=== PATIENT | female | born 1960 | race Caucasian/White ===

== ENCOUNTER 2020-10-26 09:06 | Inpatient (IN) | payer OTHER ==
[~2020-10-26] VITALS: Ht 162.6 cm; Wt 82.4 kg
[~2020-10-26 09:06] MED LIST: ACET-704 PO; AMOX1TAB61 PO; ASPI81TA50 PO; CANA100T PO; CEPH-264 PO; ERTU15TA PO; METF-658 PO
--- NOTE | 2020-10-26 09:29 | PHYS DOC ---
Past Medical History Past Medical History: Diabetes-Type II Additional Past Medical Histor: DECREASED L KIDNEY FUNCTION Past Surgical History: Other Additional Past Surgical Histo: cyst on L kidney Smoking Status: Former Smoker Alcohol Use: None General Adult EDM: Chief Complaint: ABNORMAL LABS HPI: HPI: This is a pleasant 60-year-old female who presents emergency department after being seen in the local clinic. She was called back because there were signs of kidney failure on her blood work. She had been having some right-sided abdomina l/flank pain. She describes the pain as a bloated sensation on the right abdomen and flank that comes and goes without alleviating factors. It is present now but is mild. She denies vomiting fevers chills or rashes. She denies chest pain or shortness of breath. She has a history of diabetes and takes Metformin but otherwise denies any major medical conditions. She has had a history of a kidney cyst with removal. Review of systems negative for chest pain shortness of breath vomiting fevers chills. All other review of systems negative. ED course: 60-year-old female presenting with signs of renal failure on her outpatient lab work. Labs here show acute renal failure. Potassium within normal limits. Metabolic acidosis present. I spoke with Dr. Senior and informed him about the patient. The patient has UTI so we will give IV Rocephin. Patient's lipase is elevated. CT abdomen pelvis is unremarkable for acute pathology. I spoke to the hospitalist who accepts patient for admission. Heart Score: Risk Factors: Risk Factors: DM, Current or recent (<one month) smoker, HTN, HLP, family history of CAD, obesity. Risk Scores: Score 0 - 3: 2.5% MACE over next 6 weeks - Discharge Home Score 4 - 6: 20.3% MACE over next 6 weeks - Admit for Clinical Observation Score 7 - 10: 72.7% MACE over next 6 weeks - Early Invasive Strategies Allergies: Allergies: Allergies Coded Allergies Type Severity Reaction Last Updated Verified No Known Drug Allergies 03/14/19 No Physical Exam: PE: Constitutional: Well developed, well nourished, no acute distress, non-toxic appearance. [] HENT: Normocephalic, atraumatic, bilateral external ears normal, oropharynx moist, no oral exudates, nose normal. [] Eyes: PERRLA, EOMI, conjunctiva normal, no discharge. [] Neck: Normal range of motion, no tenderness, supple, no stridor. [] Cardiovascular:Heart rate regular rhythm, no murmur [] Lungs & Thorax: Bilateral breath sounds clear to auscultation [] Abdomen: Bowel sounds normal, soft, no tenderness, no masses, no pulsatile masses. No rebound tenderness or guarding. She has some right CVA tenderness without left CVA tenderness Skin: Warm, dry, no erythema, no rash. [] Back: No tenderness midline. Atraumatic. Extremities: No tenderness, no cyanosis, no clubbing, ROM intact, no edema. [] Neurologic: Alert and oriented X 3, normal motor function, normal sensory function, no focal deficits noted. [] Psychologic: Affect normal, judgement normal, mood normal. [] Current Patient Data: Vital Signs: Vital Signs Date Time Temp Pulse Resp B/P (MAP) Pulse Ox O2 Delivery O2 Flow Rate FiO2 10/26/20 09:10 98.9 82 16 220/99 (139) 98 Room Air 98.9 141/93 (109) EKG: EKG: [] EKG shows sinus rhythm with a regular rate. ST segments congruent. Not suggestive of ACS. No peaking T waves. QRS is 98 ms. Radiology/Procedures: Radiology/Procedures: [] Course & Med Decision Making: Course & Med Decision Making Pertinent Labs and Imaging studies reviewed. (See chart for details) [] Dragon Disclaimer: Dragon Disclaimer: This electronic medical record was generated, in whole or in part, using a voice recognition dictation system. Departure Departure Impression: Primary Impression: ARF (acute renal failure) Additional Impression: Acute pancreatitis Disposition: ADMITTED INPT THIS HOSP Admitting Physician: HIMCt Condition: STABLE Referrals: MATA HERNDON DO (PCP) ROGER PENA MD Oct 26, 2020 09:29
[2020-10-26 09:38] LABS: BASO # 0.1 x10^3/uL (0.0-0.2); BASO % 1 % (0-3); EOS # 0.4 x10^3/uL (0.0-0.7); EOS % 4 % (0-3); HEMATOCRIT 31.3 % (36.0-47.0); HEMOGLOBIN 10.5 g/dL (12.0-15.5); LYMPH # 2.1 x10^3/uL (1.0-4.8); LYMPH % 21 % (24-48); MEAN CORPUSCULAR HEMOGLOBIN 28 pg (25-35); MEAN CORPUSCULAR HGB CONC 34 g/dL (31-37); MEAN CORPUSCULAR VOLUME 82 fL (79-100); MONO # 1.1 x10^3/uL (0.0-1.1); MONO % 12 % (0-9); NEUT # 6.1 x10^3/uL (1.8-7.7); NEUT % 62 % (31-73); PLATELET COUNT 321 x10^3/uL (140-400); RED BLOOD COUNT 3.82 x10^6/uL (3.50-5.40); RED CELL DISTRIBUTION WIDTH 15.8 % (11.5-14.5); WHITE BLOOD COUNT 9.8 x10^3/uL (4.0-11.0)
[2020-10-26 09:54] LABS: CALCIUM 8.8 mg/dL (8.5-10.1); CREATININE 8.1 mg/dL (0.6-1.0); POTASSIUM 4.6 mmol/L (3.5-5.1)
[2020-10-26 10:02] LABS: ALBUMIN 3.3 g/dL (3.4-5.0); DIRECT BILIRUBIN 0.1 mg/dL (0.0-0.2); TOTAL BILIRUBIN 0.5 mg/dL (0.2-1.0); TOTAL PROTEIN 7.6 g/dL (6.4-8.2)
--- NOTE | 2020-10-26 10:22 | RAD ---
PQRS Compliance Statement: One or more of the following individualized dose reduction techniques were utilized for this examinat ion: 1. Automated exposure control 2. Adjustment of the mA and/or kV according to patient size 3. Use of iterative reconstruction technique Exam performed: CT scan of the abdomen and pelvis without contrast. Clinical Indication: Right flank pain. Date of Service: 10/26/2020 comparison: CT abdomen and pelvis without contrast from 10/18/2019 and rebecca ors Technique: Contiguous helical acquisitions are obtained through the abdomen and pelvis without IV con trast. Sagittal and coronal reformatted images are obtained and reviewed. CT abdomen and pelvis findings: Small pleural-based soft tissue density linear opacity in the anterior left lower lobe is seen and is stable since prior CT chest from 2019 and is chronic. The right lung base is clear. Visualized heart is normal Lack of IV contrast limits evaluation of abdominal viscera, however the liver spleen and pancreas are normal. Cholelithiasis Both adrenal glands are symmetric. Interval resolution of previously seen lef t hydroureteronephrosis with mild left renal atrophy. No hydronephrosis or nephrolithiasis is seen. A azeem is normal in caliber without aneurysm. The small and large bowel loops are nondilated and unrema rkable. The visualized portion of the appendix is unremarkable. No inflammatory changes are seen in t he right lower quadrant Distal ureters are nondilated. Urinary bladder is decompressed and thick walled. [Uterus is anteverte d. No adnexal masses seen. Mild sigmoid diverticulosis.] No free or focal fluid collections are ident ified. Impression: 1. No acute intra-abdominal or pelvic process detected. 2. Cholelithiasis. 3. Sigmoid diverticulosis without acute diverticulitis. Electronically signed by: Nathalia Win MD (10/26/2020 10:19 AM) [id number]
[2020-10-26] MEDS ORDERED: IV NORMAL SALINE 1000ML BAG 1,000 ML IV ONE (10:30)
[2020-10-26 10:32] LABS: BILIRUBIN,URINE NEGATIVE (NEG); CLARITY,URINE CLEAR; COLOR,URINE YELLOW; NITRITE,URINE NEGATIVE (NEG); PROTEIN,URINE 30 mg/dL (NEG-TRACE); UROBILINOGEN,URINE 0.2 mg/dL (0.2 mg/dL)
[2020-10-26 10:53] LABS: BACTERIA,URINE FEW /HPF (0-FEW); WBC,URINE 20-40 /HPF (0-4)
--- NOTE | 2020-10-26 11:50 | PDOC2 ---
GI CONSULT Date of Service: DATE: 10/26/20 TIME: 11:35 Reason For Consult: elevated lipase HPI: HPI: Pleasant 60 y/o female seen in ER. Advised to come to hospital for abnormal outpt labs. Labs here note BUN 131, Cr 8.1, lipase 1543. We are asked to see re: elevated lipase. She denies abdominal pain. Occasional heartburn after eating spicy foods - probably takes Tums about once weekly. No dysphagia. Has had intermittent vomiting (once of twice weekly) for a few months - occurs in the mornings after brushing teeth but usually is able to eat and drink normally by the end of the day. Hasn't stooled in a few days ("because I'm dehydrated") but usually no issues w/ diarrhea or constipation. No hematemesis, hematochezia, or melena. Might have lost a couple pounds recently. No previous EGD. Says colonoscopy in 2002 at [facility] in [place] showed polyps. Diverticulosis noted on CT. Cholelithiasis on past and present imaging. Had surgery eval in 2019 - no cystic duct obstruction on HIDA. Says she was told not to worry about her gallbladder. Elevated LFTs in the past - normal now. Hepatitis panel negative in 2020. Hepatic steatosis/hepatomegaly on past imaging. No pancreas history. Denies NSAIDs. Recently took muscle relaxer (says took 2 pills) for right flank pain that began about 2 weeks ago without precipitating events. Worse w/ movement. Has improved - no pain currently. ASA 81mg QD. H/o DM on metformin. A1c last year 12. PMH: PMH: CHF, cardiomyopathy, NM, DM nephrostomy FH: Family History: Cancer (mother - kidney, father - prostate), DM Social History: Smoke: Quit ALCOHOL: none Drugs: None ROS: GEN: Denies fevers, chills, sweats HEENT: Denies blurred vision, sore throat CV: Denies chest pain RESP: Denies shortness of air, cough GI: Per HPI : Denies hematuria, dysuria ENDO: ?weight loss NEURO: Denies confusion, dizziness MSK: +weakness SKIN: Denies jaundice, pruritus Vitals: Vitals: Vital Signs Date Time Temp Pulse Resp B/P (MAP) Pulse Ox O2 Delivery O2 Flow Rate FiO2 10/26/20 09:10 98.9 82 16 220/99 (139) 98 Room Air 98.9 141/93 (109) Labs: Labs: Laboratory Tests Test 10/26/20 09:21 10/26/20 10:11 White Blood Count 9.8 x10^3/uL (4.0-11.0) Red Blood Count 3.82 x10^6/uL (3.50-5.40) Hemoglobin 10.5 g/dL (12.0-15.5) Hematocrit 31.3 % (36.0-47.0) Mean Corpuscular Volume 82 fL (79-100) Mean Corpuscular Hemoglobin 28 pg (25-35) Mean Corpuscular Hemoglobin Concent 34 g/dL (31-37) Red Cell Distribution Width 15.8 % (11.5-14.5) Platelet Count 321 x10^3/uL (140-400) Neutrophils (%) (Auto) 62 % (31-73) Lymphocytes (%) (Auto) 21 % (24-48) Monocytes (%) (Auto) 12 % (0-9) Eosinophils (%) (Auto) 4 % (0-3) Basophils (%) (Auto) 1 % (0-3) Neutrophils # (Auto) 6.1 x10^3/uL (1.8-7.7) Lymphocytes # (Auto) 2.1 x10^3/uL (1.0-4.8) Monocytes # (Auto) 1.1 x10^3/uL (0.0-1.1) Eosinophils # (Auto) 0.4 x10^3/uL (0.0-0.7) Basophils # (Auto) 0.1 x10^3/uL (0.0-0.2) Sodium Level 133 mmol/L (136-145) Potassium Level 4.6 mmol/L (3.5-5.1) Chloride Level 98 mmol/L (98-107) Carbon Dioxide Level 19 mmol/L (21-32) Anion Gap 16 (6-14) Blood Urea Nitrogen 131 mg/dL (7-20) Creatinine 8.1 mg/dL (0.6-1.0) Estimated GFR (Cockcroft-Gault) 5.0 Glucose Level 202 mg/dL (70-99) Calcium Level 8.8 mg/dL (8.5-10.1) Total Bilirubin 0.5 mg/dL (0.2-1.0) Direct Bilirubin 0.1 mg/dL (0.0-0.2) Aspartate Amino Transf (AST/SGOT) 10 U/L (15-37) Alanine Aminotransferase (ALT/SGPT) 17 U/L (14-59) Alkaline Phosphatase 63 U/L (46-116) Troponin I Quantitative < 0.017 ng/mL (0.000-0.055) Total Protein 7.6 g/dL (6.4-8.2) Albumin 3.3 g/dL (3.4-5.0) Lipase 1543 U/L (73-393) Urine Collection Type Unknown Urine Color Yellow Urine Clarity Clear Urine pH 6.0 (<5.0-8.0) Urine Specific [place] 1.010 (1.000-1.030) Urine Protein 30 mg/dL (NEG-TRACE) Urine Glucose (UA) 250 mg/dL (NEG) Urine Ketones (Stick) Negative mg/dL (NEG) Urine Blood Small (NEG) Urine Nitrite Negative (NEG) Urine Bilirubin Negative (NEG) Urine Urobilinogen Dipstick 0.2 mg/dL (0.2 mg/dL) Urine Leukocyte Esterase Large (NEG) Urine RBC 3-5 /HPF (0-2) Urine WBC 20-40 /HPF (0-4) Urine Squamous Epithelial Cells Occ /LPF Urine Bacteria Few /HPF (0-FEW) Allergies: Coded Allergies: No Known Drug Allergies (Unverified , 03/14/19) Medications: Current Medications Medications (Trade) Dose Ordered Sig/Nilesh Route PRN Reason Start Time Stop Time Status Last Admin Dose Admin Sodium Chloride 1,000 ml @ 100 mls/hr 1X ONCE IV 10/26/20 10:30 10/26/20 20:29 10/26/20 11:28 Ceftriaxone Sodium (Rocephin) 1 gm 1X ONCE IVP 10/26/20 12:00 10/26/20 12:01 10/26/20 11:28 Imaging: Imaging: CT A/P w/o contrast Small pleural-based soft tissue density linear opacity in the anterior left lower lobe is seen and is stable since prior CT chest from 2019 and is chronic. The right lung base is clear. Visualized heart is normal Lack of IV contrast limits evaluation of abdominal viscera, however the liver spleen and pancreas are normal. Cholelithiasis Both adrenal glands are symmetric. Interval resolution of previously seen left hydroureteronephrosis with mild left renal atrophy. No hydronephrosis or nephrolithiasis is seen. Aorta is normal in caliber without aneurysm. The small and large bowel loops are nondilated and unremarkable. The visualized portion of the appendix is unremarkable. No inflammatory changes are seen in the right lower quadrant Distal ureters are nondilated. Urinary bladder is decompressed and thick walled. [Uterus is anteverted. No adnexal masses seen. Mild sigmoid diverticulosis.] No free or focal fluid collections are identified. Impression: 1. No acute intra-abdominal or pelvic process detected. 2. Cholelithiasis. 3. Sigmoid diverticulosis without acute diverticulitis. PE: GEN: NAD HEENT: Atraumatic, PERRL LUNGS: CTAB HEART: RRR ABD: NABS, S/ND/NT EXTREMITY: No edema SKIN: No rashes, no jaundice NEURO/PSYCH: A & O 3 A/P: A/P: REESE/?UTI Occasional heartburn, intermittent vomiting CRC screen, h/o polyps - reports colonoscopy in [place] in 2002 ?constipation Diverticulosis Cholelithiasis - known Hepatic steatosis/hepatomegaly DM -- Unclear significance of elevated lipase. Normal pancreas on CT and no abdominal pain. Intermittent vomiting probably multi-factorial - ?GERD ?delayed gastric emptying - renal failure doesn't help. Treat renal failure. Try daily acid-gse mechanic if okay w/ nephrology. Use Miralax, etc. if needed. Follow-up for outpt screening colonoscopy +/- EGD. KIRTI JIMENEZ Oct 26, 2020 11:50
[2020-10-26] MEDS ORDERED: BISACODYL 5 MG TABLET.DR. PO PRN (12:00)
[2020-10-26] MEDS ORDERED: cefTRIAXone IV Push 1 GM VIAL. IVP ONE (12:00)
[2020-10-26 12:15] VITALS: BP 192/87
[2020-10-26] MEDS: PANTOPRAZOLE 40 MG TABLET.DR. PO SCH (12:15)
[2020-10-26] MEDS: POLYETHYLENE GLYCOL 3350 17 GM PACKET. PO SCH (12:15)
[2020-10-26] MEDS ORDERED: METOPROLOL IV PUSH 5 MG/5 ML VIAL. IVP PRN (13:15)
[2020-10-26] MEDS ORDERED: LABETALOL 20 MG/4 ML DISP.SYRIN. IVP PRN ×2 (13:15→13:30)
--- NOTE | 2020-10-26 14:43 | PDOC1 ---
History and Physical Date of Service: DOS: DATE: 10/26/20 TIME: 14:34 Chief Complaint: Chief Complain: dizziness and weakness History of Present Illness: HPI: Patient is a 60-year-old female with past medical history of diabetes mellitus type 2 who comes in with complaints of dizziness and weakness in her lower extremities. She also had some right-sided flank pain in which she had a injection trigger point last week and said that her pain improved slightly with that. However, she has been dealing with this dizziness for the past couple of weeks. Patient denies any fevers, chills, rashes, chest pain or shortness of breath or abdominal pain or dysuria. Patient does have a history of diabetes which she takes Metformin as she said that she takes other medications in which she said that she does not feel good taking them. Patient did have some outpatient lab work done at that is why she came because they stated that she had some renal failure. Patient does also have a remote history of a cyst drainage percutaneously done in February 2019. She also had a nephrostomy tube that was placed but that was removed by urology around that time. Denies kidney st ones, dysuria, hematuria or incontinence or frequency. Of note, patient was recently admitted to the hospital for treatment for pneumonia and she was taking Levaquin at that time. Past Medical/Surgical History: PMH/PSH: Past Medical History: Diabetes-Type II, DECREASED L KIDNEY FUNCTION Past Surgical History: cyst on L kidney status post drainage in 2018 Allergies: Allergies: Coded Allergies: No Known Drug Allergies (Unverified , 03/14/19) Family History: Family History: Reviewed with no relevant findings Social History: Social History: Smoking Status: Former Smoker Alcohol Use: None Current Medications: Current Medications Current Medications Sodium Chloride 1,000 ml @ 100 mls/hr 1X ONCE IV Last administered on 10/26/20at 11:28; Start 10/26/20 at 10:30; Stop 10/26/20 at 20:29 Ceftriaxone Sodium (Rocephin) 1 gm 1X ONCE IVP Last administered on 10/26/20at 11:28; Start 10/26/20 at 12:00; Stop 10/26/20 at 12:01; Status DC Pantoprazole Sodium (Protonix) 40 mg DAILYAC PO Last administered on 10/26/20at 12:15; Start 10/26/20 at 12:00 Polyethylene Glycol (miraLAX PACKET) 17 gm DAILY PO Last administered on 10/26/20at 12:15; Start 10/26/20 at 12:00 Bisacodyl (Dulcolax Tab) 5 mg PRN DAILY PRN PO CONSTIPATION; Start 10/26/20 at 12:00 Metoprolol Tartrate (Lopressor Vial) 5 mg PRN Q6HRS PRN IVP HYPERTENSION, 1ST CHOICE; Start 10/26/20 at 13:15; Stop 10/26/20 at 13:15; Status DC Labetalol HCl (Normodyne Iv Push) 20 mg PRN Q2HR PRN IVP HYPERTENSION; Start 10/26/20 at 13:15; Stop 10/26/20 at 13:20; Status DC Labetalol HCl (Normodyne Iv Push) 10 mg PRN Q2HR PRN IVP HYPERTENSION Last administered on 10/26/20at 13:27; Start 10/26/20 at 13:30 Active Scripts Active Reported Aspir-Low (Aspirin) 81 Mg Tablet.dr 1 Tab PO DAILY Metformin Hcl Er (Metformin Hcl) 500 Mg Tab.er.24h 500 Mg PO BIDWMEALS ROS: Review of Systems Review of System REVIEW OF SYSTEMS: GENERAL: Denies weakness SKIN: No bruising, hair changes or rashes. EYES: No blurred, double or loss of vision. NOSE AND THROAT: No history of nosebleeds, hoarseness or sore throat. HEART: No history of palpitations, chest pain or shortness of breath on exertion. LUNGS: Denies cough, hemoptysis, wheezing or shortness of breath. GASTROINTESTINAL: Denies changes in appetite, nausea, vomiting, diarrhea or constipation. GENITOURINARY: No history of frequency, urgency, hesitancy or nocturia. NEUROLOGIC: Denies history of numbness, tingling, or tremor. PSYCHIATRIC: No history of panic, anxiety or depression. ENDOCRINE: No history of heat or cold intolerance, polyuria or polydipsia. EXTREMITIES: Denies joint pain, pain on walking or stiffness. Physical Exam: Vital Signs: Vital Signs Date Time Temp Pulse Resp B/P (MAP) Pulse Ox O2 Delivery O2 Flow Rate FiO2 10/26/20 13:27 72 192/87 10/26/20 12:52 Room Air 10/26/20 12:15 97.4 18 99 97.4 Physcial Exam: GEN: No apparent distress. Alert and oriented HEENT: Normal cephalic, atraumatic, external auditory canals are patent EYES: Extraocular muscles are intact, pupil are equally round and reactive to light and accommodation MUSCULOSKELETAL: Well developed , well nourished, good range of motion ENDOCRINE: No thyromegaly was palpated LYMPHATICS: No cervical chain or axillary nodes were noted HEMATOPOIETIC: No bruising NECK: Supple, no JVD, no thyromegaly was noted LUNGS: Clear to auscultation in all lung guerrero without rhonchi or wheezing HEART: RRR, S!, S2 present. Peripheral pulses intact, no obvious murmurs noted ABDOMEN: Soft, nontender. Positive bowel sounds, no organomegaly, normal bowel sounds EXTREMITIES: Without clubbing, cyanosis, or edema. Pedal pulses intact. Negative Homans sign NEUROLOGIC: Normal speech and tone. A&O x 3, moves all extremities, no obvious focal deficits PSYCHIATRIC: Normal affect, normal mood. Stable SKIN: No ulcerations or rashes, good skin turgor, no jaundice VASCULAR: Good capillary refill, neurovascular bundle appears to be intact Labs: Labs: Laboratory Tests Test 10/26/20 09:21 10/26/20 10:11 10/26/20 12:25 White Blood Count 9.8 x10^3/uL (4.0-11.0) Red Blood Count 3.82 x10^6/uL (3.50-5.40) Hemoglobin 10.5 g/dL (12.0-15.5) Hematocrit 31.3 % (36.0-47.0) Mean Corpuscular Volume 82 fL (79-100) Mean Corpuscular Hemoglobin 28 pg (25-35) Mean Corpuscular Hemoglobin Concent 34 g/dL (31-37) Red Cell Distribution Width 15.8 % (11.5-14.5) Platelet Count 321 x10^3/uL (140-400) Neutrophils (%) (Auto) 62 % (31-73) Lymphocytes (%) (Auto) 21 % (24-48) Monocytes (%) (Auto) 12 % (0-9) Eosinophils (%) (Auto) 4 % (0-3) Basophils (%) (Auto) 1 % (0-3) Neutrophils # (Auto) 6.1 x10^3/uL (1.8-7.7) Lymphocytes # (Auto) 2.1 x10^3/uL (1.0-4.8) Monocytes # (Auto) 1.1 x10^3/uL (0.0-1.1) Eosinophils # (Auto) 0.4 x10^3/uL (0.0-0.7) Basophils # (Auto) 0.1 x10^3/uL (0.0-0.2) Sodium Level 133 mmol/L (136-145) Potassium Level 4.6 mmol/L (3.5-5.1) Chloride Level 98 mmol/L (98-107) Carbon Dioxide Level 19 mmol/L (21-32) Anion Gap 16 (6-14) Blood Urea Nitrogen 131 mg/dL (7-20) Creatinine 8.1 mg/dL (0.6-1.0) Estimated GFR (Cockcroft-Gault) 5.0 Glucose Level 202 mg/dL (70-99) Lactic Acid Level 0.8 mmol/L (0.4-2.0) Calcium Level 8.8 mg/dL (8.5-10.1) Total Bilirubin 0.5 mg/dL (0.2-1.0) Direct Bilirubin 0.1 mg/dL (0.0-0.2) Aspartate Amino Transf (AST/SGOT) 10 U/L (15-37) Alanine Aminotransferase (ALT/SGPT) 17 U/L (14-59) Alkaline Phosphatase 63 U/L (46-116) Troponin I Quantitative < 0.017 ng/mL (0.000-0.055) Total Protein 7.6 g/dL (6.4-8.2) Albumin 3.3 g/dL (3.4-5.0) Lipase 1543 U/L (73-393) Urine Collection Type Unknown Urine Color Yellow Urine Clarity Clear Urine pH 6.0 (<5.0-8.0) Urine Specific [place] 1.010 (1.000-1.030) Urine Protein 30 mg/dL (NEG-TRACE) Urine Glucose (UA) 250 mg/dL (NEG) Urine Ketones (Stick) Negative mg/dL (NEG) Urine Blood Small (NEG) Urine Nitrite Negative (NEG) Urine Bilirubin Negative (NEG) Urine Urobilinogen Dipstick 0.2 mg/dL (0.2 mg/dL) Urine Leukocyte Esterase Large (NEG) Urine RBC 3-5 /HPF (0-2) Urine WBC 20-40 /HPF (0-4) Urine Squamous Epithelial Cells Occ /LPF Urine Bacteria Few /HPF (0-FEW) Glucose (Fingerstick) 214 mg/dL (70-99) Laboratory Tests Test 10/26/20 09:21 10/26/20 10:11 10/26/20 12:25 White Blood Count 9.8 x10^3/uL (4.0-11.0) Red Blood Count 3.82 x10^6/uL (3.50-5.40) Hemoglobin 10.5 g/dL (12.0-15.5) Hematocrit 31.3 % (36.0-47.0) Mean Corpuscular Volume 82 fL (79-100) Mean Corpuscular Hemoglobin 28 pg (25-35) Mean Corpuscular Hemoglobin Concent 34 g/dL (31-37) Red Cell Distribution Width 15.8 % (11.5-14.5) Platelet Count 321 x10^3/uL (140-400) Neutrophils (%) (Auto) 62 % (31-73) Lymphocytes (%) (Auto) 21 % (24-48) Monocytes (%) (Auto) 12 % (0-9) Eosinophils (%) (Auto) 4 % (0-3) Basophils (%) (Auto) 1 % (0-3) Neutrophils # (Auto) 6.1 x10^3/uL (1.8-7.7) Lymphocytes # (Auto) 2.1 x10^3/uL (1.0-4.8) Monocytes # (Auto) 1.1 x10^3/uL (0.0-1.1) Eosinophils # (Auto) 0.4 x10^3/uL (0.0-0.7) Basophils # (Auto) 0.1 x10^3/uL (0.0-0.2) Sodium Level 133 mmol/L (136-145) Potassium Level 4.6 mmol/L (3.5-5.1) Chloride Level 98 mmol/L (98-107) Carbon Dioxide Level 19 mmol/L (21-32) Anion Gap 16 (6-14) Blood Urea Nitrogen 131 mg/dL (7-20) Creatinine 8.1 mg/dL (0.6-1.0) Estimated GFR (Cockcroft-Gault) 5.0 Glucose Level 202 mg/dL (70-99) Lactic Acid Level 0.8 mmol/L (0.4-2.0) Calcium Level 8.8 mg/dL (8.5-10.1) Total Bilirubin 0.5 mg/dL (0.2-1.0) Direct Bilirubin 0.1 mg/dL (0.0-0.2) Aspartate Amino Transf (AST/SGOT) 10 U/L (15-37) Alanine Aminotransferase (ALT/SGPT) 17 U/L (14-59) Alkaline Phosphatase 63 U/L (46-116) Troponin I Quantitative < 0.017 ng/mL (0.000-0.055) Total Protein 7.6 g/dL (6.4-8.2) Albumin 3.3 g/dL (3.4-5.0) Lipase 1543 U/L (73-393) Urine Collection Type Unknown Urine Color Yellow Urine Clarity Clear Urine pH 6.0 (<5.0-8.0) Urine Specific [place] 1.010 (1.000-1.030) Urine Protein 30 mg/dL (NEG-TRACE) Urine Glucose (UA) 250 mg/dL (NEG) Urine Ketones (Stick) Negative mg/dL (NEG) Urine Blood Small (NEG) Urine Nitrite Negative (NEG) Urine Bilirubin Negative (NEG) Urine Urobilinogen Dipstick 0.2 mg/dL (0.2 mg/dL) Urine Leukocyte Esterase Large (NEG) Urine RBC 3-5 /HPF (0-2) Urine WBC 20-40 /HPF (0-4) Urine Squamous Epithelial Cells Occ /LPF Urine Bacteria Few /HPF (0-FEW) Glucose (Fingerstick) 214 mg/dL (70-99) Images: Images CT ABD/PELVIS Impression: 1. No acute intra-abdominal or pelvic process detected. 2. Cholelithiasis. 3. Sigmoid diverticulosis without acute diverticulitis. Assessment/Plan Assessment/Plan Acute hypertensive emergency Acute renal failure Hyponatremia Normocytic anemia Elevated lipase Admit to medicine for further management Continue IV fluids Strict I's and O's Nephrology consult R ISS and Accu-Cheks IV labetalol as needed for systolic blood pressure goals less than 180 Heparin for DVT prophylaxis ADA diet Full code Discussed with RN and SW Disposition inpatient management as above Surrogate decision maker is the Justifications for Admission Other Justification MYRON JACOB MD Oct 26, 2020 14:43
[2020-10-26] MEDS ORDERED: ACETAMINOPHEN 325 MG TABLET. PO PRN (14:45)
[2020-10-26] MEDS ORDERED: SENNOSIDES 8.6 MG TABLET PO PRN (14:45)
[2020-10-26] MEDS ORDERED: DEXTROSE 50% 25 GM / 50ML DISP.SYRIN. IV PRN ×2 (14:45)
[2020-10-26 15:00] VITALS: BP 164/72
[2020-10-26] MEDS: INSULIN LISPRO 300 UNITS/3 ML VIAL. SQ SCH (17:15)
[2020-10-26 19:00] VITALS: BP 166/80
[2020-10-26] MEDS: IV NORMAL SALINE 1000ML BAG 1,000 ML IV SCH (21:07)
[2020-10-26 23:00] VITALS: BP 172/81
[2020-10-27 00:08] LABS: UR POTASSIUM 20.9 mmol/L (Not Estab.)
[2020-10-27 01:15] LABS: HEMOGLOBIN A1C 9.7 % (4.8-5.6)
[2020-10-27 03:00] VITALS: BP 167/79
[2020-10-27] MEDS: PANTOPRAZOLE 40 MG TABLET.DR. PO SCH (05:30)
[2020-10-27] MEDS: IV NORMAL SALINE 1000ML BAG 1,000 ML IV SCH ×3 (05:31→23:44)
[2020-10-27 07:00] VITALS: BP 178/85
[2020-10-27] MEDS: ONDANSETRON PF 4 MG/2 ML VIAL. IVP PRN (08:13)
[2020-10-27] MEDS: INSULIN LISPRO 300 UNITS/3 ML VIAL. SQ SCH ×3 (08:19→17:00)
[2020-10-27] MEDS: POLYETHYLENE GLYCOL 3350 17 GM PACKET. PO SCH (09:00)
--- NOTE | 2020-10-27 09:13 | PDOC ---
PROGRESS NOTES Date of Service: DATE: 10/27/20 TIME: 09:13 Chief Complaint Chief Complaint Impression: 1. No acute intra-abdominal or pelvic process detected. 2. Cholelithiasis. 3. Sigmoid diverticulosis without acute diverticulitis. impression Assessment/Plan Acute hypertensive emergency Acute renal failure remote history of a cyst drainage percutaneously done in February 2019. had a nephrostomy tube that was placed but that was removed by urology around that time. hyponatremia hyperkalemia Normocytic anemia Elevated lipase Cholelithiasis. diabetes stress test showed mixed perfusion defect involving the mid to distal anterior and anterolateral avalos consistent with small infarct and moderate amount of ischemia. 2018 Mid to distal anterior wall hypokinesis with ejection fraction calculated at 50%. plan Admit to medicine for further management Continue IV fluids Strict I's and O's Nephrology consult R ISS and Accu-Cheks IV labetalol as needed for systolic blood pressure goals less than 180 Heparin for DVT prophylaxis ADA diet Full code Discussed with RN and SW Disposition inpatient management Surrogate decision maker is the consider renal bx if cr not improved cardiology consult 39 min pt exam, chart review, > 50% of time spent with exam, chart review, pt care coordination Justifications for Admission Justifications for Admission Other Justification History of Present Illness History of Present Illness Chief Complaint: Chief Complain: dizziness and weakness History of Present Illness: HPI: Patient is a 60-year-old female with past medical history of diabetes mellitus type 2 who comes in with complaints of dizziness and weakness in her lower extremities. She also had some right-sided flank pain in which she had a injection trigger point last week and said that her pain improved slightly with that. However, she has been dealing with this dizziness for the past couple of weeks. Patient denies any fevers, chills, rashes, chest pain or shortness of breath or abdominal pain or dysuria. Patient does have a history of diabetes which she takes Metformin as she said that she takes other medications in which she said that she does not feel good taking them. Patient did have some outpatient lab work done at that is why she came because they stated that she had some renal failure. Patient does also have a remote history of a cyst drainage percutaneously done in February 2019. She also had a nephrostomy tube that was placed but that was removed by urology around that time. Denies kidney stones, dysuria, hematuria or incontinence or frequency. Of note, patient was recently admitted to the hospital for treatment for pneumonia and she was taking Levaquin at that time. Past Medical/Surgical History: PMH/PSH: Past Medical History: Diabetes-Type II, DECREASED L KIDNEY FUNCTION Past Surgical History: cyst on L kidney status post drainage in 2018 Allergies: Allergies: Coded Allergies: No Known Drug Allergies (Unverified , 03/14/19) Family History: Family History: Reviewed with no relevant findings Social History: Social History: Smoking Status: Former Smoker Alcohol Use: None Vitals Vitals Vital Signs Date Time Temp Pulse Resp B/P (MAP) Pulse Ox O2 Delivery O2 Flow Rate FiO2 10/27/20 07:00 97.9 70 16 178/85 (116) 100 Room Air 97.9 Physical Exam Physical Exam GEN: No apparent distress. Alert and oriented HEENT: Normal cephalic, atraumatic, external auditory canals are patent EYES: Extraocular muscles are intact, pupil are equally round and reactive to light and accommodation MUSCULOSKELETAL: Well developed , well nourished, good range of motion ENDOCRINE: No thyromegaly was palpated LYMPHATICS: No cervical chain or axillary nodes were noted HEMATOPOIETIC: No bruising NECK: Supple, no JVD, no thyromegaly was noted LUNGS: Clear to auscultation in all lung guerrero without rhonchi or wheezing HEART: RRR, S!, S2 present. Peripheral pulses intact, no obvious murmurs noted ABDOMEN: Soft, nontender. Positive bowel sounds, no organomegaly, normal bowel sounds EXTREMITIES: Without clubbing, cyanosis, or edema. Pedal pulses intact. Negative Homans sign NEUROLOGIC: Normal speech and tone. A&O x 3, moves all extremities, no obvious focal deficits PSYCHIATRIC: Normal affect, normal mood. Stable SKIN: No ulcerations or rashes, good skin turgor, no jaundice VASCULAR: Good capillary refill, neurovascular bundle appears to be intact General: Oriented X3, Cooperative, No acute distress Heart: Regular rate Extremities: No edema Labs LABS Rest: Stress: Viability: Radiopharm. Tc99m Sestamibi Tc99m Sestamibi Dose 12mCi 32.1mCi Duration 13min. 13min. Img Date 03/18/2019 03/18/2019 Inj-Img Time 60min. 60min. Rest Admin Site: IV - Left Wrist Thread Tool Grinder Set Up Operator: Braden Rain, RT (R)(N) Stress Admin Site: IV - Left Wrist Thread Tool Grinder Set Up Operator: Rut Telles RT (R)(N) STRESS DATA End Diast. Vol. 119.0ml LVEDV index BSA 59.0ml End Syst. Vol. 60.0ml LVESV index BSA 30.0ml Myocardial Mass 152.0g Eject. Fraction 50.0% Stress Scores Regional WT 2.00 Summed WT 34.00 Regional WM 0.00 Summed WM 23.00 LV Perfusion Scintigraphic images showed mixed perfusion defect involving mid to distal anterior and anterolateral avalos consistent with small infarct and moderate amount of ischemia. Wall Motion Mid to distal anterior wall hypokinesis with ejection fraction calculated at 50%. LV Perf. Quant 17 Seg. SSS 16.00 17 Seg. SRS 9.00 17 Seg. SDS 7.00 Stress Defect Extent (% LAD) 59.40 Rest Defect Extent (% LAD) 37.50 Rev. Defect Extent (% LAD) 20.60 Stress Defect Extent (% LCX) 35.00 Rest Defect Extent (% LCX) 8.80 Rev. Defect Extent (% LCX) 28.80 Stress Defect Extent (% RCA) 2.20 Rest Defect Extent (% RCA) 1.10 Rev. Defect Extent (% RCA) 0.00 Stress Defect Extent (% DB) 37.00 Rest Defect Extent (% DB) 21.10 Rev. Defect Extent (% DB) 15.40 Conclusion 1. Regadenoson cardioisotope stress test showed mixed perfusion defect involving the mid to distal anterior and anterolateral avalos consistent with small infarct and moderate amount of ischemia. 2. Mid to distal anterior wall hypokinesis with ejection fraction calculated at 50%. 3. Intermediate risk for cardiac events. Signed by : Frank Weiss, Electronically Approved : 03/18/2019 12:55:09 DICTATED and SIGNED BY: FRANK WEISS MD DATE: 03/18/19 1255 [facility] Compliance Statement: One or more of the following individualized dose reduction techniques were utilized for this examination: 1. Automated exposure control 2. Adjustment of the mA and/or kV according to patient size 3. Use of iterative reconstruction technique Exam performed: CT scan of the abdomen and pelvis without contrast. Clinical Indication: Right flank pain. Date of Service: 10/26/2020 comparison: CT abdomen and pelvis without contrast from 10/18/2019 and priors Technique: Contiguous helical acquisitions are obtained through the abdomen and pelvis without IV contrast. Sagittal and coronal reformatted images are obtained and reviewed. CT abdomen and pelvis findings: Small pleural-based soft tissue density linear opacity in the anterior left lower lobe is seen and is stable since prior CT chest from 2019 and is chronic. The right lung base is clear. Visualized heart is normal Lack of IV contrast limits evaluation of abdominal viscera, however the liver spleen and pancreas are normal. Cholelithiasis Both adrenal glands are symmetric. Interval resolution of previously seen left hydroureteronephrosis with mild left renal atrophy. No hydronephrosis or nephrolithiasis is seen. Aorta is normal in caliber without aneurysm. The small and large bowel loops are nondilated and unremarkable. The visualized portion of the appendix is unremarkable. No inflammatory changes are seen in the right lower quadrant Distal ureters are nondilated. Urinary bladder is decompressed and thick walled. [Uterus is anteverted. No adnexal masses seen. Mild sigmoid diverticulosis.] No free or focal fluid collections are identified. Impression: 1. No acute intra-abdominal or pelvic process detected. 2. Cholelithiasis. 3. Sigmoid diverticulosis without acute diverticulitis. Electronically signed by: Nathalia Win MD (10/26/2020 10:19 AM) [id number] DICTATED and SIGNED BY: NATHALIA WIN MD DATE: 10/26/20 [id number] Laboratory Tests Test 10/26/20 09:21 10/26/20 10:11 10/26/20 12:25 10/26/20 16:25 White Blood Count 9.8 x10^3/uL (4.0-11.0) Red Blood Count 3.82 x10^6/uL (3.50-5.40) Hemoglobin 10.5 g/dL (12.0-15.5) Hematocrit 31.3 % (36.0-47.0) Mean Corpuscular Volume 82 fL (79-100) Mean Corpuscular Hemoglobin 28 pg (25-35) Mean Corpuscular Hemoglobin Concent 34 g/dL (31-37) Red Cell Distribution Width 15.8 % (11.5-14.5) Platelet Count 321 x10^3/uL (140-400) Neutrophils (%) (Auto) 62 % (31-73) Lymphocytes (%) (Auto) 21 % (24-48) Monocytes (%) (Auto) 12 % (0-9) Eosinophils (%) (Auto) 4 % (0-3) Basophils (%) (Auto) 1 % (0-3) Neutrophils # (Auto) 6.1 x10^3/uL (1.8-7.7) Lymphocytes # (Auto) 2.1 x10^3/uL (1.0-4.8) Monocytes # (Auto) 1.1 x10^3/uL (0.0-1.1) Eosinophils # (Auto) 0.4 x10^3/uL (0.0-0.7) Basophils # (Auto) 0.1 x10^3/uL (0.0-0.2) Sodium Level 133 mmol/L (136-145) Potassium Level 4.6 mmol/L (3.5-5.1) Chloride Level 98 mmol/L (98-107) Carbon Dioxide Level 19 mmol/L (21-32) Anion Gap 16 (6-14) Blood Urea Nitrogen 131 mg/dL (7-20) Creatinine 8.1 mg/dL (0.6-1.0) Estimated GFR (Cockcroft-Gault) 5.0 Glucose Level 202 mg/dL (70-99) Hemoglobin A1c 9.7 % (4.8-5.6) Lactic Acid Level 0.8 mmol/L (0.4-2.0) Calcium Level 8.8 mg/dL (8.5-10.1) Iron Level 90 ug/dL (50-170) Total Iron Binding Capacity 275 ug/dL (250-450) Iron Saturation 33 % (15-34) Total Bilirubin 0.5 mg/dL (0.2-1.0) Direct Bilirubin 0.1 mg/dL (0.0-0.2) Aspartate Amino Transf (AST/SGOT) 10 U/L (15-37) Alanine Aminotransferase (ALT/SGPT) 17 U/L (14-59) Alkaline Phosphatase 63 U/L (46-116) Troponin I Quantitative < 0.017 ng/mL (0.000-0.055) Total Protein 7.6 g/dL (6.4-8.2) Albumin 3.3 g/dL (3.4-5.0) Lipase 1543 U/L (73-393) Urine Collection Type Unknown Urine Color Yellow Urine Clarity Clear Urine pH 6.0 (<5.0-8.0) Urine Specific Rothschild 1.010 (1.000-1.030) Urine Protein 30 mg/dL (NEG-TRACE) Urine Glucose (UA) 250 mg/dL (NEG) Urine Ketones (Stick) Negative mg/dL (NEG) Urine Blood Small (NEG) Urine Nitrite Negative (NEG) Urine Bilirubin Negative (NEG) Urine Urobilinogen Dipstick 0.2 mg/dL (0.2 mg/dL) Urine Leukocyte Esterase Large (NEG) Urine RBC 3-5 /HPF (0-2) Urine WBC 20-40 /HPF (0-4) Urine Squamous Epithelial Cells Occ /LPF Urine Bacteria Few /HPF (0-FEW) Glucose (Fingerstick) 214 mg/dL (70-99) Urine Sodium 70 mmol/L (Not Estab.) Urine Potassium 20.9 mmol/L (Not Estab.) Urine Chloride 63 mmol/L (Not Estab.) Test 10/26/20 16:56 10/27/20 07:29 Glucose (Fingerstick) 348 mg/dL (70-99) 225 mg/dL (70-99) Assessment and Plan Assessmemt and Plan Problems Medical Problems: (1) Acute pancreatitis Status: Acute (2) ARF (acute renal failure) Status: Acute Comment Review of Relevant I have reviewed the following items misha (where applicable) has been applied. Labs Laboratory Tests Test 10/26/20 09:21 10/26/20 10:11 10/26/20 12:25 10/26/20 16:25 White Blood Count 9.8 x10^3/uL (4.0-11.0) Red Blood Count 3.82 x10^6/uL (3.50-5.40) Hemoglobin 10.5 g/dL (12.0-15.5) Hematocrit 31.3 % (36.0-47.0) Mean Corpuscular Volume 82 fL (79-100) Mean Corpuscular Hemoglobin 28 pg (25-35) Mean Corpuscular Hemoglobin Concent 34 g/dL (31-37) Red Cell Distribution Width 15.8 % (11.5-14.5) Platelet Count 321 x10^3/uL (140-400) Neutrophils (%) (Auto) 62 % (31-73) Lymphocytes (%) (Auto) 21 % (24-48) Monocytes (%) (Auto) 12 % (0-9) Eosinophils (%) (Auto) 4 % (0-3) Basophils (%) (Auto) 1 % (0-3) Neutrophils # (Auto) 6.1 x10^3/uL (1.8-7.7) Lymphocytes # (Auto) 2.1 x10^3/uL (1.0-4.8) Monocytes # (Auto) 1.1 x10^3/uL (0.0-1.1) Eosinophils # (Auto) 0.4 x10^3/uL (0.0-0.7) Basophils # (Auto) 0.1 x10^3/uL (0.0-0.2) Sodium Level 133 mmol/L (136-145) Potassium Level 4.6 mmol/L (3.5-5.1) Chloride Level 98 mmol/L (98-107) Carbon Dioxide Level 19 mmol/L (21-32) Anion Gap 16 (6-14) Blood Urea Nitrogen 131 mg/dL (7-20) Creatinine 8.1 mg/dL (0.6-1.0) Estimated GFR (Cockcroft-Gault) 5.0 Glucose Level 202 mg/dL (70-99) Hemoglobin A1c 9.7 % (4.8-5.6) Lactic Acid Level 0.8 mmol/L (0.4-2.0) Calcium Level 8.8 mg/dL (8.5-10.1) Iron Level 90 ug/dL (50-170) Total Iron Binding Capacity 275 ug/dL (250-450) Iron Saturation 33 % (15-34) Total Bilirubin 0.5 mg/dL (0.2-1.0) Direct Bilirubin 0.1 mg/dL (0.0-0.2) Aspartate Amino Transf (AST/SGOT) 10 U/L (15-37) Alanine Aminotransferase (ALT/SGPT) 17 U/L (14-59) Alkaline Phosphatase 63 U/L (46-116) Troponin I Quantitative < 0.017 ng/mL (0.000-0.055) Total Protein 7.6 g/dL (6.4-8.2) Albumin 3.3 g/dL (3.4-5.0) Lipase 1543 U/L (73-393) Urine Collection Type Unknown Urine Color Yellow Urine Clarity Clear Urine pH 6.0 (<5.0-8.0) Urine Specific Rothschild 1.010 (1.000-1.030) Urine Protein 30 mg/dL (NEG-TRACE) Urine Glucose (UA) 250 mg/dL (NEG) Urine Ketones (Stick) Negative mg/dL (NEG) Urine Blood Small (NEG) Urine Nitrite Negative (NEG) Urine Bilirubin Negative (NEG) Urine Urobilinogen Dipstick 0.2 mg/dL (0.2 mg/dL) Urine Leukocyte Esterase Large (NEG) Urine RBC 3-5 /HPF (0-2) Urine WBC 20-40 /HPF (0-4) Urine Squamous Epithelial Cells Occ /LPF Urine Bacteria Few /HPF (0-FEW) Glucose (Fingerstick) 214 mg/dL (70-99) Urine Sodium 70 mmol/L (Not Estab.) Urine Potassium 20.9 mmol/L (Not Estab.) Urine Chloride 63 mmol/L (Not Estab.) Test 10/26/20 16:56 10/27/20 07:29 Glucose (Fingerstick) 348 mg/dL (70-99) 225 mg/dL (70-99) Laboratory Tests Test 10/26/20 09:21 10/26/20 10:11 10/26/20 12:25 10/26/20 16:25 White Blood Count 9.8 x10^3/uL (4.0-11.0) Red Blood Count 3.82 x10^6/uL (3.50-5.40) Hemoglobin 10.5 g/dL (12.0-15.5) Hematocrit 31.3 % (36.0-47.0) Mean Corpuscular Volume 82 fL (79-100) Mean Corpuscular Hemoglobin 28 pg (25-35) Mean Corpuscular Hemoglobin Concent 34 g/dL (31-37) Red Cell Distribution Width 15.8 % (11.5-14.5) Platelet Count 321 x10^3/uL (140-400) Neutrophils (%) (Auto) 62 % (31-73) Lymphocytes (%) (Auto) 21 % (24-48) Monocytes (%) (Auto) 12 % (0-9) Eosinophils (%) (Auto) 4 % (0-3) Basophils (%) (Auto) 1 % (0-3) Neutrophils # (Auto) 6.1 x10^3/uL (1.8-7.7) Lymphocytes # (Auto) 2.1 x10^3/uL (1.0-4.8) Monocytes # (Auto) 1.1 x10^3/uL (0.0-1.1) Eosinophils # (Auto) 0.4 x10^3/uL (0.0-0.7) Basophils # (Auto) 0.1 x10^3/uL (0.0-0.2) Sodium Level 133 mmol/L (136-145) Potassium Level 4.6 mmol/L (3.5-5.1) Chloride Level 98 mmol/L (98-107) Carbon Dioxide Level 19 mmol/L (21-32) Anion Gap 16 (6-14) Blood Urea Nitrogen 131 mg/dL (7-20) Creatinine 8.1 mg/dL (0.6-1.0) Estimated GFR (Cockcroft-Gault) 5.0 Glucose Level 202 mg/dL (70-99) Hemoglobin A1c 9.7 % (4.8-5.6) Lactic Acid Level 0.8 mmol/L (0.4-2.0) Calcium Level 8.8 mg/dL (8.5-10.1) Iron Level 90 ug/dL (50-170) Total Iron Binding Capacity 275 ug/dL (250-450) Iron Saturation 33 % (15-34) Total Bilirubin 0.5 mg/dL (0.2-1.0) Direct Bilirubin 0.1 mg/dL (0.0-0.2) Aspartate Amino Transf (AST/SGOT) 10 U/L (15-37) Alanine Aminotransferase (ALT/SGPT) 17 U/L (14-59) Alkaline Phosphatase 63 U/L (46-116) Troponin I Quantitative < 0.017 ng/mL (0.000-0.055) Total Protein 7.6 g/dL (6.4-8.2) Albumin 3.3 g/dL (3.4-5.0) Lipase 1543 U/L (73-393) Urine Collection Type Unknown Urine Color Yellow Urine Clarity Clear Urine pH 6.0 (<5.0-8.0) Urine Specific Rothschild 1.010 (1.000-1.030) Urine Protein 30 mg/dL (NEG-TRACE) Urine Glucose (UA) 250 mg/dL (NEG) Urine Ketones (Stick) Negative mg/dL (NEG) Urine Blood Small (NEG) Urine Nitrite Negative (NEG) Urine Bilirubin Negative (NEG) Urine Urobilinogen Dipstick 0.2 mg/dL (0.2 mg/dL) Urine Leukocyte Esterase Large (NEG) Urine RBC 3-5 /HPF (0-2) Urine WBC 20-40 /HPF (0-4) Urine Squamous Epithelial Cells Occ /LPF Urine Bacteria Few /HPF (0-FEW) Glucose (Fingerstick) 214 mg/dL (70-99) Urine Sodium 70 mmol/L (Not Estab.) Urine Potassium 20.9 mmol/L (Not Estab.) Urine Chloride 63 mmol/L (Not Estab.) Test 10/26/20 16:56 10/27/20 07:29 Glucose (Fingerstick) 348 mg/dL (70-99) 225 mg/dL (70-99) Medications Current Medications Sodium Chloride 1,000 ml @ 100 mls/hr 1X ONCE IV Last administered on 10/26/20at 11:28; Start 10/26/20 at 10:30; Stop 10/26/20 at 20:29; Status DC Ceftriaxone Sodium (Rocephin) 1 gm 1X ONCE IVP Last administered on 10/26/20at 11:28; Start 10/26/20 at 12:00; Stop 10/26/20 at 12:01; Status DC Pantoprazole Sodium (Protonix) 40 mg DAILYAC PO Last administered on 10/27/20at 05:30; Start 10/26/20 at 12:00 Polyethylene Glycol (miraLAX PACKET) 17 gm DAILY PO Last administered on 10/26/20at 12:15; Start 10/26/20 at 12:00 Bisacodyl (Dulcolax Tab) 5 mg PRN DAILY PRN PO CONSTIPATION; Start 10/26/20 at 12:00 Metoprolol Tartrate (Lopressor Vial) 5 mg PRN Q6HRS PRN IVP HYPERTENSION, 1ST CHOICE; Start 10/26/20 at 13:15; Stop 10/26/20 at 13:15; Status DC Labetalol HCl (Normodyne Iv Push) 20 mg PRN Q2HR PRN IVP HYPERTENSION; Start 10/26/20 at 13:15; Stop 10/26/20 at 13:20; Status DC Labetalol HCl (Normodyne Iv Push) 10 mg PRN Q2HR PRN IVP HYPERTENSION Last administered on 10/26/20at 13:27; Start 10/26/20 at 13:30 Insulin Human Lispro (HumaLOG) 0-9 UNITS TIDWMEALS SQ Last administered on 10/27/20at 08:19; Start 10/26/20 at 17:00 Dextrose (Dextrose 50%-Water Syringe) 12.5 gm PRN Q15MIN PRN IV SEE COMMENTS; Start 10/26/20 at 14:45; Stop 10/26/20 at 14:48; Status DC Sennosides (Senna) 17.2 mg PRN BID PRN PO CONSTIPATION; Start 10/26/20 at 14:45 Docusate Sodium (Colace) 100 mg PRN DAILY PRN PO HARD STOOLS; Start 10/26/20 at 14:45 Ondansetron HCl (Zofran) 4 mg PRN Q6HRS PRN IVP NAUSEA/VOMITING Last administered on 10/27/20at 08:13; Start 10/26/20 at 14:45 Dextrose (Dextrose 50%-Water Syringe) 12.5 gm PRN Q15MIN PRN IV SEE COMMENTS; Start 10/26/20 at 14:45 Acetaminophen (Tylenol) 650 mg PRN Q4HRS PRN PO TEMP OVER 100.4F OR MILD PAIN; Start 10/26/20 at 14:45 Sodium Chloride 1,000 ml @ 100 mls/hr Q10H IV Last administered on 10/27/20at 05:31; Start 10/26/20 at 17:30 Active Scripts Active Reported Aspir-Low (Aspirin) 81 Mg Tablet.dr 1 Tab PO DAILY Metformin Hcl Er (Metformin Hcl) 500 Mg Tab.er.24h 500 Mg PO BIDWMEALS Vitals/I & O Vital Sign - Last 24 Hours 1/27/21 1/27/21 1/27/21 1/27/21 09:48 10:18 10:48 11:30 Pulse 70 78 68 62 Resp 16 16 16 16 B/P (MAP) 196/91 (126) 183/75 (111) 193/91 (125) 187/90 (122) Pulse Ox 100 100 99 99 O2 Delivery Room Air Room Air 10/26/20 10/26/20 10/26/20 10/26/20 11:48 12:15 12:52 13:27 Temp 97.4 97.4 Pulse 64 72 72 Resp 16 18 B/P (MAP) 172/86 (114) 192/87 (122) 192/87 Pulse Ox 100 99 O2 Delivery Room Air Room Air Room Air 10/26/20 10/26/20 10/26/20 10/26/20 15:00 19:00 20:00 23:00 Temp 97.6 98.1 97.9 97.6 98.1 97.9 Pulse 65 66 66 Resp 18 22 18 B/P (MAP) 164/72 (102) 166/80 (108) 172/81 (111) Pulse Ox 99 99 98 O2 Delivery Room Air Room Air Room Air Room Air 10/27/20 10/27/20 03:00 07:00 Temp 98.1 97.9 98.1 97.9 Pulse 81 70 Resp 18 16 B/P (MAP) 167/79 (108) 178/85 (116) Pulse Ox 97 100 O2 Delivery Room Air Room Air Intake and Output 10/26/20 10/26/20 10/27/20 15:00 23:00 07:00 Intake Total 240 ml 240 ml Output Total 0 ml Balance 240 ml 240 ml Justicifation of Admission Dx: Justifications for Admission: Justification of Admission Dx: Yes CHF: Hemodynamic Instability Acute Renal Failure: RF Can't Be Managed Outpt Chronic Renal Failure: Renail Failure RANDAL ENRIQUE MD Oct 27, 2020 09:13
--- NOTE | 2020-10-27 09:52 | NUR ---
SW following. Discussed with RN, pt from home with , room air, renal diet. PT/OT ordered. GI following. SW will continue to follow.
--- NOTE | 2020-10-27 09:54 | PDOC ---
Date of Service: DATE: 10/27/20 TIME: 09:50 Subjective: Subjective: Feels better. Some nausea after eating a lot - no vomiting. Feels "pressure" in chest "like it might come up but doesn't" - says not heartburn/reflux. Stooled. Asks how long she'll be here. Feels less thirsty w/ IV fluids. Still no abdominal pain. Objective: Vital Signs: Vital Signs Date Time Temp Pulse Resp B/P (MAP) Pulse Ox O2 Delivery O2 Flow Rate FiO2 10/27/20 07:00 97.9 70 16 178/85 (116) 100 Room Air 97.9 Labs: Laboratory Tests Test 10/26/20 10:11 10/26/20 12:25 10/26/20 16:25 10/26/20 16:56 Urine Collection Type Unknown Urine Color Yellow Urine Clarity Clear Urine pH 6.0 Urine Specific Penrose 1.010 Urine Protein 30 mg/dL Urine Glucose (UA) 250 mg/dL Urine Ketones (Stick) Negative mg/dL Urine Blood Small Urine Nitrite Negative Urine Bilirubin Negative Urine Urobilinogen Dipstick 0.2 mg/dL Urine Leukocyte Esterase Large Urine RBC 3-5 /HPF Urine WBC 20-40 /HPF Urine Squamous Epithelial Cells Occ /LPF Urine Bacteria Few /HPF Glucose (Fingerstick) 214 mg/dL 348 mg/dL Urine Sodium 70 mmol/L Urine Potassium 20.9 mmol/L Urine Chloride 63 mmol/L Test 10/27/20 07:29 Glucose (Fingerstick) 225 mg/dL URINE CULTURE Final Final 40,000 CFU/ML Normal genitourinary maicol, not indicative of infection on 10/27/20 at 0936 PE: GEN: NAD LUNGS: CTAB HEART: RRR ABD: S/ND/NT NEURO/PSYCH: A & O 3 A/P: REESE Anemia - not iron deficient Nausea, chest "pressure" - ?GERD ?delayed gastric emptying DM - A1c 9 Elevated lipase - uncertain significance -- Continue per nephrology, primary. Continue PPI. Outpt scopes. Justicifation of Admission Dx: Justifications for Admission: Justification of Admission Dx: Yes KIRTI JIMENEZ Oct 27, 2020 09:54
[2020-10-27 11:00] VITALS: BP 153/69
[2020-10-27 11:53] LABS: BASO # 0.1 x10^3/uL (0.0-0.2); BASO % 1 % (0-3); EOS # 0.4 x10^3/uL (0.0-0.7); EOS % 5 % (0-3); HEMATOCRIT 28.9 % (36.0-47.0); HEMOGLOBIN 9.7 g/dL (12.0-15.5); LYMPH # 1.9 x10^3/uL (1.0-4.8); LYMPH % 23 % (24-48); MEAN CORPUSCULAR HEMOGLOBIN 28 pg (25-35); MEAN CORPUSCULAR HGB CONC 33 g/dL (31-37); MEAN CORPUSCULAR VOLUME 83 fL (79-100); MONO # 1.1 x10^3/uL (0.0-1.1); MONO % 13 % (0-9); NEUT # 4.9 x10^3/uL (1.8-7.7); NEUT % 59 % (31-73); PLATELET COUNT 268 x10^3/uL (140-400); RED CELL DISTRIBUTION WIDTH 15.8 % (11.5-14.5); WHITE BLOOD COUNT 8.3 x10^3/uL (4.0-11.0)
[2020-10-27 12:06] LABS: CALCIUM 8.6 mg/dL (8.5-10.1); CREATININE 7.6 mg/dL (0.6-1.0); GFR 5.4; MAGNESIUM 2.3 mg/dL (1.8-2.4); POTASSIUM 5.3 mmol/L (3.5-5.1)
--- NOTE | 2020-10-27 12:22 | PDOC2 ---
CONSULT Date of Consult Date of Consult DATE: 10/27/20 TIME: 12:10 Reason for Consult Reason for Consult: REESE Referring Physician Referring Physician: NIDIA Identification/Chief Complaint Chief Complaint N/V AND ABNORMAL LABS Source Source: Chart review, Patient History of Present Illness Reason for Visit: THIS IS A 60 YR OLD WITH COMPLAINTS OF DIZZINESS AND GENERALIZED WEAKNESS. A WEEK OR SO AGO HAD AN UTI WHICH WAS TREATED WITH CIPRO. ALSO HAD RIGHT FLANK PAIN. WAS TREATED WITH TRIGGER POINT INJECTION IN [place]. LABS SHOWED A CR OF ABOUT 8.0. SHE HAS ALSO HAD N/V FOR SEVERAL WEEKS. HAS CKD WITH BASELINE CR ABOUT 1.5-1.8. IN FEBRUARY 2019 HAD AND UTI AND IMAGING SHOWED LEFT SIDED CYSTIC MASS. THIS WAS FELT TO BE INFECTED AND SHE ALSO HAD MILD HYDRONEPHROSIS. AT THAT TIME SHE HAS A PCN PLACED AND THIS WAS LATER REMOVED BY UROLOGY AN OP. IMAGING HERE IS NOTABLE FOR NO ACUTE ABD/PELVIC FINDINGS. THE REPORTED CYST IS NO LONGER SEEN. THERE IS SOME LEFT RENAL ATROPHY HOWEVER. NO OTHER MORPHOLOGIC CHANGES NOTED. NO HX OF ANY STONES. NO URETERAL DILATIONS NOTED. UA NOTABLE FOR TRACE BLOOD AND PROTEIN AND WHAT APPEARS TO BE A PARTIALLY TREATED UTI. NO OTHER HX NOTED. SHE WAS VERY HYPERTENSIVE ON ADMIT. NO NEPHROTOXIC MEDS PRESCRIBED OR OTC NOTED Past Medical History Cardiovascular: CAD Pulmonary: Pneumonia, Other (H) Renal/: Chronic renal insuff, Other (HYRDONEPHROSIS LEFT SIDE IN 2019) Endocrine: Diabetes Past Surgical History Past Surgical History LEFT PCN Past Surgical History: No pertinent history Family History Family History: No Significant Social History Quit ALCOHOL: none Drugs: None Lives: with Family Current Problem List Problem List Problems Medical Problems: (1) Acute pancreatitis Status: Acute (2) ARF (acute renal failure) Status: Acute Current Medications Current Medications Current Medications Sodium Chloride 1,000 ml @ 100 mls/hr 1X ONCE IV Last administered on 10/26/20at 11:28; Start 10/26/20 at 10:30; Stop 10/26/20 at 20:29; Status DC Ceftriaxone Sodium (Rocephin) 1 gm 1X ONCE IVP Last administered on 10/26/20at 11:28; Start 10/26/20 at 12:00; Stop 10/26/20 at 12:01; Status DC Pantoprazole Sodium (Protonix) 40 mg DAILYAC PO Last administered on 10/27/20at 05:30; Start 10/26/20 at 12:00 Polyethylene Glycol (miraLAX PACKET) 17 gm DAILY PO Last administered on 10/26/20at 12:15; Start 10/26/20 at 12:00 Bisacodyl (Dulcolax Tab) 5 mg PRN DAILY PRN PO CONSTIPATION; Start 10/26/20 at 12:00 Metoprolol Tartrate (Lopressor Vial) 5 mg PRN Q6HRS PRN IVP HYPERTENSION, 1ST CHOICE; Start 10/26/20 at 13:15; Stop 10/26/20 at 13:15; Status DC Labetalol HCl (Normodyne Iv Push) 20 mg PRN Q2HR PRN IVP HYPERTENSION; Start 10/26/20 at 13:15; Stop 10/26/20 at 13:20; Status DC Labetalol HCl (Normodyne Iv Push) 10 mg PRN Q2HR PRN IVP HYPERTENSION Last administered on 10/26/20at 13:27; Start 10/26/20 at 13:30 Insulin Human Lispro (HumaLOG) 0-9 UNITS TIDWMEALS SQ Last administered on 10/27/20at 08:19; Start 10/26/20 at 17:00 Dextrose (Dextrose 50%-Water Syringe) 12.5 gm PRN Q15MIN PRN IV SEE COMMENTS; Start 10/26/20 at 14:45; Stop 10/26/20 at 14:48; Status DC Sennosides (Senna) 17.2 mg PRN BID PRN PO CONSTIPATION; Start 10/26/20 at 14:45 Docusate Sodium (Colace) 100 mg PRN DAILY PRN PO HARD STOOLS; Start 10/26/20 at 14:45 Ondansetron HCl (Zofran) 4 mg PRN Q6HRS PRN IVP NAUSEA/VOMITING Last administered on 10/27/20at 08:13; Start 10/26/20 at 14:45 Dextrose (Dextrose 50%-Water Syringe) 12.5 gm PRN Q15MIN PRN IV SEE COMMENTS; Start 10/26/20 at 14:45 Acetaminophen (Tylenol) 650 mg PRN Q4HRS PRN PO TEMP OVER 100.4F OR MILD PAIN; Start 10/26/20 at 14:45 Sodium Chloride 1,000 ml @ 100 mls/hr Q10H IV Last administered on 10/27/20at 05:31; Start 10/26/20 at 17:30 Active Scripts Active Reported Aspir-Low (Aspirin) 81 Mg Tablet.dr 1 Tab PO DAILY Metformin Hcl Er (Metformin Hcl) 500 Mg Tab.er.24h 500 Mg PO BIDWMEALS Allergies Allergies: Coded Allergies: No Known Drug Allergies (Unverified , 03/14/19) ROS General: YES: Fatigue, Malaise, Appetite Eyes: Yes Decreased vision HEENT: YES: Heacaches Respiratory: YES: Cough Gastrointestinal: Yes Nausea, Yes Vomiting Genitourinary: YES Dysuria Musculoskeletal: Yes Muscular Weakness Neurological: Yes Dizziness, Yes Weakness Skin: Yes Dry Skin Physical Exam General: Alert, Oriented X3, Cooperative, No acute distress HEENT: Atraumatic, PERRLA Lungs: Clear to auscultation Heart: Regular rate Abdomen: Normal bowel sounds, Soft, No tenderness Extremities: No clubbing Skin: No breakdown Neuro: Normal speech, Sensation intact Psych/Mental Status: Mental status NL, Mood NL MUSCULOSKELETAL: No joint tenderness, No deformity, No swelling Vitals VITALS Vital Signs Date Time Temp Pulse Resp B/P (MAP) Pulse Ox O2 Delivery O2 Flow Rate FiO2 10/27/20 07:00 97.9 70 16 178/85 (116) 100 Room Air 97.9 Labs Labs Laboratory Tests Test 10/26/20 09:21 10/26/20 10:11 10/26/20 12:25 10/26/20 16:25 White Blood Count 9.8 x10^3/uL (4.0-11.0) Red Blood Count 3.82 x10^6/uL (3.50-5.40) Hemoglobin 10.5 g/dL (12.0-15.5) Hematocrit 31.3 % (36.0-47.0) Mean Corpuscular Volume 82 fL (79-100) Mean Corpuscular Hemoglobin 28 pg (25-35) Mean Corpuscular Hemoglobin Concent 34 g/dL (31-37) Red Cell Distribution Width 15.8 % (11.5-14.5) Platelet Count 321 x10^3/uL (140-400) Neutrophils (%) (Auto) 62 % (31-73) Lymphocytes (%) (Auto) 21 % (24-48) Monocytes (%) (Auto) 12 % (0-9) Eosinophils (%) (Auto) 4 % (0-3) Basophils (%) (Auto) 1 % (0-3) Neutrophils # (Auto) 6.1 x10^3/uL (1.8-7.7) Lymphocytes # (Auto) 2.1 x10^3/uL (1.0-4.8) Monocytes # (Auto) 1.1 x10^3/uL (0.0-1.1) Eosinophils # (Auto) 0.4 x10^3/uL (0.0-0.7) Basophils # (Auto) 0.1 x10^3/uL (0.0-0.2) Sodium Level 133 mmol/L (136-145) Potassium Level 4.6 mmol/L (3.5-5.1) Chloride Level 98 mmol/L (98-107) Carbon Dioxide Level 19 mmol/L (21-32) Anion Gap 16 (6-14) Blood Urea Nitrogen 131 mg/dL (7-20) Creatinine 8.1 mg/dL (0.6-1.0) Estimated GFR (Cockcroft-Gault) 5.0 Glucose Level 202 mg/dL (70-99) Hemoglobin A1c 9.7 % (4.8-5.6) Lactic Acid Level 0.8 mmol/L (0.4-2.0) Calcium Level 8.8 mg/dL (8.5-10.1) Iron Level 90 ug/dL (50-170) Total Iron Binding Capacity 275 ug/dL (250-450) Iron Saturation 33 % (15-34) Total Bilirubin 0.5 mg/dL (0.2-1.0) Direct Bilirubin 0.1 mg/dL (0.0-0.2) Aspartate Amino Transf (AST/SGOT) 10 U/L (15-37) Alanine Aminotransferase (ALT/SGPT) 17 U/L (14-59) Alkaline Phosphatase 63 U/L (46-116) Troponin I Quantitative < 0.017 ng/mL (0.000-0.055) Total Protein 7.6 g/dL (6.4-8.2) Albumin 3.3 g/dL (3.4-5.0) Lipase 1543 U/L (73-393) Urine Collection Type Unknown Urine Color Yellow Urine Clarity Clear Urine pH 6.0 (<5.0-8.0) Urine Specific [place] 1.010 (1.000-1.030) Urine Protein 30 mg/dL (NEG-TRACE) Urine Glucose (UA) 250 mg/dL (NEG) Urine Ketones (Stick) Negative mg/dL (NEG) Urine Blood Small (NEG) Urine Nitrite Negative (NEG) Urine Bilirubin Negative (NEG) Urine Urobilinogen Dipstick 0.2 mg/dL (0.2 mg/dL) Urine Leukocyte Esterase Large (NEG) Urine RBC 3-5 /HPF (0-2) Urine WBC 20-40 /HPF (0-4) Urine Squamous Epithelial Cells Occ /LPF Urine Bacteria Few /HPF (0-FEW) Glucose (Fingerstick) 214 mg/dL (70-99) Urine Sodium 70 mmol/L (Not Estab.) Urine Potassium 20.9 mmol/L (Not Estab.) Urine Chloride 63 mmol/L (Not Estab.) Test 10/26/20 16:56 10/27/20 07:29 10/27/20 11:10 10/27/20 12:06 Glucose (Fingerstick) 348 mg/dL (70-99) 225 mg/dL (70-99) 269 mg/dL (70-99) White Blood Count 8.3 x10^3/uL (4.0-11.0) Red Blood Count 3.50 x10^6/uL (3.50-5.40) Hemoglobin 9.7 g/dL (12.0-15.5) Hematocrit 28.9 % (36.0-47.0) Mean Corpuscular Volume 83 fL (79-100) Mean Corpuscular Hemoglobin 28 pg (25-35) Mean Corpuscular Hemoglobin Concent 33 g/dL (31-37) Red Cell Distribution Width 15.8 % (11.5-14.5) Platelet Count 268 x10^3/uL (140-400) Neutrophils (%) (Auto) 59 % (31-73) Lymphocytes (%) (Auto) 23 % (24-48) Monocytes (%) (Auto) 13 % (0-9) Eosinophils (%) (Auto) 5 % (0-3) Basophils (%) (Auto) 1 % (0-3) Neutrophils # (Auto) 4.9 x10^3/uL (1.8-7.7) Lymphocytes # (Auto) 1.9 x10^3/uL (1.0-4.8) Monocytes # (Auto) 1.1 x10^3/uL (0.0-1.1) Eosinophils # (Auto) 0.4 x10^3/uL (0.0-0.7) Basophils # (Auto) 0.1 x10^3/uL (0.0-0.2) Sodium Level 135 mmol/L (136-145) Potassium Level 5.3 mmol/L (3.5-5.1) Chloride Level 101 mmol/L (98-107) Carbon Dioxide Level 19 mmol/L (21-32) Anion Gap 15 (6-14) Blood Urea Nitrogen 120 mg/dL (7-20) Creatinine 7.6 mg/dL (0.6-1.0) Estimated GFR (Cockcroft-Gault) 5.4 Glucose Level 282 mg/dL (70-99) Calcium Level 8.6 mg/dL (8.5-10.1) Magnesium Level 2.3 mg/dL (1.8-2.4) Laboratory Tests Test 10/26/20 12:25 10/26/20 16:25 10/26/20 16:56 10/27/20 07:29 Glucose (Fingerstick) 214 mg/dL (70-99) 348 mg/dL (70-99) 225 mg/dL (70-99) Urine Sodium 70 mmol/L (Not Estab.) Urine Potassium 20.9 mmol/L (Not Estab.) Urine Chloride 63 mmol/L (Not Estab.) Test 10/27/20 11:10 10/27/20 12:06 White Blood Count 8.3 x10^3/uL (4.0-11.0) Red Blood Count 3.50 x10^6/uL (3.50-5.40) Hemoglobin 9.7 g/dL (12.0-15.5) Hematocrit 28.9 % (36.0-47.0) Mean Corpuscular Volume 83 fL (79-100) Mean Corpuscular Hemoglobin 28 pg (25-35) Mean Corpuscular Hemoglobin Concent 33 g/dL (31-37) Red Cell Distribution Width 15.8 % (11.5-14.5) Platelet Count 268 x10^3/uL (140-400) Neutrophils (%) (Auto) 59 % (31-73) Lymphocytes (%) (Auto) 23 % (24-48) Monocytes (%) (Auto) 13 % (0-9) Eosinophils (%) (Auto) 5 % (0-3) Basophils (%) (Auto) 1 % (0-3) Neutrophils # (Auto) 4.9 x10^3/uL (1.8-7.7) Lymphocytes # (Auto) 1.9 x10^3/uL (1.0-4.8) Monocytes # (Auto) 1.1 x10^3/uL (0.0-1.1) Eosinophils # (Auto) 0.4 x10^3/uL (0.0-0.7) Basophils # (Auto) 0.1 x10^3/uL (0.0-0.2) Sodium Level 135 mmol/L (136-145) Potassium Level 5.3 mmol/L (3.5-5.1) Chloride Level 101 mmol/L (98-107) Carbon Dioxide Level 19 mmol/L (21-32) Anion Gap 15 (6-14) Blood Urea Nitrogen 120 mg/dL (7-20) Creatinine 7.6 mg/dL (0.6-1.0) Estimated GFR (Cockcroft-Gault) 5.4 Glucose Level 282 mg/dL (70-99) Calcium Level 8.6 mg/dL (8.5-10.1) Magnesium Level 2.3 mg/dL (1.8-2.4) Glucose (Fingerstick) 269 mg/dL (70-99) Images Images Exam performed: CT scan of the abdomen and pelvis without contrast. Clinical Indication: Right flank pain. Date of Service: 10/26/2020 comparison: CT abdomen and pelvis without contrast from 10/18/2019 and priors Technique: Contiguous helical acquisitions are obtained through the abdomen and pelvis without IV contrast. Sagittal and coronal reformatted images are obtained and reviewed. CT abdomen and pelvis findings: Small pleural-based soft tissue density linear opacity in the anterior left lower lobe is seen and is stable since prior CT chest from 2019 and is chronic. The right lung base is clear. Visualized heart is normal Lack of IV contrast limits evaluation of abdominal viscera, however the liver spleen and pancreas are normal. Cholelithiasis Both adrenal glands are symmetric. Interval resolution of previously seen left hydroureteronephrosis with mild left renal atrophy. No hydronephrosis or nephrolithiasis is seen. Aorta is normal in caliber without aneurysm. The small and large bowel loops are nondilated and unremarkable. The visualized portion of the appendix is unremarkable. No inflammatory changes are seen in the right lower quadrant Distal ureters are nondilated. Urinary bladder is decompressed and thick walled. [Uterus is anteverted. No adnexal masses seen. Mild sigmoid diverticulosis.] No free or focal fluid collections are identified. Impression: 1. No acute intra-abdominal or pelvic process detected. 2. Cholelithiasis. 3. Sigmoid diverticulosis without acute diverticulitis. Assessment/Plan Assessment/Plan IMP REESE-ATN HYPONATREMIA HYPERKALEMIA UREMIA EXTRACELLULAR VOLUME DEPLETION ANEMIA OF CKD ELEVATED LIPASE-PROB DUE TO REESE UNCONTROLLED HTN DM II UTI PLAN HYDRATION AVOID NEPHROTOXINS ANTIBIOTICS CONTROL BP IMAGING DONE NOTED ABOVE RENAL BX IF CLEARANCE NOT IMPROVED WILL FOLLOW D/W MEI PEREZ MD Oct 27, 2020 12:22
[2020-10-27] MEDS: cefTRIAXone IV Push 1 GM VIAL. IVP SCH (12:38)
[2020-10-27 15:00] VITALS: BP 155/72
[2020-10-27] MEDS ORDERED: LABETALOL 20 MG/4 ML DISP.SYRIN. IVP PRN (16:30)
--- NOTE | 2020-10-27 16:52 | PDOC2 ---
CARDIAC CONSULT DATE OF CONSULT Date of Consult DATE: 10/27/20 TIME: 16:23 REASON FOR CONSULT Reason for Consult: HTN, hx of RI REFERRING PHYSICIAN Referring Physician: Fullbright SOURCE Source: Chart review, Patient HISTORY OF PRESENT ILLNESS HISTORY OF PRESENT ILLNESS This is a pleasant 60 yo Nepalese female admitted for abnormal renal labs. Also has been having lower back pain and under shoulder blade which she was told probably from muscle. Denies any chest pain or SOA nor palpitations. No recent falls or injury. She was told to come in due to renal failure according to her labs. She was noted with RI in 2019 and had a stress test at that time which showed mixed defect and with cardiomyopathy. Her medications were optimizad at that time time but failed to follow up in our office after a cancelled appointme nt. She has not been hospitalized in 2019. She only takes ASA and metformin. She does take aleve PRN but not daily. She has been vomiting in the last 5 days but none today. No prior Covid-19 exposure. Denies any ageusia, anosmia. Negative for significant peripheral edema, anasarca. No orthopnea nor PND. Again she has not seen by any product analyst since she was seen in her hospitalization in 2019. PAST MEDICAL HISTORY Cardiovascular: CAD, CHF, HTN, RI, Other (cardiomyipathy) Pulmonary: Pneumonia CENTRAL NERVOUS SYSTEM: Other (No pertinent history) GI: Diverticulosis, GERD Heme/Onc: Anemia NOS Hepatobiliary: Cholelithiasis Psych: No pertinent hx Musculoskeletal: Osteoarthritis Rheumatologic: No pertinent hx Infectious disease: No pertinent hx ENT: No pertinent hx Renal/: Chronic renal insuff, UTI, Other (renal cyst) Endocrine: Diabetes PAST SURGICAL HISTORY Past Surgical History: Other (nephrostomy tube) FAMILY HISTORY Family History noncontributory to CV SOCIAL HISTORY Smoke: No ALCOHOL: none Drugs: None Lives: with Family ( ) CURRENT MEDICATIONS CURRENT MEDICATIONS Current Medications Medications (Trade) Dose Ordered Sig/Nilesh Route PRN Reason Start Time Stop Time Status Last Admin Dose Admin Insulin Human Lispro (HumaLOG) 0-9 UNITS TIDWMEALS SQ 10/26/20 17:00 10/27/20 12:18 Sodium Chloride 1,000 ml @ 100 mls/hr Q10H IV 10/26/20 17:30 10/27/20 15:24 Amlodipine Besylate (Norvasc) 5 mg DAILY PO 1/28/21 13:00 10/27/20 12:38 Ceftriaxone Sodium (Rocephin) 1 gm Q24H IVP 10/27/20 13:00 10/27/20 12:38 ALLERGIES ALLERGIES: Coded Allergies: No Known Drug Allergies (Unverified , 03/14/19) ROS Review of System 14 point ROS evaluated with pertinent positives noted per HPI PHYSICAL EXAM General: Alert, Oriented X3, Cooperative, No acute distress HEENT: Atraumatic, Mucous membr. moist/pink Lungs: Clear to auscultation, Normal air movement Heart: Regular rate (SR), Normal S1, Normal S2, No murmurs Abdomen: Soft, No tenderness Extremities: No cyanosis, No edema Skin: No breakdown, No significant lesion Neuro: Normal speech, Sensation intact Psych/Mental Status: Mental status NL, Mood NL MUSCULOSKELETAL: Osteoarthritic changes both hands VITALS/I&O VITALS/I&O: Vital Signs Date Time Temp Pulse Resp B/P (MAP) Pulse Ox O2 Delivery O2 Flow Rate FiO2 10/27/20 15:00 97.6 72 16 155/72 (99) 98 Room Air 97.6 I & O 10/26/20 10/26/20 10/27/20 15:00 23:00 07:00 Intake Total 240 ml 240 ml Output Total 0 ml Balance 240 ml 240 ml LABS Lab: Laboratory Tests Test 10/26/20 16:25 10/26/20 16:56 10/27/20 07:29 10/27/20 11:10 Urine Sodium 70 mmol/L (Not Estab.) Urine Potassium 20.9 mmol/L (Not Estab.) Urine Chloride 63 mmol/L (Not Estab.) Glucose (Fingerstick) 348 mg/dL (70-99) H 225 mg/dL (70-99) H White Blood Count 8.3 x10^3/uL (4.0-11.0) Red Blood Count 3.50 x10^6/uL (3.50-5.40) Hemoglobin 9.7 g/dL (12.0-15.5) L Hematocrit 28.9 % (36.0-47.0) L Mean Corpuscular Volume 83 fL (79-100) Mean Corpuscular Hemoglobin 28 pg (25-35) Mean Corpuscular Hemoglobin Concent 33 g/dL (31-37) Red Cell Distribution Width 15.8 % (11.5-14.5) H Platelet Count 268 x10^3/uL (140-400) Neutrophils (%) (Auto) 59 % (31-73) Lymphocytes (%) (Auto) 23 % (24-48) L Monocytes (%) (Auto) 13 % (0-9) H Eosinophils (%) (Auto) 5 % (0-3) H Basophils (%) (Auto) 1 % (0-3) Neutrophils # (Auto) 4.9 x10^3/uL (1.8-7.7) Lymphocytes # (Auto) 1.9 x10^3/uL (1.0-4.8) Monocytes # (Auto) 1.1 x10^3/uL (0.0-1.1) Eosinophils # (Auto) 0.4 x10^3/uL (0.0-0.7) Basophils # (Auto) 0.1 x10^3/uL (0.0-0.2) Sodium Level 135 mmol/L (136-145) L Potassium Level 5.3 mmol/L (3.5-5.1) H Chloride Level 101 mmol/L (98-107) Carbon Dioxide Level 19 mmol/L (21-32) L Anion Gap 15 (6-14) H Blood Urea Nitrogen 120 mg/dL (7-20) H Creatinine 7.6 mg/dL (0.6-1.0) H Estimated GFR (Cockcroft-Gault) 5.4 Glucose Level 282 mg/dL (70-99) H Calcium Level 8.6 mg/dL (8.5-10.1) Phosphorus Level 6.8 mg/dL (2.6-4.7) H Magnesium Level 2.3 mg/dL (1.8-2.4) Test 10/27/20 12:06 Glucose (Fingerstick) 269 mg/dL (70-99) H Laboratory Tests 10/27/20 11:10 Laboratory Tests 10/27/20 11:10 ECHOCARDIOGRAM ECHOCARDIOGRAM <Conclusion> The left ventricle is normal size. The ejection fraction is moderately impaired. The Ejection Fraction is estimated at 35-40%. There is hypokinesis in the anterior septal region. There is no significant aortic valvular stenosis. Doppler and Color Flow revealed no significant aortic regurgitation. Doppler and Color Flow revealed trace mitral valve regurgitation. Doppler and Color Flow revealed trace tricuspid valve regurgitation. DATE: 03/15/19 1421 STRESS TEST STRESS TEST Conclusion 1. Regadenoson cardioisotope stress test showed mixed perfusion defect involving the mid to distal anterior and anterolateral avalos consistent with small infarct and moderate amount of ischemia. 2. Mid to distal anterior wall hypokinesis with ejection fraction calculated at 50%. 3. Intermediate risk for cardiac events. DATE: 03/18/19 1255 ASSESSMENT/PLAN ASSESSMENT/PLAN 1. Severe REESE/uremia with mild hyperkalemia 2. abdominal/Flank pain with UTI: noted hx of renal cysts, nephrostomy tube placement 3. HTN urgency: labile 4. CAD: noted mixed defect from prior MPI. No known PCIs 5. DM2: uncontrolled A1C 9.5 per PCP 6. Chronic diastolic/systolic CHF: appears compensated 7. ICM: past EF at 35-40% Recommendations 1. IVF per nephrology DC metformin. NO ACEi/ARB, discussed stopping home NSAIDs completely. Antbiotics per PCP 2. Baby ASA. Start on coreg. Labetolol IV PRN 3. Check lipids and TTE tomorrow. IF hydrate with caution. Discussed CHF symptoms. 4. Failed appointment in our clinic, discussed adherence. 5. Supportive care. JOSEFINA COOPER APRN Oct 27, 2020 16:52
[2020-10-27] MEDS: CARVEDILOL 6.25 MG TABLET. PO SCH (17:18)
[2020-10-27] MEDS: ASPIRIN ENTERIC COATED 81 MG TABLET.DR. PO SCH (17:18)
[2020-10-27 19:00] VITALS: BP 157/80
[2020-10-27] MEDS: LACTOBACILLUS RHAMNOSUS GG 1 CAPSULE. PO SCH (21:30)
[2020-10-27 23:00] VITALS: BP 161/62
[2020-10-28 02:50] VITALS: BP 159/65
[2020-10-28] MEDS: PANTOPRAZOLE 40 MG TABLET.DR. PO SCH (05:31)
[2020-10-28 07:00] VITALS: BP 159/78
[2020-10-28] MEDS: INSULIN LISPRO 300 UNITS/3 ML VIAL. SQ SCH ×3 (08:15→17:39)
--- NOTE | 2020-10-28 08:46 | PDOC ---
PROGRESS NOTES Date of Service: DATE: 10/28/20 TIME: 08:46 Chief Complaint Chief Complaint Impression: 1. No acute intra-abdominal or pelvic process detected. 2. Cholelithiasis. 3. Sigmoid diverticulosis without acute diverticulitis. impression Assessment/Plan Acute hypertensive emergency Acute renal failure remote history of a cyst drainage percutaneously done in February 2019. had a nephrostomy tube that was placed but that was removed by urology around that time. hyponatremia hyperkalemia Normocytic anemia Elevated lipase Cholelithiasis. diabetes stress test showed mixed perfusion defect involving the mid to distal anterior and anterolateral avalos consistent with small infarct and moderate amount of ischemia. 2018 Mid to distal anterior wall hypokinesis with ejection fraction calculated at 50%. plan Admit to medicine for further management Continue IV fluids Strict I's and O's Nephrology consult R ISS and Accu-Cheks IV labetalol as needed for systolic blood pressure goals less than 180 Heparin for DVT prophylaxis ADA diet Full code Discussed with RN and SW Disposition inpatient management Surrogate decision maker is the consider renal bx if cr not improved cardiology consult 27 min pt exam, chart review, > 50% of time spent with exam, chart review, pt care coordination Justifications for Admission Justifications for Admission Other Justification History of Present Illness History of Present Illness Chief Complaint: Chief Complain: dizziness and weakness History of Present Illness: HPI: Patient is a 60-year-old female with past medical history of diabetes mellitus type 2 who comes in with complaints of dizziness and weakness in her lower extremities. She also had some right-sided flank pain in which she had a injection trigger point last week and said that her pain improved slightly with that. However, she has been dealing with this dizziness for the past couple of weeks. Patient denies any fevers, chills, rashes, chest pain or shortness of breath or abdominal pain or dysuria. Patient does have a history of diabetes which she takes Metformin as she said that she takes other medications in which she said that she does not feel good taking them. Patient did have some outpatient lab work done at that is why she came because they stated that she had some renal failure. Patient does also have a remote history of a cyst drainage percutaneously done in February 2019. She also had a nephrostomy tube that was placed but that was removed by urology around that time. Denies kidney stones, dysuria, hematuria or incontinence or frequency. Of note, patient was recently admitted to the hospital for treatment for pneumonia and she was taking Levaquin at that time. Past Medical/Surgical History: PMH/PSH: Past Medical History: Diabetes-Type II, DECREASED L KIDNEY FUNCTION Past Surgical History: cyst on L kidney status post drainage in 2018 Allergies: Allergies: Coded Allergies: No Known Drug Allergies (Unverified , 03/14/19) Family History: Family History: Reviewed with no relevant findings Social History: Social History: Smoking Status: Former Smoker Alcohol Use: None Vitals Vitals Vital Signs Date Time Temp Pulse Resp B/P (MAP) Pulse Ox O2 Delivery O2 Flow Rate FiO2 10/28/20 07:00 97.9 66 18 159/78 (105) 98 Room Air 97.9 Physical Exam Physical Exam GEN: No apparent distress. Alert and oriented HEENT: Normal cephalic, atraumatic, external auditory canals are patent EYES: Extraocular muscles are intact, pupil are equally round and reactive to light and accommodation MUSCULOSKELETAL: Well developed , well nourished, good range of motion ENDOCRINE: No thyromegaly was palpated LYMPHATICS: No cervical chain or axillary nodes were noted HEMATOPOIETIC: No bruising NECK: Supple, no JVD, no thyromegaly was noted LUNGS: Clear to auscultation in all lung guerrero without rhonchi or wheezing HEART: RRR, S!, S2 present. Peripheral pulses intact, no obvious murmurs noted ABDOMEN: Soft, nontender. Positive bowel sounds, no organomegaly, normal bowel sounds EXTREMITIES: Without clubbing, cyanosis, or edema. Pedal pulses intact. Negative Homans sign NEUROLOGIC: Normal speech and tone. A&O x 3, moves all extremities, no obvious focal deficits PSYCHIATRIC: Normal affect, normal mood. Stable SKIN: No ulcerations or rashes, good skin turgor, no jaundice VASCULAR: Good capillary refill, neurovascular bundle appears to be intact General: Alert, Oriented X3, Cooperative, No acute distress Heart: Regular rate (SR), Normal S1, Normal S2, No murmurs Abdomen: Soft, No tenderness Extremities: No cyanosis, No edema Skin: No breakdown, No significant lesion Labs LABS Laboratory Tests Test 10/27/20 11:10 10/27/20 12:06 10/27/20 17:02 10/27/20 21:40 White Blood Count 8.3 x10^3/uL (4.0-11.0) Red Blood Count 3.50 x10^6/uL (3.50-5.40) Hemoglobin 9.7 g/dL (12.0-15.5) Hematocrit 28.9 % (36.0-47.0) Mean Corpuscular Volume 83 fL (79-100) Mean Corpuscular Hemoglobin 28 pg (25-35) Mean Corpuscular Hemoglobin Concent 33 g/dL (31-37) Red Cell Distribution Width 15.8 % (11.5-14.5) Platelet Count 268 x10^3/uL (140-400) Neutrophils (%) (Auto) 59 % (31-73) Lymphocytes (%) (Auto) 23 % (24-48) Monocytes (%) (Auto) 13 % (0-9) Eosinophils (%) (Auto) 5 % (0-3) Basophils (%) (Auto) 1 % (0-3) Neutrophils # (Auto) 4.9 x10^3/uL (1.8-7.7) Lymphocytes # (Auto) 1.9 x10^3/uL (1.0-4.8) Monocytes # (Auto) 1.1 x10^3/uL (0.0-1.1) Eosinophils # (Auto) 0.4 x10^3/uL (0.0-0.7) Basophils # (Auto) 0.1 x10^3/uL (0.0-0.2) Sodium Level 135 mmol/L (136-145) Potassium Level 5.3 mmol/L (3.5-5.1) Chloride Level 101 mmol/L (98-107) Carbon Dioxide Level 19 mmol/L (21-32) Anion Gap 15 (6-14) Blood Urea Nitrogen 120 mg/dL (7-20) Creatinine 7.6 mg/dL (0.6-1.0) Estimated GFR (Cockcroft-Gault) 5.4 Glucose Level 282 mg/dL (70-99) Calcium Level 8.6 mg/dL (8.5-10.1) Phosphorus Level 6.8 mg/dL (2.6-4.7) Magnesium Level 2.3 mg/dL (1.8-2.4) Glucose (Fingerstick) 269 mg/dL (70-99) 115 mg/dL (70-99) 206 mg/dL (70-99) Test 10/28/20 07:22 Glucose (Fingerstick) 166 mg/dL (70-99) Assessment and Plan Assessmemt and Plan Problems Medical Problems: (1) Acute pancreatitis Status: Acute (2) ARF (acute renal failure) Status: Acute Comment Review of Relevant I have reviewed the following items misha (where applicable) has been applied. Labs Laboratory Tests Test 10/26/20 09:21 10/26/20 10:11 10/26/20 12:25 10/26/20 16:25 White Blood Count 9.8 x10^3/uL (4.0-11.0) Red Blood Count 3.82 x10^6/uL (3.50-5.40) Hemoglobin 10.5 g/dL (12.0-15.5) Hematocrit 31.3 % (36.0-47.0) Mean Corpuscular Volume 82 fL (79-100) Mean Corpuscular Hemoglobin 28 pg (25-35) Mean Corpuscular Hemoglobin Concent 34 g/dL (31-37) Red Cell Distribution Width 15.8 % (11.5-14.5) Platelet Count 321 x10^3/uL (140-400) Neutrophils (%) (Auto) 62 % (31-73) Lymphocytes (%) (Auto) 21 % (24-48) Monocytes (%) (Auto) 12 % (0-9) Eosinophils (%) (Auto) 4 % (0-3) Basophils (%) (Auto) 1 % (0-3) Neutrophils # (Auto) 6.1 x10^3/uL (1.8-7.7) Lymphocytes # (Auto) 2.1 x10^3/uL (1.0-4.8) Monocytes # (Auto) 1.1 x10^3/uL (0.0-1.1) Eosinophils # (Auto) 0.4 x10^3/uL (0.0-0.7) Basophils # (Auto) 0.1 x10^3/uL (0.0-0.2) Sodium Level 133 mmol/L (136-145) Potassium Level 4.6 mmol/L (3.5-5.1) Chloride Level 98 mmol/L (98-107) Carbon Dioxide Level 19 mmol/L (21-32) Anion Gap 16 (6-14) Blood Urea Nitrogen 131 mg/dL (7-20) Creatinine 8.1 mg/dL (0.6-1.0) Estimated GFR (Cockcroft-Gault) 5.0 Glucose Level 202 mg/dL (70-99) Hemoglobin A1c 9.7 % (4.8-5.6) Lactic Acid Level 0.8 mmol/L (0.4-2.0) Calcium Level 8.8 mg/dL (8.5-10.1) Iron Level 90 ug/dL (50-170) Total Iron Binding Capacity 275 ug/dL (250-450) Iron Saturation 33 % (15-34) Total Bilirubin 0.5 mg/dL (0.2-1.0) Direct Bilirubin 0.1 mg/dL (0.0-0.2) Aspartate Amino Transf (AST/SGOT) 10 U/L (15-37) Alanine Aminotransferase (ALT/SGPT) 17 U/L (14-59) Alkaline Phosphatase 63 U/L (46-116) Troponin I Quantitative < 0.017 ng/mL (0.000-0.055) Total Protein 7.6 g/dL (6.4-8.2) Albumin 3.3 g/dL (3.4-5.0) Lipase 1543 U/L (73-393) Urine Collection Type Unknown Urine Color Yellow Urine Clarity Clear Urine pH 6.0 (<5.0-8.0) Urine Specific Salters 1.010 (1.000-1.030) Urine Protein 30 mg/dL (NEG-TRACE) Urine Glucose (UA) 250 mg/dL (NEG) Urine Ketones (Stick) Negative mg/dL (NEG) Urine Blood Small (NEG) Urine Nitrite Negative (NEG) Urine Bilirubin Negative (NEG) Urine Urobilinogen Dipstick 0.2 mg/dL (0.2 mg/dL) Urine Leukocyte Esterase Large (NEG) Urine RBC 3-5 /HPF (0-2) Urine WBC 20-40 /HPF (0-4) Urine Squamous Epithelial Cells Occ /LPF Urine Bacteria Few /HPF (0-FEW) Glucose (Fingerstick) 214 mg/dL (70-99) Urine Sodium 70 mmol/L (Not Estab.) Urine Potassium 20.9 mmol/L (Not Estab.) Urine Chloride 63 mmol/L (Not Estab.) Test 10/26/20 16:56 10/27/20 07:29 10/27/20 11:10 10/27/20 12:06 Glucose (Fingerstick) 348 mg/dL (70-99) 225 mg/dL (70-99) 269 mg/dL (70-99) White Blood Count 8.3 x10^3/uL (4.0-11.0) Red Blood Count 3.50 x10^6/uL (3.50-5.40) Hemoglobin 9.7 g/dL (12.0-15.5) Hematocrit 28.9 % (36.0-47.0) Mean Corpuscular Volume 83 fL (79-100) Mean Corpuscular Hemoglobin 28 pg (25-35) Mean Corpuscular Hemoglobin Concent 33 g/dL (31-37) Red Cell Distribution Width 15.8 % (11.5-14.5) Platelet Count 268 x10^3/uL (140-400) Neutrophils (%) (Auto) 59 % (31-73) Lymphocytes (%) (Auto) 23 % (24-48) Monocytes (%) (Auto) 13 % (0-9) Eosinophils (%) (Auto) 5 % (0-3) Basophils (%) (Auto) 1 % (0-3) Neutrophils # (Auto) 4.9 x10^3/uL (1.8-7.7) Lymphocytes # (Auto) 1.9 x10^3/uL (1.0-4.8) Monocytes # (Auto) 1.1 x10^3/uL (0.0-1.1) Eosinophils # (Auto) 0.4 x10^3/uL (0.0-0.7) Basophils # (Auto) 0.1 x10^3/uL (0.0-0.2) Sodium Level 135 mmol/L (136-145) Potassium Level 5.3 mmol/L (3.5-5.1) Chloride Level 101 mmol/L (98-107) Carbon Dioxide Level 19 mmol/L (21-32) Anion Gap 15 (6-14) Blood Urea Nitrogen 120 mg/dL (7-20) Creatinine 7.6 mg/dL (0.6-1.0) Estimated GFR (Cockcroft-Gault) 5.4 Glucose Level 282 mg/dL (70-99) Calcium Level 8.6 mg/dL (8.5-10.1) Phosphorus Level 6.8 mg/dL (2.6-4.7) Magnesium Level 2.3 mg/dL (1.8-2.4) Test 10/27/20 17:02 10/27/20 21:40 10/28/20 07:22 Glucose (Fingerstick) 115 mg/dL (70-99) 206 mg/dL (70-99) 166 mg/dL (70-99) Laboratory Tests Test 10/27/20 11:10 10/27/20 12:06 10/27/20 17:02 10/27/20 21:40 White Blood Count 8.3 x10^3/uL (4.0-11.0) Red Blood Count 3.50 x10^6/uL (3.50-5.40) Hemoglobin 9.7 g/dL (12.0-15.5) Hematocrit 28.9 % (36.0-47.0) Mean Corpuscular Volume 83 fL (79-100) Mean Corpuscular Hemoglobin 28 pg (25-35) Mean Corpuscular Hemoglobin Concent 33 g/dL (31-37) Red Cell Distribution Width 15.8 % (11.5-14.5) Platelet Count 268 x10^3/uL (140-400) Neutrophils (%) (Auto) 59 % (31-73) Lymphocytes (%) (Auto) 23 % (24-48) Monocytes (%) (Auto) 13 % (0-9) Eosinophils (%) (Auto) 5 % (0-3) Basophils (%) (Auto) 1 % (0-3) Neutrophils # (Auto) 4.9 x10^3/uL (1.8-7.7) Lymphocytes # (Auto) 1.9 x10^3/uL (1.0-4.8) Monocytes # (Auto) 1.1 x10^3/uL (0.0-1.1) Eosinophils # (Auto) 0.4 x10^3/uL (0.0-0.7) Basophils # (Auto) 0.1 x10^3/uL (0.0-0.2) Sodium Level 135 mmol/L (136-145) Potassium Level 5.3 mmol/L (3.5-5.1) Chloride Level 101 mmol/L (98-107) Carbon Dioxide Level 19 mmol/L (21-32) Anion Gap 15 (6-14) Blood Urea Nitrogen 120 mg/dL (7-20) Creatinine 7.6 mg/dL (0.6-1.0) Estimated GFR (Cockcroft-Gault) 5.4 Glucose Level 282 mg/dL (70-99) Calcium Level 8.6 mg/dL (8.5-10.1) Phosphorus Level 6.8 mg/dL (2.6-4.7) Magnesium Level 2.3 mg/dL (1.8-2.4) Glucose (Fingerstick) 269 mg/dL (70-99) 115 mg/dL (70-99) 206 mg/dL (70-99) Test 10/28/20 07:22 Glucose (Fingerstick) 166 mg/dL (70-99) Microbiology 10/26/20 Blood Culture - Preliminary, Resulted NO GROWTH AFTER 1 DAY 10/26/20 Urine Culture - Final, Complete Medications Current Medications Sodium Chloride 1,000 ml @ 100 mls/hr 1X ONCE IV Last administered on 10/26/20at 11:28; Start 10/26/20 at 10:30; Stop 10/26/20 at 20:29; Status DC Ceftriaxone Sodium (Rocephin) 1 gm 1X ONCE IVP Last administered on 10/26/20at 11:28; Start 10/26/20 at 12:00; Stop 10/26/20 at 12:01; Status DC Pantoprazole Sodium (Protonix) 40 mg DAILYAC PO Last administered on 10/28/20at 05:31; Start 10/26/20 at 12:00 Polyethylene Glycol (miraLAX PACKET) 17 gm DAILY PO Last administered on 10/26/20at 12:15; Start 10/26/20 at 12:00 Bisacodyl (Dulcolax Tab) 5 mg PRN DAILY PRN PO CONSTIPATION; Start 10/26/20 at 12:00 Metoprolol Tartrate (Lopressor Vial) 5 mg PRN Q6HRS PRN IVP HYPERTENSION, 1ST CHOICE; Start 10/26/20 at 13:15; Stop 10/26/20 at 13:15; Status DC Labetalol HCl (Normodyne Iv Push) 20 mg PRN Q2HR PRN IVP HYPERTENSION; Start 10/26/20 at 13:15; Stop 10/26/20 at 13:20; Status DC Labetalol HCl (Normodyne Iv Push) 10 mg PRN Q2HR PRN IVP HYPERTENSION Last administered on 10/26/20at 13:27; Start 10/26/20 at 13:30 Insulin Human Lispro (HumaLOG) 0-9 UNITS TIDWMEALS SQ Last administered on 10/28/20at 08:15; Start 10/26/20 at 17:00 Dextrose (Dextrose 50%-Water Syringe) 12.5 gm PRN Q15MIN PRN IV SEE COMMENTS; Start 10/26/20 at 14:45; Stop 10/26/20 at 14:48; Status DC Sennosides (Senna) 17.2 mg PRN BID PRN PO CONSTIPATION; Start 10/26/20 at 14:45 Docusate Sodium (Colace) 100 mg PRN DAILY PRN PO HARD STOOLS; Start 10/26/20 at 14:45 Ondansetron HCl (Zofran) 4 mg PRN Q6HRS PRN IVP NAUSEA/VOMITING Last administered on 10/27/20at 08:13; Start 10/26/20 at 14:45 Dextrose (Dextrose 50%-Water Syringe) 12.5 gm PRN Q15MIN PRN IV SEE COMMENTS; Start 10/26/20 at 14:45 Acetaminophen (Tylenol) 650 mg PRN Q4HRS PRN PO TEMP OVER 100.4F OR MILD PAIN; Start 10/26/20 at 14:45 Sodium Chloride 1,000 ml @ 100 mls/hr Q10H IV Last administered on 10/27/20at 23:44; Start 10/26/20 at 17:30 Amlodipine Besylate (Norvasc) 5 mg DAILY PO Last administered on 10/27/20at 12:38; Start 10/27/20 at 13:00 Ceftriaxone Sodium (Rocephin) 1 gm Q24H IVP Last administered on 10/27/20at 12:38; Start 10/27/20 at 13:00 Lactobacillus Rhamnosus (Culturelle) 1 cap BID PO Last administered on 10/27/20at 21:30; Start 10/27/20 at 21:00 Aspirin (Ecotrin) 81 mg DAILYWBKFT PO Last administered on 10/27/20at 17:18; Start 10/27/20 at 17:00 Carvedilol (Coreg) 6.25 mg BIDWMEALS PO Last administered on 10/27/20at 17:18; Start 10/27/20 at 17:00 Labetalol HCl (Normodyne Iv Push) 20 mg PRN Q2HR PRN IVP HYPERTENSION; Start 10/27/20 at 16:30 Active Scripts Active Reported Aspir-Low (Aspirin) 81 Mg Tablet.dr 1 Tab PO DAILY Metformin Hcl Er (Metformin Hcl) 500 Mg Tab.er.24h 500 Mg PO BIDWMEALS Vitals/I & O Vital Sign - Last 24 Hours 10/27/20 10/27/20 10/27/20 10/27/20 11:00 12:38 15:00 17:18 Temp 98.0 97.6 98.0 97.6 Pulse 65 65 72 72 Resp 16 16 B/P (MAP) 153/69 (97) 153/69 155/72 (99) 155/72 Pulse Ox 97 98 O2 Delivery Room Air Room Air 10/27/20 10/27/20 10/27/20 10/28/20 19:00 20:00 23:00 02:50 Temp 97.5 98.0 97.7 97.5 98.0 97.7 Pulse 71 70 72 Resp 18 18 18 B/P (MAP) 157/80 (105) 161/62 (95) 159/65 (96) Pulse Ox 97 98 96 O2 Delivery Room Air Room Air Room Air Room Air 10/28/20 07:00 Temp 97.9 97.9 Pulse 66 Resp 18 B/P (MAP) 159/78 (105) Pulse Ox 98 O2 Delivery Room Air Intake and Output 10/27/20 10/27/20 10/28/20 15:00 23:00 07:00 Intake Total 1000 ml 2100 ml Output Total 0 ml Balance 1000 ml 2100 ml Justicifation of Admission Dx: Justifications for Admission: Justification of Admission Dx: Yes CHF: Hemodynamic Instability Acute Renal Failure: RF Can't Be Managed Outpt Chronic Renal Failure: Renail Failure FULBRIGHT,RANDAL W MD Oct 28, 2020 08:46
[2020-10-28 09:25] LABS: HEMATOCRIT 29.6 % (36.0-47.0); HEMOGLOBIN 9.7 g/dL (12.0-15.5); RED BLOOD COUNT 3.56 x10^6/uL (3.50-5.40); RED CELL DISTRIBUTION WIDTH 15.8 % (11.5-14.5); WHITE BLOOD COUNT 8.9 x10^3/uL (4.0-11.0)
[2020-10-28 09:42] LABS: CALCIUM 8.3 mg/dL (8.5-10.1); CREATININE 7.6 mg/dL (0.6-1.0); GFR 5.4; PHOSPHORUS 6.6 mg/dL (2.6-4.7); POTASSIUM 5.4 mmol/L (3.5-5.1)
[2020-10-28 09:45] LABS: CHOLESTEROL/HDL RATIO 4.1
[2020-10-28] MEDS: CARVEDILOL 6.25 MG TABLET. PO SCH ×2 (10:10→17:36)
[2020-10-28] MEDS: POLYETHYLENE GLYCOL 3350 17 GM PACKET. PO SCH (10:10)
[2020-10-28] MEDS: ASPIRIN ENTERIC COATED 81 MG TABLET.DR. PO SCH (10:10)
[2020-10-28] MEDS: LACTOBACILLUS RHAMNOSUS GG 1 CAPSULE. PO SCH ×2 (10:10→21:06)
--- NOTE | 2020-10-28 10:13 | NUR ---
SW following. Discussed with RN, pt from home with , room air, renal diet. PT/OT recommending home. Pt having an echo today, creatinine high today. RN advised no SW needs at this time. Pt not medically ready for discharge. SW will continue to follow.
--- NOTE | 2020-10-28 10:15 | PDOC ---
Date of Service: DATE: 10/28/20 TIME: 10:11 Objective: Objective: No GI concerns per nurse - to have echo today. Vital Signs: Vital Signs Date Time Temp Pulse Resp B/P (MAP) Pulse Ox O2 Delivery O2 Flow Rate FiO2 10/28/20 07:00 97.9 66 18 159/78 (105) 98 Room Air 97.9 Labs: Laboratory Tests Test 10/27/20 11:10 10/27/20 12:06 10/27/20 17:02 10/27/20 21:40 White Blood Count 8.3 x10^3/uL Red Blood Count 3.50 x10^6/uL Hemoglobin 9.7 g/dL Hematocrit 28.9 % Mean Corpuscular Volume 83 fL Mean Corpuscular Hemoglobin 28 pg Mean Corpuscular Hemoglobin Concent 33 g/dL Red Cell Distribution Width 15.8 % Platelet Count 268 x10^3/uL Neutrophils (%) (Auto) 59 % Lymphocytes (%) (Auto) 23 % Monocytes (%) (Auto) 13 % Eosinophils (%) (Auto) 5 % Basophils (%) (Auto) 1 % Neutrophils # (Auto) 4.9 x10^3/uL Lymphocytes # (Auto) 1.9 x10^3/uL Monocytes # (Auto) 1.1 x10^3/uL Eosinophils # (Auto) 0.4 x10^3/uL Basophils # (Auto) 0.1 x10^3/uL Sodium Level 135 mmol/L Potassium Level 5.3 mmol/L Chloride Level 101 mmol/L Carbon Dioxide Level 19 mmol/L Anion Gap 15 Blood Urea Nitrogen 120 mg/dL Creatinine 7.6 mg/dL Estimated GFR (Cockcroft-Gault) 5.4 Glucose Level 282 mg/dL Calcium Level 8.6 mg/dL Phosphorus Level 6.8 mg/dL Magnesium Level 2.3 mg/dL Glucose (Fingerstick) 269 mg/dL 115 mg/dL 206 mg/dL Test 10/28/20 07:22 10/28/20 09:15 10/28/20 09:18 Glucose (Fingerstick) 166 mg/dL White Blood Count 8.9 x10^3/uL Red Blood Count 3.56 x10^6/uL Hemoglobin 9.7 g/dL Hematocrit 29.6 % Mean Corpuscular Volume 83 fL Mean Corpuscular Hemoglobin 27 pg Mean Corpuscular Hemoglobin Concent 33 g/dL Red Cell Distribution Width 15.8 % Platelet Count 262 x10^3/uL Magnesium Level 2.0 mg/dL Triglycerides Level 204 mg/dL Cholesterol Level 152 mg/dL LDL Cholesterol, Calculated 74 mg/dL VLDL Cholesterol, Calculated 41 mg/dL Non-HDL Cholesterol Calculated 115 mg/dL HDL Cholesterol 37 mg/dL Cholesterol/HDL Ratio 4.1 Sodium Level 137 mmol/L Potassium Level 5.4 mmol/L Chloride Level 105 mmol/L Carbon Dioxide Level 18 mmol/L Anion Gap 14 Blood Urea Nitrogen 110 mg/dL Creatinine 7.6 mg/dL Estimated GFR (Cockcroft-Gault) 5.4 Glucose Level 205 mg/dL Calcium Level 8.3 mg/dL Phosphorus Level 6.6 mg/dL Current Medicatio Imaging: Echo 10/28 pending PE: out of room A/P: REESE, HTN, CAD, DM Anemia (normal iron), elevated lipase (unclear significance - no pancreatitis symptoms, normal pancreas imaging) ?GERD ?delayed gastric emptying Cholelithiasis -- Stable GI-calvo. Continue PPI, plan for outpt scopes. Justicifation of Admission Dx: Justifications for Admission: Justification of Admission Dx: Yes CHF: Hemodynamic Instability Acute Renal Failure: RF Can't Be Managed Outpt Chronic Renal Failure: Renail Failure KIRTI JIMENEZ Oct 28, 2020 10:15
[2020-10-28 11:00] VITALS: BP 147/73
--- NOTE | 2020-10-28 12:07 | PDOC ---
Renal-Progress Notes Subjective Notes Notes NO COMPLAINTS VOICED History of Present Illness Hx of present illness STABLE Vitals Vitals Vital Signs Date Time Temp Pulse Resp B/P (MAP) Pulse Ox O2 Delivery O2 Flow Rate FiO2 10/28/20 11:00 97.9 62 18 147/73 (97) 98 Room Air 97.9 Weight Weight [ ] I.O. Intake and Output Intake and Output 10/28/20 07:00 Intake Total 3100 ml Output Total 0 ml Balance 3100 ml Intake Oral 1100 ml IV Total 2000 ml Output Urine Total 0 ml # Voids 3 Labs Labs Laboratory Tests Test 10/27/20 12:06 10/27/20 17:02 10/27/20 21:40 10/28/20 07:22 Glucose (Fingerstick) 269 mg/dL (70-99) 115 mg/dL (70-99) 206 mg/dL (70-99) 166 mg/dL (70-99) Test 10/28/20 09:15 10/28/20 09:18 10/28/20 10:30 White Blood Count 8.9 x10^3/uL (4.0-11.0) Red Blood Count 3.56 x10^6/uL (3.50-5.40) Hemoglobin 9.7 g/dL (12.0-15.5) Hematocrit 29.6 % (36.0-47.0) Mean Corpuscular Volume 83 fL (79-100) Mean Corpuscular Hemoglobin 27 pg (25-35) Mean Corpuscular Hemoglobin Concent 33 g/dL (31-37) Red Cell Distribution Width 15.8 % (11.5-14.5) Platelet Count 262 x10^3/uL (140-400) Magnesium Level 2.0 mg/dL (1.8-2.4) Triglycerides Level 204 mg/dL (0-150) Cholesterol Level 152 mg/dL (0-200) LDL Cholesterol, Calculated 74 mg/dL (0-100) VLDL Cholesterol, Calculated 41 mg/dL (0-40) Non-HDL Cholesterol Calculated 115 mg/dL (0-129) HDL Cholesterol 37 mg/dL (40-60) Cholesterol/HDL Ratio 4.1 Sodium Level 137 mmol/L (136-145) Potassium Level 5.4 mmol/L (3.5-5.1) Chloride Level 105 mmol/L (98-107) Carbon Dioxide Level 18 mmol/L (21-32) Anion Gap 14 (6-14) Blood Urea Nitrogen 110 mg/dL (7-20) Creatinine 7.6 mg/dL (0.6-1.0) Estimated GFR (Cockcroft-Gault) 5.4 Glucose Level 205 mg/dL (70-99) Calcium Level 8.3 mg/dL (8.5-10.1) Phosphorus Level 6.6 mg/dL (2.6-4.7) Glucose (Fingerstick) 197 mg/dL (70-99) Micro Micro Microbiology 10/26/20 Blood Culture - Preliminary, Resulted NO GROWTH AFTER 2 DAYS 10/26/20 Urine Culture - Final, Complete Review of Systems Constitutional: yes: weakness, alert Ears/Nose/Throat: Yes: no symptom reported Eyes: Yes: no symptom reported Pulmonary: Yes no symptom reported Cardiovascular: Yes no symptom reported Gastrointestional: Yes: no symptom reported Genitourinary: Yes: no symptom reported Musculoskeletal: Yes: no symptom reported Skin: Yes no symptom reported Psychiatric/Neurological: Yes: no symptom reported Endocrine: Yes: no symptom reported Physical Exam General Appearance: no apparent distress Skin: warm Respiratory: bilateral CTA Heart: S1S2 Abdomen: soft, bowel sounds present Extremities: pulses present, no edema Neurology: alert, oriented Musculoskeletal: Osteoarthritis Assessment Assessment IMP REESE-ATN-CR DOWN TO 7.6 HYPONATREMIA HYPERKALEMIA UREMIA EXTRACELLULAR VOLUME DEPLETION ANEMIA OF CKD ELEVATED LIPASE-PROB DUE TO REESE UNCONTROLLED HTN DM II UTI PLAN HYDRATION AVOID NEPHROTOXINS ANTIBIOTICS CONTROL BP IMAGING DONE NOTED ABOVE RENAL BX IF CLEARANCE NOT IMPROVED WILL CHECK RENAL SCAN WILL FOLLOW D/W MEI PEREZ MD Oct 28, 2020 12:07
[2020-10-28] MEDS: cefTRIAXone IV Push 1 GM VIAL. IVP SCH (12:37)
[2020-10-28] MEDS: IV NORMAL SALINE 1000ML BAG 1,000 ML IV SCH ×3 (12:38→21:07)
--- NOTE | 2020-10-28 13:21 | PDOC ---
CARDIO Progress Notes Date and Time Date of Service 10/28/2020 Time of Evaluation 1140 Subjective Subjective: No Chest Pain, No shortness of breath, No Palpitations Vitals Vitals Vital Signs Date Time Temp Pulse Resp B/P (MAP) Pulse Ox O2 Delivery O2 Flow Rate FiO2 10/28/20 11:00 97.9 62 18 147/73 (97) 98 Room Air 97.9 Weight Weight [ ] Input and Output Intake and Output Intake and Output 10/28/20 07:00 Intake Total 3100 ml Output Total 0 ml Balance 3100 ml Intake Oral 1100 ml IV Total 2000 ml Output Urine Total 0 ml # Voids 3 Laboratory Labs Laboratory Tests Test 10/27/20 17:02 10/27/20 21:40 10/28/20 07:22 10/28/20 09:15 Glucose (Fingerstick) 115 mg/dL (70-99) 206 mg/dL (70-99) 166 mg/dL (70-99) White Blood Count 8.9 x10^3/uL (4.0-11.0) Red Blood Count 3.56 x10^6/uL (3.50-5.40) Hemoglobin 9.7 g/dL (12.0-15.5) Hematocrit 29.6 % (36.0-47.0) Mean Corpuscular Volume 83 fL (79-100) Mean Corpuscular Hemoglobin 27 pg (25-35) Mean Corpuscular Hemoglobin Concent 33 g/dL (31-37) Red Cell Distribution Width 15.8 % (11.5-14.5) Platelet Count 262 x10^3/uL (140-400) Magnesium Level 2.0 mg/dL (1.8-2.4) Triglycerides Level 204 mg/dL (0-150) Cholesterol Level 152 mg/dL (0-200) LDL Cholesterol, Calculated 74 mg/dL (0-100) VLDL Cholesterol, Calculated 41 mg/dL (0-40) Non-HDL Cholesterol Calculated 115 mg/dL (0-129) HDL Cholesterol 37 mg/dL (40-60) Cholesterol/HDL Ratio 4.1 Test 10/28/20 09:18 10/28/20 10:30 Sodium Level 137 mmol/L (136-145) Potassium Level 5.4 mmol/L (3.5-5.1) Chloride Level 105 mmol/L (98-107) Carbon Dioxide Level 18 mmol/L (21-32) Anion Gap 14 (6-14) Blood Urea Nitrogen 110 mg/dL (7-20) Creatinine 7.6 mg/dL (0.6-1.0) Estimated GFR (Cockcroft-Gault) 5.4 Glucose Level 205 mg/dL (70-99) Calcium Level 8.3 mg/dL (8.5-10.1) Phosphorus Level 6.6 mg/dL (2.6-4.7) Glucose (Fingerstick) 197 mg/dL (70-99) Microbiology Micro Microbiology 10/26/20 Blood Culture - Preliminary, Resulted NO GROWTH AFTER 2 DAYS 10/26/20 Urine Culture - Final, Complete Review of Systems Constitutional: yes: weakness, alert Ears/Nose/Throat: Yes: no symptom reported Eyes: Yes: no symptom reported Pulmonary: Yes no symptom reported Cardiovascular: Yes no symptom reported Gastrointestional: Yes: no symptom reported Genitourinary: Yes: no symptom reported Musculoskeletal: Yes: no symptom reported Skin: Yes no symptom reported Psychiatric/Neurological: Yes: no symptom reported Endocrine: Yes: no symptom reported Physical Exam HEENT: Neck Supple W Full Motion Chest: Symmetric LUNGS: Clear to Auscultation Heart: S1S2, RRR (SR) Abdomen: Soft N/T Extremities: No Edema, No Calf Tenderness Neurology: alert, oriented, follow commands Assessment Assessment 1. Severe REESE/uremia with mild hyperkalemia: remains the same 2. Abdominal/Flank pain with UTI: noted hx of renal cysts, nephrostomy tube placement 3. HTN urgency: improved 4. CAD: noted mixed defect from prior MPI. No known PCIs, clinically stable 5. DM2: uncontrolled A1C 9.5 per PCP 6. Chronic diastolic/systolic CHF: compensated. EF improved with preliminary EF at 50% 7. ICM: past EF at 35-40% and improved as above Recommendations 1. IVF per nephrology DC metformin. NO ACEi/ARB, discussed stopping home NSAIDs completely. Antibiotics per PCP 2. Baby ASA. Continue coreg. Labetolol IV PRN. Lipitor 3. Failed appointment in our clinic, discussed adherence. 4. Supportive care. Justicifation of Admission Dx: Justifications for Admission: Justification of Admission Dx: Yes CHF: Hemodynamic Instability Acute Renal Failure: RF Can't Be Managed Outpt Chronic Renal Failure: Renail Failure JOSEFINA COOPER APRN Oct 28, 2020 13:21
--- NOTE | 2020-10-28 14:51 | CARD ---
MR#: [id number] Date of Study: 10/28/2020 Ordering Physician: JOSEFINA COOPER, Referring Physician: JOSEFINA COOPER, Tech: Jayshree Roberson, [facility] APPROVED REPORT EXAM: Two-dimensional and M-mode echocardiogram with Doppler and color Doppler. Other Information Quality : AverageHR: 59bpm INDICATION Cardiomyopathy RISK FACTORS Hypertension Diabetes 2D DIMENSIONS RVDd3.3 (2.9-3.5cm)Left Atrium(2D)3.4 (1.6-4.0cm) IVSd1.0 (0.7-1.1cm)Aortic Root(2D)3.4 (2.0-3.7cm) LVDd5.4 (3.9-5.9cm)LVOT Diameter2.1 (1.8-2.4cm) PWd1.0 (0.7-1.1cm)LVDs3.7 (2.5-4.0cm) FS (%) 32.2 %SV84.6 ml Aortic Valve AoV Peak Fady.121.3cm/sAoV VTI27.0cm AO Peak GR.5.9mmHgLVOT Peak Fady.100.0cm/s LVOT VTI 22.92cmAO Mean GR.3mmHg HAFSA (VMAX)2.50xn9PLL (VTI)2.83cm2 Mitral Valve MV E Nfwwicqk14.9cm/sMV DECEL [id number] MV A Lolmzhlu44.7cm/sMV [id number] E/A Ratio1.0MVA (PHT)3.01cm2 TDI E/Lateral E'7.7E/Medial E'11.1 Pulmonary Valve PV Peak Btdwuiqd16.6cm/sPV Peak Grad.4mmHg Tricuspid Valve TR P. [id number]/sRAP [id number] TR Peak Gr.45pcYrLCMH31inNu Pulmonary Vein S1 Vfnuggoe14.1cm/sD2 Lmxmjsfr45.6cm/s PVa [id number] LEFT VENTRICLE The left ventricle is normal size. There is normal left ventricular wall thickness. The left ventricu lar systolic function is normal and the ejection fraction is within normal range. The Ejection Fracti on is 50-55%. There is normal LV segmental wall motion. Transmitral Doppler flow pattern is Grade I-a bnormal relaxation pattern. RIGHT VENTRICLE The right ventricle is normal size. There is normal right ventricular wall thickness. The right ventr icular systolic function is normal. ATRIA The left atrium size is normal. The right atrium size is normal. The interatrial septum is intact wit h no evidence for an atrial septal defect or patent foramen ovale as noted on 2-D or Doppler imaging. AORTIC VALVE The aortic valve is normal in structure and function. Doppler and Color Flow revealed trace aortic re gurgitation. There is no significant aortic valvular stenosis. Calculated aortic valve area is 2.90 c m2 with maximum pressure gradient of 6 mmHg and mean pressure gradient of 3 mmHg. MITRAL VALVE The mitral valve is normal in structure and function. There is no evidence of mitral valve prolapse. There is no mitral valve stenosis. Doppler and Color-flow revealed trace mitral regurgitation. TRICUSPID VALVE The tricuspid valve is normal in structure and function. Doppler and Color Flow revealed trace tricus pid regurgitation with an estimated PAP of 27 mmHg. There is no tricuspid valve stenosis. PULMONIC VALVE The pulmonic valve is not well visualized. Doppler and Color Flow revealed no pulmonic valvular regur gitation. GREAT VESSELS The aortic root is normal in size. The ascending aorta is normal in size. The IVC is dilated and aung apses >50% with inspiration. PERICARDIAL EFFUSION There is no evidence of significant pericardial effusion. Critical Notification Critical Value: No <Conclusion> The left ventricle is normal size. The left ventricular systolic function is normal and the ejection fraction is within normal range. The Ejection Fraction is 50-55%. There is normal LV segmental wall motion. Doppler and Color Flow revealed trace aortic regurgitation. There is no significant aortic valvular stenosis. Doppler and Color-flow revealed trace mitral regurgitation. Doppler and Color Flow revealed trace tricuspid regurgitation with an estimated PAP of 27 mmHg. Signed by : Yoel Curry MD Electronically Approved : 10/28/2020 14:50:42
[2020-10-28 15:00] VITALS: BP 124/57
[2020-10-28 19:00] VITALS: BP 143/70
[2020-10-28] MEDS: ATORVASTATIN CALCIUM 10 MG TABLET. PO SCH (21:06)
[2020-10-28] MEDS: ONDANSETRON PF 4 MG/2 ML VIAL. IVP PRN (21:09)
[2020-10-28 23:00] VITALS: BP 153/69
[2020-10-29 03:00] VITALS: BP 141/66
--- NOTE | 2020-10-29 04:04 | RAD ---
RENAL SCINTIGRAPHY Clinical Indication: Reason: ACUTE RENAL FAILURE / Spl. Instructions: / History: Comparison: CT abdomen and pelvis without contrast, September 20162020. Technique: The patient received 5.5 mCi of technetium 99m MAG3 intravenously. Posterior dynamic imagi ng of the kidneys was performed. There is a one minute angiographic phase followed by 4 minute frames for a total of 30 minutes. Findings: Blood flow to the kidneys is normal. There is abnormal cortical retention of the right kidney through out the study. There is no clearance from the right kidney. There is abnormal mild clearance of the l eft kidney. The renal split function is 43 percent left kidney and 57 percent right kidney. IMPRESSION: There is abnormal cortical retention of the right kidney without demonstrable clearance. There is abn ormal mild clearance of the left kidney. No obstruction was seen on recent CT. Etiology may be acute tubular necrosis. Electronically signed by: Joseph Hernadez MD (10/29/2020 4:00 AM) [facility]
[2020-10-29 07:00] VITALS: BP 170/73
[2020-10-29] MEDS: INSULIN LISPRO 300 UNITS/3 ML VIAL. SQ SCH ×3 (08:00→17:04)
[2020-10-29 09:53] LABS: HEMATOCRIT 27.8 % (36.0-47.0); HEMOGLOBIN 9.3 g/dL (12.0-15.5); RED BLOOD COUNT 3.33 x10^6/uL (3.50-5.40); RED CELL DISTRIBUTION WIDTH 15.7 % (11.5-14.5)
[2020-10-29] MEDS: IV NORMAL SALINE 1000ML BAG 1,000 ML IV SCH ×2 (10:01→21:14)
[2020-10-29 10:09] LABS: CALCIUM 8.3 mg/dL (8.5-10.1); CREATININE 7.1 mg/dL (0.6-1.0); GFR 5.9; POTASSIUM 5.3 mmol/L (3.5-5.1)
[2020-10-29] MEDS: LACTOBACILLUS RHAMNOSUS GG 1 CAPSULE. PO SCH ×2 (10:22→21:13)
[2020-10-29] MEDS: CARVEDILOL 6.25 MG TABLET. PO SCH ×2 (10:22→16:51)
[2020-10-29] MEDS: PANTOPRAZOLE 40 MG TABLET.DR. PO SCH (10:22)
[2020-10-29] MEDS: ASPIRIN ENTERIC COATED 81 MG TABLET.DR. PO SCH (10:22)
[2020-10-29] MEDS: POLYETHYLENE GLYCOL 3350 17 GM PACKET. PO SCH (10:32)
--- NOTE | 2020-10-29 11:02 | PDOC ---
PROGRESS NOTES Date of Service: DATE: 10/29/20 TIME: 11:02 Chief Complaint Chief Complaint Impression: 1. No acute intra-abdominal or pelvic process detected. 2. Cholelithiasis. 3. Sigmoid diverticulosis without acute diverticulitis. impression Assessment/Plan Acute hypertensive emergency Acute renal failure remote history of a cyst drainage percutaneously done in February 2019. had a nephrostomy tube that was placed but that was removed by urology around that time. hyponatremia hyperkalemia Normocytic anemia Elevated lipase Cholelithiasis. diabetes stress test showed mixed perfusion defect involving the mid to distal anterior and anterolateral avalos consistent with small infarct and moderate amount of ischemia. 2018 Mid to distal anterior wall hypokinesis with ejection fraction calculated at 50%. on echo UREMIA EXTRACELLULAR VOLUME DEPLETION ANEMIA OF CKD ELEVATED LIPASE-PROB DUE TO REESE DM II UTI plan Admit to medicine for further management Continue IV fluids Strict I's and O's Nephrology consult R ISS and Accu-Cheks IV labetalol as needed for systolic blood pressure goals less than 180 Heparin for DVT prophylaxis ADA diet Full code Discussed with RN and SW Disposition inpatient management Surrogate decision maker is the consider renal bx if cr not improved cardiology consult 130 cr remains elevated at 7.1 , 700cc urine output 1-29 28 min pt exam, chart review, > 50% of time spent with exam, chart review, pt care coordination Justifications for Admission Justifications for Admission Other Justification History of Present Illness History of Present Illness Chief Complaint: Chief Complain: dizziness and weakness History of Present Illness: HPI: Patient is a 60-year-old female with past medical history of diabetes mellitus type 2 who comes in with complaints of dizziness and weakness in her lower extremities. She also had some right-sided flank pain in which she had a injection trigger point last week and said that her pain improved slightly with that. However, she has been dealing with this dizziness for the past couple of weeks. Patient denies any fevers, chills, rashes, chest pain or shortness of breath or abdominal pain or dysuria. Patient does have a history of diabetes which she takes Metformin as she said that she takes other medications in which she said that she does not feel good taking them. Patient did have some outpatient lab work done at that is why she came because they stated that she had some renal failure. Patient does also have a remote history of a cyst drainage percutaneously done in February 2019. She also had a nephrostomy tube that was placed but that was removed by urology around that time. Denies kidney stones, dysuria, hematuria or incontinence or frequency. Of note, patient was recently admitted to the hospital for treatment for pneumonia and she was taking Levaquin at that time. Past Medical/Surgical History: PMH/PSH: Past Medical History: Diabetes-Type II, DECREASED L KIDNEY FUNCTION Past Surgical History: cyst on L kidney status post drainage in 2018 Allergies: Allergies: Coded Allergies: No Known Drug Allergies (Unverified , 03/14/19) Family History: Family History: Reviewed with no relevant findings Social History: Social History: Smoking Status: Former Smoker Alcohol Use: None Vitals Vitals Vital Signs Date Time Temp Pulse Resp B/P (MAP) Pulse Ox O2 Delivery O2 Flow Rate FiO2 10/29/20 10:23 62 170/73 10/29/20 07:00 98.1 20 98 Room Air 98.1 Physical Exam Physical Exam GEN: No apparent distress. Alert and oriented HEENT: Normal cephalic, atraumatic, external auditory canals are patent EYES: Extraocular muscles are intact, pupil are equally round and reactive to light and accommodation MUSCULOSKELETAL: Well developed , well nourished, good range of motion ENDOCRINE: No thyromegaly was palpated LYMPHATICS: No cervical chain or axillary nodes were noted HEMATOPOIETIC: No bruising NECK: Supple, no JVD, no thyromegaly was noted LUNGS: Clear to auscultation in all lung guerrero without rhonchi or wheezing HEART: RRR, S!, S2 present. Peripheral pulses intact, no obvious murmurs noted ABDOMEN: Soft, nontender. Positive bowel sounds, no organomegaly, normal bowel sounds EXTREMITIES: Without clubbing, cyanosis, or edema. Pedal pulses intact. N egative Homans sign NEUROLOGIC: Normal speech and tone. A&O x 3, moves all extremities, no obvious focal deficits PSYCHIATRIC: Normal affect, normal mood. Stable SKIN: No ulcerations or rashes, good skin turgor, no jaundice VASCULAR: Good capillary refill, neurovascular bundle appears to be intact General: Alert, Oriented X3, Cooperative, No acute distress Heart: Regular rate (SR), Normal S1, Normal S2, No murmurs Abdomen: Soft, No tenderness Extremities: No cyanosis, No edema Skin: No breakdown, No significant lesion Labs LABS Laboratory Tests Test 10/28/20 16:59 10/28/20 19:30 10/29/20 07:36 10/29/20 09:20 Glucose (Fingerstick) 157 mg/dL (70-99) 237 mg/dL (70-99) 136 mg/dL (70-99) White Blood Count 9.0 x10^3/uL (4.0-11.0) Red Blood Count 3.33 x10^6/uL (3.50-5.40) Hemoglobin 9.3 g/dL (12.0-15.5) Hematocrit 27.8 % (36.0-47.0) Mean Corpuscular Volume 84 fL (79-100) Mean Corpuscular Hemoglobin 28 pg (25-35) Mean Corpuscular Hemoglobin Concent 33 g/dL (31-37) Red Cell Distribution Width 15.7 % (11.5-14.5) Platelet Count 243 x10^3/uL (140-400) Sodium Level 135 mmol/L (136-145) Potassium Level 5.3 mmol/L (3.5-5.1) Chloride Level 105 mmol/L (98-107) Carbon Dioxide Level 16 mmol/L (21-32) Anion Gap 14 (6-14) Blood Urea Nitrogen 105 mg/dL (7-20) Creatinine 7.1 mg/dL (0.6-1.0) Estimated GFR (Cockcroft-Gault) 5.9 Glucose Level 213 mg/dL (70-99) Calcium Level 8.3 mg/dL (8.5-10.1) Assessment and Plan Assessmemt and Plan Problems Medical Problems: (1) Acute pancreatitis Status: Acute (2) ARF (acute renal failure) Status: Acute Comment Review of Relevant I have reviewed the following items misha (where applicable) has been applied. Labs Laboratory Tests Test 10/27/20 11:10 10/27/20 12:06 10/27/20 17:02 10/27/20 21:40 White Blood Count 8.3 x10^3/uL (4.0-11.0) Red Blood Count 3.50 x10^6/uL (3.50-5.40) Hemoglobin 9.7 g/dL (12.0-15.5) Hematocrit 28.9 % (36.0-47.0) Mean Corpuscular Volume 83 fL (79-100) Mean Corpuscular Hemoglobin 28 pg (25-35) Mean Corpuscular Hemoglobin Concent 33 g/dL (31-37) Red Cell Distribution Width 15.8 % (11.5-14.5) Platelet Count 268 x10^3/uL (140-400) Neutrophils (%) (Auto) 59 % (31-73) Lymphocytes (%) (Auto) 23 % (24-48) Monocytes (%) (Auto) 13 % (0-9) Eosinophils (%) (Auto) 5 % (0-3) Basophils (%) (Auto) 1 % (0-3) Neutrophils # (Auto) 4.9 x10^3/uL (1.8-7.7) Lymphocytes # (Auto) 1.9 x10^3/uL (1.0-4.8) Monocytes # (Auto) 1.1 x10^3/uL (0.0-1.1) Eosinophils # (Auto) 0.4 x10^3/uL (0.0-0.7) Basophils # (Auto) 0.1 x10^3/uL (0.0-0.2) Sodium Level 135 mmol/L (136-145) Potassium Level 5.3 mmol/L (3.5-5.1) Chloride Level 101 mmol/L (98-107) Carbon Dioxide Level 19 mmol/L (21-32) Anion Gap 15 (6-14) Blood Urea Nitrogen 120 mg/dL (7-20) Creatinine 7.6 mg/dL (0.6-1.0) Estimated GFR (Cockcroft-Gault) 5.4 Glucose Level 282 mg/dL (70-99) Calcium Level 8.6 mg/dL (8.5-10.1) Phosphorus Level 6.8 mg/dL (2.6-4.7) Magnesium Level 2.3 mg/dL (1.8-2.4) Glucose (Fingerstick) 269 mg/dL (70-99) 115 mg/dL (70-99) 206 mg/dL (70-99) Test 10/28/20 07:22 10/28/20 09:15 10/28/20 09:18 10/28/20 10:30 Glucose (Fingerstick) 166 mg/dL (70-99) 197 mg/dL (70-99) White Blood Count 8.9 x10^3/uL (4.0-11.0) Red Blood Count 3.56 x10^6/uL (3.50-5.40) Hemoglobin 9.7 g/dL (12.0-15.5) Hematocrit 29.6 % (36.0-47.0) Mean Corpuscular Volume 83 fL (79-100) Mean Corpuscular Hemoglobin 27 pg (25-35) Mean Corpuscular Hemoglobin Concent 33 g/dL (31-37) Red Cell Distribution Width 15.8 % (11.5-14.5) Platelet Count 262 x10^3/uL (140-400) Magnesium Level 2.0 mg/dL (1.8-2.4) Triglycerides Level 204 mg/dL (0-150) Cholesterol Level 152 mg/dL (0-200) LDL Cholesterol, Calculated 74 mg/dL (0-100) VLDL Cholesterol, Calculated 41 mg/dL (0-40) Non-HDL Cholesterol Calculated 115 mg/dL (0-129) HDL Cholesterol 37 mg/dL (40-60) Cholesterol/HDL Ratio 4.1 Sodium Level 137 mmol/L (136-145) Potassium Level 5.4 mmol/L (3.5-5.1) Chloride Level 105 mmol/L (98-107) Carbon Dioxide Level 18 mmol/L (21-32) Anion Gap 14 (6-14) Blood Urea Nitrogen 110 mg/dL (7-20) Creatinine 7.6 mg/dL (0.6-1.0) Estimated GFR (Cockcroft-Gault) 5.4 Glucose Level 205 mg/dL (70-99) Calcium Level 8.3 mg/dL (8.5-10.1) Phosphorus Level 6.6 mg/dL (2.6-4.7) Test 10/28/20 16:59 10/28/20 19:30 10/29/20 07:36 10/29/20 09:20 Glucose (Fingerstick) 157 mg/dL (70-99) 237 mg/dL (70-99) 136 mg/dL (70-99) White Blood Count 9.0 x10^3/uL (4.0-11.0) Red Blood Count 3.33 x10^6/uL (3.50-5.40) Hemoglobin 9.3 g/dL (12.0-15.5) Hematocrit 27.8 % (36.0-47.0) Mean Corpuscular Volume 84 fL (79-100) Mean Corpuscular Hemoglobin 28 pg (25-35) Mean Corpuscular Hemoglobin Concent 33 g/dL (31-37) Red Cell Distribution Width 15.7 % (11.5-14.5) Platelet Count 243 x10^3/uL (140-400) Sodium Level 135 mmol/L (136-145) Potassium Level 5.3 mmol/L (3.5-5.1) Chloride Level 105 mmol/L (98-107) Carbon Dioxide Level 16 mmol/L (21-32) Anion Gap 14 (6-14) Blood Urea Nitrogen 105 mg/dL (7-20) Creatinine 7.1 mg/dL (0.6-1.0) Estimated GFR (Cockcroft-Gault) 5.9 Glucose Level 213 mg/dL (70-99) Calcium Level 8.3 mg/dL (8.5-10.1) Laboratory Tests Test 10/28/20 16:59 10/28/20 19:30 10/29/20 07:36 10/29/20 09:20 Glucose (Fingerstick) 157 mg/dL (70-99) 237 mg/dL (70-99) 136 mg/dL (70-99) White Blood Count 9.0 x10^3/uL (4.0-11.0) Red Blood Count 3.33 x10^6/uL (3.50-5.40) Hemoglobin 9.3 g/dL (12.0-15.5) Hematocrit 27.8 % (36.0-47.0) Mean Corpuscular Volume 84 fL (79-100) Mean Corpuscular Hemoglobin 28 pg (25-35) Mean Corpuscular Hemoglobin Concent 33 g/dL (31-37) Red Cell Distribution Width 15.7 % (11.5-14.5) Platelet Count 243 x10^3/uL (140-400) Sodium Level 135 mmol/L (136-145) Potassium Level 5.3 mmol/L (3.5-5.1) Chloride Level 105 mmol/L (98-107) Carbon Dioxide Level 16 mmol/L (21-32) Anion Gap 14 (6-14) Blood Urea Nitrogen 105 mg/dL (7-20) Creatinine 7.1 mg/dL (0.6-1.0) Estimated GFR (Cockcroft-Gault) 5.9 Glucose Level 213 mg/dL (70-99) Calcium Level 8.3 mg/dL (8.5-10.1) Microbiology 10/26/20 Blood Culture - Preliminary, Resulted NO GROWTH AFTER 2 DAYS 10/26/20 Urine Culture - Final, Complete Medications Current Medications Sodium Chloride 1,000 ml @ 100 mls/hr 1X ONCE IV Last administered on 10/26/20at 11:28; Start 10/26/20 at 10:30; Stop 10/26/20 at 20:29; Status DC Ceftriaxone Sodium (Rocephin) 1 gm 1X ONCE IVP Last administered on 10/26/20at 11:28; Start 10/26/20 at 12:00; Stop 10/26/20 at 12:01; Status DC Pantoprazole Sodium (Protonix) 40 mg DAILYAC PO Last administered on 10/29/20at 10:22; Start 10/26/20 at 12:00 Polyethylene Glycol (miraLAX PACKET) 17 gm DAILY PO Last administered on 10/29/20at 10:32; Start 10/26/20 at 12:00 Bisacodyl (Dulcolax Tab) 5 mg PRN DAILY PRN PO CONSTIPATION; Start 10/26/20 at 12:00 Metoprolol Tartrate (Lopressor Vial) 5 mg PRN Q6HRS PRN IVP HYPERTENSION, 1ST CHOICE; Start 10/26/20 at 13:15; Stop 10/26/20 at 13:15; Status DC Labetalol HCl (Normodyne Iv Push) 20 mg PRN Q2HR PRN IVP HYPERTENSION; Start 10/26/20 at 13:15; Stop 10/26/20 at 13:20; Status DC Labetalol HCl (Normodyne Iv Push) 10 mg PRN Q2HR PRN IVP HYPERTENSION Last administered on 10/26/20at 13:27; Start 10/26/20 at 13:30; Stop 10/28/20 at 12:06; Status DC Insulin Human Lispro (HumaLOG) 0-9 UNITS TIDWMEALS SQ Last administered on 10/28/20at 17:39; Start 10/26/20 at 17:00 Dextrose (Dextrose 50%-Water Syringe) 12.5 gm PRN Q15MIN PRN IV SEE COMMENTS; Start 10/26/20 at 14:45; Stop 10/26/20 at 14:48; Status DC Sennosides (Senna) 17.2 mg PRN BID PRN PO CONSTIPATION; Start 10/26/20 at 14:45 Docusate Sodium (Colace) 100 mg PRN DAILY PRN PO HARD STOOLS; Start 10/26/20 at 14:45 Ondansetron HCl (Zofran) 4 mg PRN Q6HRS PRN IVP NAUSEA/VOMITING Last administered on 10/28/20at 21:09; Start 10/26/20 at 14:45 Dextrose (Dextrose 50%-Water Syringe) 12.5 gm PRN Q15MIN PRN IV SEE COMMENTS; Start 10/26/20 at 14:45 Acetaminophen (Tylenol) 650 mg PRN Q4HRS PRN PO TEMP OVER 100.4F OR MILD PAIN; Start 10/26/20 at 14:45 Sodium Chloride 1,000 ml @ 125 mls/hr Q8H IV Last administered on 10/29/20at 10:01; Start 10/26/20 at 17:30 Amlodipine Besylate (Norvasc) 5 mg DAILY PO Last administered on 10/29/20at 10:23; Start 10/27/20 at 13:00 Ceftriaxone Sodium (Rocephin) 1 gm Q24H IVP Last administered on 10/28/20at 12:37; Start 10/27/20 at 13:00 Lactobacillus Rhamnosus (Culturelle) 1 cap BID PO Last administered on 10/29/20at 10:22; Start 10/27/20 at 21:00 Aspirin (Ecotrin) 81 mg DAILYWBKFT PO Last administered on 10/29/20at 10:22; Start 10/27/20 at 17:00 Carvedilol (Coreg) 6.25 mg BIDWMEALS PO Last administered on 10/29/20at 10:22; Start 10/27/20 at 17:00 Labetalol HCl (Normodyne Iv Push) 20 mg PRN Q2HR PRN IVP HYPERTENSION; Start 10/27/20 at 16:30 Atorvastatin Calcium (Lipitor) 10 mg QHS PO Last administered on 10/28/20at 21:06; Start 10/28/20 at 21:00 Active Scripts Active Reported Aspir-Low (Aspirin) 81 Mg Tablet.dr 1 Tab PO DAILY Metformin Hcl Er (Metformin Hcl) 500 Mg Tab.er.24h 500 Mg PO BIDWMEALS Vitals/I & O Vital Sign - Last 24 Hours 10/28/20 10/28/20 10/28/20 10/28/20 15:00 17:36 19:00 20:19 Temp 97.4 97.4 97.4 97.4 Pulse 68 67 66 Resp 18 18 B/P (MAP) 124/57 (79) 169/76 143/70 (94) Pulse Ox 98 97 O2 Delivery Room Air Room Air Room Air 10/28/20 10/29/20 10/29/20 10/29/20 23:00 03:00 07:00 10:22 Temp 97.6 97.8 98.1 97.6 97.8 98.1 Pulse 61 88 62 62 Resp 18 17 20 B/P (MAP) 153/69 (97) 141/66 (91) 170/73 (105) 170/73 Pulse Ox 96 98 98 O2 Delivery Room Air Room Air Room Air 10/29/20 10:23 Pulse 62 B/P (MAP) 170/73 Intake and Output 10/28/20 10/28/20 10/29/20 15:00 23:00 07:00 Intake Total 120 ml 0 ml Output Total 300 ml 400 ml Balance -300 ml -280 ml 0 ml Justicifation of Admission Dx: Justifications for Admission: Justification of Admission Dx: Yes CHF: Hemodynamic Instability Acute Renal Failure: RF Can't Be Managed Outpt Chronic Renal Failure: Renail Failure RANDAL ENRIQUE MD Oct 29, 2020 11:02
[2020-10-29 11:15] VITALS: BP 154/48
[2020-10-29 15:19] VITALS: BP 158/81
[2020-10-29] MEDS ORDERED: FUROSEMIDE 40 MG/4 ML VIAL. IVP ONE (16:00)
--- NOTE | 2020-10-29 16:00 | PDOC ---
Renal-Progress Notes Subjective Notes Notes FEELING SWOLLEN History of Present Illness Hx of present illness NO ACUTE CHANGES Vitals Vitals Vital Signs Date Time Temp Pulse Resp B/P (MAP) Pulse Ox O2 Delivery O2 Flow Rate FiO2 10/29/20 15:19 98.0 65 20 158/81 (106) 95 Room Air 98.0 Weight Weight [ ] I.O. Intake and Output Intake and Output 10/29/20 07:00 Intake Total 120 ml Output Total 700 ml Balance -580 ml Intake Oral 120 ml Output Urine Total 700 ml # Voids 1 Labs Labs Laboratory Tests Test 10/28/20 16:59 10/28/20 19:30 10/29/20 07:36 10/29/20 09:20 Glucose (Fingerstick) 157 mg/dL (70-99) 237 mg/dL (70-99) 136 mg/dL (70-99) White Blood Count 9.0 x10^3/uL (4.0-11.0) Red Blood Count 3.33 x10^6/uL (3.50-5.40) Hemoglobin 9.3 g/dL (12.0-15.5) Hematocrit 27.8 % (36.0-47.0) Mean Corpuscular Volume 84 fL (79-100) Mean Corpuscular Hemoglobin 28 pg (25-35) Mean Corpuscular Hemoglobin Concent 33 g/dL (31-37) Red Cell Distribution Width 15.7 % (11.5-14.5) Platelet Count 243 x10^3/uL (140-400) Sodium Level 135 mmol/L (136-145) Potassium Level 5.3 mmol/L (3.5-5.1) Chloride Level 105 mmol/L (98-107) Carbon Dioxide Level 16 mmol/L (21-32) Anion Gap 14 (6-14) Blood Urea Nitrogen 105 mg/dL (7-20) Creatinine 7.1 mg/dL (0.6-1.0) Estimated GFR (Cockcroft-Gault) 5.9 Glucose Level 213 mg/dL (70-99) Calcium Level 8.3 mg/dL (8.5-10.1) Micro Micro Microbiology 10/26/20 Blood Culture - Preliminary, Resulted NO GROWTH AFTER 3 DAYS 10/26/20 Urine Culture - Final, Complete Review of Systems Constitutional: yes: weakness, alert Ears/Nose/Throat: Yes: no symptom reported Eyes: Yes: no symptom reported Pulmonary: Yes no symptom reported Cardiovascular: Yes no symptom reported Gastrointestional: Yes: no symptom reported Genitourinary: Yes: no symptom reported Musculoskeletal: Yes: no symptom reported Skin: Yes no symptom reported Psychiatric/Neurological: Yes: no symptom reported Endocrine: Yes: no symptom reported Physical Exam General Appearance: no apparent distress Skin: warm Respiratory: bilateral CTA Heart: S1S2 Abdomen: soft, bowel sounds present Extremities: pulses present, no edema Neurology: alert, oriented, follow commands Musculoskeletal: Osteoarthritis Assessment Assessment IMP HYPERVOLEMIA REESE-ATN-CR DOWN TO 7.1 HYPONATREMIA HYPERKALEMIA UREMIA ANEMIA OF CKD ELEVATED LIPASE-PROB DUE TO REESE LABILE HTN DM II UTI PLAN HYDRATION AVOID NEPHROTOXINS ANTIBIOTICS CONTROL BP IMAGING DONE NOTED ABOVE RENAL BX FOR SATURDAY RENAL SCAN-C/W ATN 24 URINE STUDY SEROLOGY STOP IVF IV LASIX WILL FOLLOW MEI YEAGER MD Oct 29, 2020 16:00
[2020-10-29] MEDS: cefTRIAXone IV Push 1 GM VIAL. IVP SCH (16:52)
[2020-10-29 19:00] VITALS: BP 160/78
[2020-10-29] MEDS: ATORVASTATIN CALCIUM 10 MG TABLET. PO SCH (21:13)
[2020-10-29 23:00] VITALS: BP 155/78
[2020-10-30 03:05] VITALS: BP 147/67
[2020-10-30 07:00] VITALS: BP 158/73
[2020-10-30] MEDS: INSULIN LISPRO 300 UNITS/3 ML VIAL. SQ SCH ×3 (08:00→17:27)
[2020-10-30] MEDS: LACTOBACILLUS RHAMNOSUS GG 1 CAPSULE. PO SCH ×2 (09:20→21:23)
[2020-10-30] MEDS: PANTOPRAZOLE 40 MG TABLET.DR. PO SCH (09:20)
[2020-10-30] MEDS: ASPIRIN ENTERIC COATED 81 MG TABLET.DR. PO SCH (09:21)
[2020-10-30] MEDS: CARVEDILOL 6.25 MG TABLET. PO SCH ×2 (09:21→16:08)
[2020-10-30] MEDS: POLYETHYLENE GLYCOL 3350 17 GM PACKET. PO SCH (09:21)
[2020-10-30 10:09] LABS: BASO # 0.1 x10^3/uL (0.0-0.2); BASO % 2 % (0-3); EOS # 0.5 x10^3/uL (0.0-0.7); EOS % 7 % (0-3); HEMATOCRIT 27.6 % (36.0-47.0); HEMOGLOBIN 9.1 g/dL (12.0-15.5); LYMPH # 1.9 x10^3/uL (1.0-4.8); LYMPH % 27 % (24-48); MEAN CORPUSCULAR HEMOGLOBIN 28 pg (25-35); MEAN CORPUSCULAR HGB CONC 33 g/dL (31-37); MEAN CORPUSCULAR VOLUME 84 fL (79-100); MONO # 0.8 x10^3/uL (0.0-1.1); MONO % 11 % (0-9); NEUT # 3.7 x10^3/uL (1.8-7.7); NEUT % 53 % (31-73); PLATELET COUNT 217 x10^3/uL (140-400); RED CELL DISTRIBUTION WIDTH 15.4 % (11.5-14.5); WHITE BLOOD COUNT 6.9 x10^3/uL (4.0-11.0)
--- NOTE | 2020-10-30 10:11 | PDOC ---
PROGRESS NOTES Date of Service: DATE: 10/30/20 TIME: 10:11 Chief Complaint Chief Complaint Impression: 1. No acute intra-abdominal or pelvic process detected. 2. Cholelithiasis. 3. Sigmoid diverticulosis without acute diverticulitis. impression Assessment/Plan Acute hypertensive emergency Acute renal failure remote history of a cyst drainage percutaneously done in February 2019. had a nephrostomy tube that was placed but that was removed by urology around that time. hyponatremia hyperkalemia Normocytic anemia Elevated lipase Cholelithiasis. diabetes stress test showed mixed perfusion defect involving the mid to distal anterior and anterolateral avlaos consistent with small infarct and moderate amount of ischemia. 2018 Mid to distal anterior wall hypokinesis with ejection fraction calculated at 50%. on echo UREMIA EXTRACELLULAR VOLUME DEPLETION ANEMIA OF CKD ELEVATED LIPASE-PROB DUE TO REESE DM II UTI RENAL BX Saturday10-31-20 RENAL SCAN-C/W ATN 24 URINE STUDY SEROLOGY plan Admit to medicine for further management Continue IV fluids Strict I's and O's Nephrology consult R ISS and Accu-Cheks IV labetalol as needed for systolic blood pressure goals less than 180 Heparin for DVT prophylaxis ADA diet Full code Discussed with RN and SW Disposition inpatient management Surrogate decision maker is the consider renal bx if cr not improved cardiology consult 10-29 cr remains elevated at 7.1 , 700cc urine output 10-28 STABLE BUT RENAL FUNCTION NOT RECOVERING WELL CR 7.4 27 min pt exam, chart review, > 50% of time spent with exam, chart review, pt care coordination Justifications for Admission Justifications for Admission Other Justification ACUTE SEVERE RENAL FAILURE, RTN History of Present Illness History of Present Illness Chief Complaint: Chief Complain: dizziness and weakness History of Present Illness: HPI: Patient is a 60-year-old female with past medical history of diabetes mellitus type 2 who comes in with complaints of dizziness and weakness in her lower extremities. She also had some right-sided flank pain in which she had a injection trigger point last week and said that her pain improved slightly with that. However, she has been dealing with this dizziness for the past couple of weeks. Patient denies any fevers, chills, rashes, chest pain or shortness of breath or abdominal pain or dysuria. Patient does have a history of diabetes which she takes Metformin as she said that she takes other medications in which she said that she does not feel good taking them. Patient did have some outpat ient lab work done at that is why she came because they stated that she had some renal failure. Patient does also have a remote history of a cyst drainage percutaneously done in February 2019. She also had a nephrostomy tube that was placed but that was removed by urology around that time. Denies kidney stones, dysuria, hematuria or incontinence or frequency. Of note, patient was recently admitted to the hospital for treatment for pneumonia and she was taking Levaquin at that time. Past Medical/Surgical History: PMH/PSH: Past Medical History: Diabetes-Type II, DECREASED L KIDNEY FUNCTION Past Surgical History: cyst on L kidney status post drainage in 2018 Allergies: Allergies: Coded Allergies: No Known Drug Allergies (Unverified , 03/14/19) Family History: Family History: Reviewed with no relevant findings Social History: Social History: Smoking Status: Former Smoker Alcohol Use: None Vitals Vitals Vital Signs Date Time Temp Pulse Resp B/P (MAP) Pulse Ox O2 Delivery O2 Flow Rate FiO2 10/30/20 09:21 63 158/73 10/30/20 07:00 97.6 16 97 Room Air 97.6 Physical Exam Physical Exam GEN: No apparent distress. Alert and oriented HEENT: Normal cephalic, atraumatic, external auditory canals are patent EYES: Extraocular muscles are intact, pupil are equally round and reactive to light and accommodation MUSCULOSKELETAL: Well developed , well nourished, good range of motion ENDOCRINE: No thyromegaly was palpated LYMPHATICS: No cervical chain or axillary nodes were noted HEMATOPOIETIC: No bruising NECK: Supple, no JVD, no thyromegaly was noted LUNGS: Clear to auscultation in all lung guerrero without rhonchi or wheezing HEART: RRR, S!, S2 present. Peripheral pulses intact, no obvious murmurs noted ABDOMEN: Soft, nontender. Positive bowel sounds, no organomegaly, normal bowel sounds EXTREMITIES: Without clubbing, cyanosis, or edema. Pedal pulses intact. Negative Homans sign NEUROLOGIC: Normal speech and tone. A&O x 3, moves all extremities, no obv ious focal deficits PSYCHIATRIC: Normal affect, normal mood. Stable SKIN: No ulcerations or rashes, good skin turgor, no jaundice VASCULAR: Good capillary refill, neurovascular bundle appears to be intact General: Alert, Oriented X3, Cooperative, No acute distress Heart: Regular rate (SR), Normal S1, Normal S2, No murmurs Lungs: Clear Abdomen: Normal bowel sounds, Soft, No tenderness Extremities: No cyanosis, No edema Skin: No breakdown, No significant lesion Labs LABS Laboratory Tests Test 10/29/20 16:51 10/29/20 20:28 10/30/20 07:46 10/30/20 09:37 Glucose (Fingerstick) 171 mg/dL (70-99) 162 mg/dL (70-99) 125 mg/dL (70-99) White Blood Count 6.9 x10^3/uL (4.0-11.0) Red Blood Count 3.30 x10^6/uL (3.50-5.40) Hemoglobin 9.1 g/dL (12.0-15.5) Hematocrit 27.6 % (36.0-47.0) Mean Corpuscular Volume 84 fL (79-100) Mean Corpuscular Hemoglobin 28 pg (25-35) Mean Corpuscular Hemoglobin Concent 33 g/dL (31-37) Red Cell Distribution Width 15.4 % (11.5-14.5) Platelet Count 217 x10^3/uL (140-400) Neutrophils (%) (Auto) 53 % (31-73) Lymphocytes (%) (Auto) 27 % (24-48) Monocytes (%) (Auto) 11 % (0-9) Eosinophils (%) (Auto) 7 % (0-3) Basophils (%) (Auto) 2 % (0-3) Neutrophils # (Auto) 3.7 x10^3/uL (1.8-7.7) Lymphocytes # (Auto) 1.9 x10^3/uL (1.0-4.8) Monocytes # (Auto) 0.8 x10^3/uL (0.0-1.1) Eosinophils # (Auto) 0.5 x10^3/uL (0.0-0.7) Basophils # (Auto) 0.1 x10^3/uL (0.0-0.2) Assessment and Plan Assessmemt and Plan Problems Medical Problems: (1) Acute pancreatitis Status: Acute (2) ARF (acute renal failure) Status: Acute Comment Review of Relevant I have reviewed the following items misha (where applicable) has been applied. Labs Laboratory Tests Test 10/28/20 10:30 10/28/20 16:59 10/28/20 19:30 10/29/20 07:36 Glucose (Fingerstick) 197 mg/dL (70-99) 157 mg/dL (70-99) 237 mg/dL (70-99) 136 mg/dL (70-99) Test 10/29/20 09:20 10/29/20 16:51 10/29/20 20:28 10/30/20 07:46 White Blood Count 9.0 x10^3/uL (4.0-11.0) Red Blood Count 3.33 x10^6/uL (3.50-5.40) Hemoglobin 9.3 g/dL (12.0-15.5) Hematocrit 27.8 % (36.0-47.0) Mean Corpuscular Volume 84 fL (79-100) Mean Corpuscular Hemoglobin 28 pg (25-35) Mean Corpuscular Hemoglobin Concent 33 g/dL (31-37) Red Cell Distribution Width 15.7 % (11.5-14.5) Platelet Count 243 x10^3/uL (140-400) Sodium Level 135 mmol/L (136-145) Potassium Level 5.3 mmol/L (3.5-5.1) Chloride Level 105 mmol/L (98-107) Carbon Dioxide Level 16 mmol/L (21-32) Anion Gap 14 (6-14) Blood Urea Nitrogen 105 mg/dL (7-20) Creatinine 7.1 mg/dL (0.6-1.0) Estimated GFR (Cockcroft-Gault) 5.9 Glucose Level 213 mg/dL (70-99) Calcium Level 8.3 mg/dL (8.5-10.1) Glucose (Fingerstick) 171 mg/dL (70-99) 162 mg/dL (70-99) 125 mg/dL (70-99) Test 10/30/20 09:37 White Blood Count 6.9 x10^3/uL (4.0-11.0) Red Blood Count 3.30 x10^6/uL (3.50-5.40) Hemoglobin 9.1 g/dL (12.0-15.5) Hematocrit 27.6 % (36.0-47.0) Mean Corpuscular Volume 84 fL (79-100) Mean Corpuscular Hemoglobin 28 pg (25-35) Mean Corpuscular Hemoglobin Concent 33 g/dL (31-37) Red Cell Distribution Width 15.4 % (11.5-14.5) Platelet Count 217 x10^3/uL (140-400) Neutrophils (%) (Auto) 53 % (31-73) Lymphocytes (%) (Auto) 27 % (24-48) Monocytes (%) (Auto) 11 % (0-9) Eosinophils (%) (Auto) 7 % (0-3) Basophils (%) (Auto) 2 % (0-3) Neutrophils # (Auto) 3.7 x10^3/uL (1.8-7.7) Lymphocytes # (Auto) 1.9 x10^3/uL (1.0-4.8) Monocytes # (Auto) 0.8 x10^3/uL (0.0-1.1) Eosinophils # (Auto) 0.5 x10^3/uL (0.0-0.7) Basophils # (Auto) 0.1 x10^3/uL (0.0-0.2) Laboratory Tests Test 10/29/20 16:51 10/29/20 20:28 10/30/20 07:46 10/30/20 09:37 Glucose (Fingerstick) 171 mg/dL (70-99) 162 mg/dL (70-99) 125 mg/dL (70-99) White Blood Count 6.9 x10^3/uL (4.0-11.0) Red Blood Count 3.30 x10^6/uL (3.50-5.40) Hemoglobin 9.1 g/dL (12.0-15.5) Hematocrit 27.6 % (36.0-47.0) Mean Corpuscular Volume 84 fL (79-100) Mean Corpuscular Hemoglobin 28 pg (25-35) Mean Corpuscular Hemoglobin Concent 33 g/dL (31-37) Red Cell Distribution Width 15.4 % (11.5-14.5) Platelet Count 217 x10^3/uL (140-400) Neutrophils (%) (Auto) 53 % (31-73) Lymphocytes (%) (Auto) 27 % (24-48) Monocytes (%) (Auto) 11 % (0-9) Eosinophils (%) (Auto) 7 % (0-3) Basophils (%) (Auto) 2 % (0-3) Neutrophils # (Auto) 3.7 x10^3/uL (1.8-7.7) Lymphocytes # (Auto) 1.9 x10^3/uL (1.0-4.8) Monocytes # (Auto) 0.8 x10^3/uL (0.0-1.1) Eosinophils # (Auto) 0.5 x10^3/uL (0.0-0.7) Basophils # (Auto) 0.1 x10^3/uL (0.0-0.2) Microbiology 10/26/20 Blood Culture - Preliminary, Resulted NO GROWTH AFTER 3 DAYS 10/26/20 Urine Culture - Final, Complete Medications Current Medications Sodium Chloride 1,000 ml @ 100 mls/hr 1X ONCE IV Last administered on 10/26/20at 11:28; Start 10/26/20 at 10:30; Stop 10/26/20 at 20:29; Status DC Ceftriaxone Sodium (Rocephin) 1 gm 1X ONCE IVP Last administered on 10/26/20at 11:28; Start 10/26/20 at 12:00; Stop 10/26/20 at 12:01; Status DC Pantoprazole Sodium (Protonix) 40 mg DAILYAC PO Last administered on 10/30/20at 09:20; Start 10/26/20 at 12:00 Polyethylene Glycol (miraLAX PACKET) 17 gm DAILY PO Last administered on 10/30/20at 09:21; Start 10/26/20 at 12:00 Bisacodyl (Dulcolax Tab) 5 mg PRN DAILY PRN PO CONSTIPATION; Start 10/26/20 at 12:00 Metoprolol Tartrate (Lopressor Vial) 5 mg PRN Q6HRS PRN IVP HYPERTENSION, 1ST CHOICE; Start 10/26/20 at 13:15; Stop 10/26/20 at 13:15; Status DC Labetalol HCl (Normodyne Iv Push) 20 mg PRN Q2HR PRN IVP HYPERTENSION; Start 10/26/20 at 13:15; Stop 10/26/20 at 13:20; Status DC Labetalol HCl (Normodyne Iv Push) 10 mg PRN Q2HR PRN IVP HYPERTENSION Last administered on 10/26/20at 13:27; Start 10/26/20 at 13:30; Stop 10/28/20 at 12:06; Status DC Insulin Human Lispro (HumaLOG) 0-9 UNITS TIDWMEALS SQ Last administered on 10/29/20at 17:04; Start 10/26/20 at 17:00 Dextrose (Dextrose 50%-Water Syringe) 12.5 gm PRN Q15MIN PRN IV SEE COMMENTS; Start 10/26/20 at 14:45; Stop 10/26/20 at 14:48; Status DC Sennosides (Senna) 17.2 mg PRN BID PRN PO CONSTIPATION; Start 10/26/20 at 14:45 Docusate Sodium (Colace) 100 mg PRN DAILY PRN PO HARD STOOLS; Start 10/26/20 at 14:45 Ondansetron HCl (Zofran) 4 mg PRN Q6HRS PRN IVP NAUSEA/VOMITING Last administered on 10/28/20at 21:09; Start 10/26/20 at 14:45 Dextrose (Dextrose 50%-Water Syringe) 12.5 gm PRN Q15MIN PRN IV SEE COMMENTS; Start 10/26/20 at 14:45 Acetaminophen (Tylenol) 650 mg PRN Q4HRS PRN PO TEMP OVER 100.4F OR MILD PAIN; Start 10/26/20 at 14:45 Sodium Chloride 1,000 ml @ 60 mls/hr [id number] IV Last administered on 10/29/20at 21:14; Start 10/26/20 at 17:30 Amlodipine Besylate (Norvasc) 5 mg DAILY PO Last administered on 10/29/20at 10:23; Start 10/27/20 at 13:00; Stop 10/29/20 at 12:33; Status DC Ceftriaxone Sodium (Rocephin) 1 gm Q24H IVP Last administered on 10/29/20at 16:52; Start 10/27/20 at 13:00 Lactobacillus Rhamnosus (Culturelle) 1 cap BID PO Last administered on 10/30/20at 09:20; Start 10/27/20 at 21:00 Aspirin (Ecotrin) 81 mg DAILYWBKFT PO Last administered on 10/30/20at 09:21; Start 10/27/20 at 17:00 Carvedilol (Coreg) 6.25 mg BIDWMEALS PO Last administered on 10/30/20at 09:21; Start 10/27/20 at 17:00 Labetalol HCl (Normodyne Iv Push) 20 mg PRN Q2HR PRN IVP HYPERTENSION; Start 10/27/20 at 16:30 Atorvastatin Calcium (Lipitor) 10 mg QHS PO Last administered on 10/29/20at 21:13; Start 10/28/20 at 21:00 Amlodipine Besylate (Norvasc) 5 mg [id number] PO Last administered on 10/30/20at 09:21; Start 10/29/20 at 16:00 Furosemide (Lasix) 60 mg 1X ONCE IVP Last administered on 10/29/20at 16:52; Start 10/29/20 at 16:00; Stop 10/29/20 at 16:04; Status DC Active Scripts Active Reported Aspir-Low (Aspirin) 81 Mg Tablet. 1 Tab PO DAILY Metformin Hcl Er (Metformin Hcl) 500 Mg Tab.er.24h 500 Mg PO BIDWMEALS Vitals/I & O Vital Sign - Last 24 Hours 10/29/20 10/29/20 10/29/20 10/29/20 10:22 10:23 11:15 15:19 Temp 98.1 98.0 98.1 98.0 Pulse 62 62 73 65 Resp 20 20 B/P (MAP) 170/73 170/73 154/48 (83) 158/81 (106) Pulse Ox 98 95 O2 Delivery Room Air Room Air 10/29/20 10/29/20 10/29/20 10/29/20 16:51 16:51 19:00 20:08 Temp 97.8 97.8 Pulse 65 65 73 Resp 16 B/P (MAP) 158/81 158/81 160/78 (105) Pulse Ox 98 O2 Delivery Room Air Room Air 10/29/20 10/30/20 10/30/20 10/30/20 23:00 03:05 07:00 09:21 Temp 97.7 98.3 97.6 97.7 98.3 97.6 Pulse 63 60 63 63 Resp 18 16 16 B/P (MAP) 155/78 (103) 147/67 (93) 158/73 (101) 158/73 Pulse Ox 98 98 97 O2 Delivery Room Air Room Air Room Air 10/30/20 09:21 Pulse 63 B/P (MAP) 158/73 Intake and Output 10/29/20 10/29/20 10/30/20 15:00 23:00 07:00 Intake Total 400 ml 200 ml Output Total 1200 ml Balance 400 ml 200 ml -1200 ml Justicifation of Admission Dx: Justifications for Admission: Justification of Admission Dx: Yes CHF: Hemodynamic Instability Acute Renal Failure: RF Can't Be Managed Outpt Chronic Renal Failure: Renail Failure RANDAL ENRIQUE MD Oct 30, 2020 10:11
[2020-10-30 10:27] LABS: ALBUMIN 2.7 g/dL (3.4-5.0); ALBUMIN/GLOBULIN RATIO 0.7 (1.0-1.7); CALCIUM 8.5 mg/dL (8.5-10.1); CREATININE 7.4 mg/dL (0.6-1.0); GFR 5.6; MAGNESIUM 1.8 mg/dL (1.8-2.4); PHOSPHORUS 6.1 mg/dL (2.6-4.7); POTASSIUM 4.9 mmol/L (3.5-5.1); TOTAL BILIRUBIN 0.3 mg/dL (0.2-1.0); TOTAL PROTEIN 6.4 g/dL (6.4-8.2)
[2020-10-30 11:00] VITALS: BP 152/66
[2020-10-30] MEDS: IV NORMAL SALINE 1000ML BAG 1,000 ML IV SCH ×2 (12:22→21:26)
[2020-10-30 14:00] VITALS: BP 151/75
--- NOTE | 2020-10-30 14:57 | PDOC ---
Renal-Progress Notes Subjective Notes Notes STILL FEELS SWOLLEN History of Present Illness Hx of present illness NOT IMPROVING Vitals Vitals Vital Signs Date Time Temp Pulse Resp B/P (MAP) Pulse Ox O2 Delivery O2 Flow Rate FiO2 10/30/20 11:00 97.9 63 18 152/66 (94) 98 Room Air 97.9 Weight Weight [ ] I.O. Intake and Output Intake and Output 10/30/20 07:00 Intake Total 600 ml Output Total 1200 ml Balance -600 ml Intake Oral 600 ml Output Urine Total 1200 ml Labs Labs Laboratory Tests Test 10/29/20 16:51 10/29/20 20:28 10/30/20 07:46 10/30/20 09:37 Glucose (Fingerstick) 171 mg/dL (70-99) 162 mg/dL (70-99) 125 mg/dL (70-99) White Blood Count 6.9 x10^3/uL (4.0-11.0) Red Blood Count 3.30 x10^6/uL (3.50-5.40) Hemoglobin 9.1 g/dL (12.0-15.5) Hematocrit 27.6 % (36.0-47.0) Mean Corpuscular Volume 84 fL (79-100) Mean Corpuscular Hemoglobin 28 pg (25-35) Mean Corpuscular Hemoglobin Concent 33 g/dL (31-37) Red Cell Distribution Width 15.4 % (11.5-14.5) Platelet Count 217 x10^3/uL (140-400) Neutrophils (%) (Auto) 53 % (31-73) Lymphocytes (%) (Auto) 27 % (24-48) Monocytes (%) (Auto) 11 % (0-9) Eosinophils (%) (Auto) 7 % (0-3) Basophils (%) (Auto) 2 % (0-3) Neutrophils # (Auto) 3.7 x10^3/uL (1.8-7.7) Lymphocytes # (Auto) 1.9 x10^3/uL (1.0-4.8) Monocytes # (Auto) 0.8 x10^3/uL (0.0-1.1) Eosinophils # (Auto) 0.5 x10^3/uL (0.0-0.7) Basophils # (Auto) 0.1 x10^3/uL (0.0-0.2) Sodium Level 135 mmol/L (136-145) Potassium Level 4.9 mmol/L (3.5-5.1) Chloride Level 105 mmol/L (98-107) Carbon Dioxide Level 17 mmol/L (21-32) Anion Gap 13 (6-14) Blood Urea Nitrogen 100 mg/dL (7-20) Creatinine 7.4 mg/dL (0.6-1.0) Estimated GFR (Cockcroft-Gault) 5.6 BUN/Creatinine Ratio 14 (6-20) Glucose Level 255 mg/dL (70-99) Calcium Level 8.5 mg/dL (8.5-10.1) Phosphorus Level 6.1 mg/dL (2.6-4.7) Magnesium Level 1.8 mg/dL (1.8-2.4) Total Bilirubin 0.3 mg/dL (0.2-1.0) Aspartate Amino Transf (AST/SGOT) 12 U/L (15-37) Alanine Aminotransferase (ALT/SGPT) 15 U/L (14-59) Alkaline Phosphatase 51 U/L (46-116) Total Protein 6.4 g/dL (6.4-8.2) Albumin 2.7 g/dL (3.4-5.0) Albumin/Globulin Ratio 0.7 (1.0-1.7) Test 10/30/20 11:56 Glucose (Fingerstick) 309 mg/dL (70-99) Micro Micro Microbiology 10/26/20 Blood Culture - Preliminary, Resulted NO GROWTH AFTER 4 DAYS 10/26/20 Urine Culture - Final, Complete Review of Systems Constitutional: yes: weakness, alert Ears/Nose/Throat: Yes: no symptom reported Eyes: Yes: no symptom reported Pulmonary: Yes no symptom reported Cardiovascular: Yes no symptom reported Gastrointestional: Yes: no symptom reported Genitourinary: Yes: no symptom reported Musculoskeletal: Yes: no symptom reported Skin: Yes no symptom reported Psychiatric/Neurological: Yes: no symptom reported Endocrine: Yes: no symptom reported Physical Exam General Appearance: no apparent distress Skin: warm Respiratory: bilateral CTA Heart: S1S2 Abdomen: soft, bowel sounds present Extremities: pulses present, no edema Neurology: alert, oriented, follow commands Musculoskeletal: Osteoarthritis Assessment Assessment IMP HYPERVOLEMIA-STABLE REESE-ATN-CR NOT GETTING ANY BETTER HYPONATREMIA HYPERKALEMIA UREMIA ANEMIA OF CKD ELEVATED LIPASE-PROB DUE TO REESE LABILE HTN DM II UTI PLAN HYDRATION AVOID NEPHROTOXINS ANTIBIOTICS CONTROL BP IMAGING DONE NOTED ABOVE RENAL BX FOR SATURDAY RENAL SCAN-C/W ATN 24 URINE STUDY PENDING SEROLOGY NEED TO START DIALYSIS WILL ASK IR TO PLACE TEMP LINE TOMORROW WILL ALSO ASK IR TO PERFORM RENAL BIOPSY WILL HOLD ASA START RENAL MVI START PO4 BINDERS D/W PT SHE IS AGREEABLE TO PLAN WILL FOLLOW MEI YEAGER MD Oct 30, 2020 14:57
[2020-10-30] MEDS: SEVELAMER CARBONATE 800 MG TABLET. PO SCH (16:07)
[2020-10-30] MEDS: FOLIC/VIT B COMP W-C (RENAL) TABLET. PO SCH (16:07)
[2020-10-30] MEDS: cefTRIAXone IV Push 1 GM VIAL. IVP SCH (16:08)
[2020-10-30 19:00] VITALS: BP 144/61
[2020-10-30] MEDS ORDERED: DARBEPOETIN ALFA 60 MCG/0.3 ML DISP.SYRIN. SQ SCH (21:00)
[2020-10-30] MEDS: ATORVASTATIN CALCIUM 10 MG TABLET. PO SCH (21:23)
[2020-10-30 23:00] VITALS: BP 157/76
[2020-10-31 03:05] VITALS: BP 164/84
[2020-10-31 07:00] VITALS: BP 157/80
[2020-10-31] MEDS: PANTOPRAZOLE 40 MG TABLET.DR. PO SCH (07:30)
[2020-10-31] MEDS: INSULIN LISPRO 300 UNITS/3 ML VIAL. SQ SCH ×3 (08:00→17:00)
[2020-10-31] MEDS: CARVEDILOL 6.25 MG TABLET. PO SCH ×2 (08:00→16:59)
[2020-10-31] MEDS: SEVELAMER CARBONATE 800 MG TABLET. PO SCH ×3 (08:00→16:59)
[2020-10-31 08:34] LABS: HEMATOCRIT 28.3 % (36.0-47.0); HEMOGLOBIN 9.3 g/dL (12.0-15.5); RED BLOOD COUNT 3.39 x10^6/uL (3.50-5.40); RED CELL DISTRIBUTION WIDTH 15.6 % (11.5-14.5); WHITE BLOOD COUNT 8.4 x10^3/uL (4.0-11.0)
[2020-10-31] MEDS: POLYETHYLENE GLYCOL 3350 17 GM PACKET. PO SCH (09:00)
[2020-10-31] MEDS: LACTOBACILLUS RHAMNOSUS GG 1 CAPSULE. PO SCH ×2 (09:00→21:19)
[2020-10-31] MEDS: FOLIC/VIT B COMP W-C (RENAL) TABLET. PO SCH (09:00)
[2020-10-31 09:06] LABS: ALBUMIN 2.8 g/dL (3.4-5.0); CALCIUM 8.7 mg/dL (8.5-10.1); CREATININE 7.4 mg/dL (0.6-1.0); GFR 5.6; POTASSIUM 5.1 mmol/L (3.5-5.1)
--- NOTE | 2020-10-31 09:52 | PDOC ---
PROGRESS NOTES Date of Service: DATE: 10/31/20 TIME: 09:48 Chief Complaint Chief Complaint Impression Assessment/Plan Acute hypertensive emergency Acute renal failure remote history of a cyst drainage percutaneously done in February 2019. had a nephrostomy tube that was placed but that was removed by urology around that time. hyponatremia hyperkalemia Normocytic anemia Elevated lipase Cholelithiasis. diabetes stress test showed mixed perfusion defect involving the mid to distal anterior and anterolateral avalos consistent with small infarct and moderate amount of ischemia. 2018 Mid to distal anterior wall hypokinesis with ejection fraction calculated at 50%. on echo Uremia Anemia of chronic inflammation elevated lipase due to renal failure Diabetes mellitus type 2 RENAL BX scheduled for 10/31/2020 RENAL SCAN done and consistent with ATN plan Follow nephrology energy sales consultant recommendations R ISS and Accu-Cheks IV labetalol as needed for systolic blood pressure goals less than 180 Heparin for DVT prophylaxis ADA diet Full code Discussed with RN and SW Disposition inpatient management Surrogate decision maker is the consider renal bx if cr not improved cardiology consult 30 cr remains elevated at 7.1 , 700cc urine output 10-28 131 STABLE BUT RENAL FUNCTION NOT RECOVERING WELL CR 7.4 2-1 no acute events reported overnight, case discussed with nursing staff patient in no acute distress no complaints during my visit 35 min pt exam, chart review, > 50% of time spent with exam, chart review, pt care coordination Justifications for Admission Justifications for Admission Other Justification ACUTE SEVERE RENAL FAILURE, RTN History of Present Illness History of Present Illness Chief Complaint: Chief Complain: dizziness and weakness History of Present Illness: HPI: Patient is a 60-year-old female with past medical history of diabetes mellitus type 2 who comes in with complaints of dizziness and weakness in her lower extremities. She also had some right-sided flank pain in which she had a injection trigger point last week and said that her pain improved slightly with that. However, she has been dealing with this dizziness for the past couple of weeks. Patient denies any fevers, chills, rashes, chest pain or shortness of breath or abdominal pain or dysuria. Patient does have a history of diabetes which she takes Metformin as she said that she takes other medications in which she said that she does not feel good taking them. Patient did have some outpatient lab work done at that is why she came because they stated that she had some renal failure. Patient does also have a remote history of a cyst drainage percutaneously done in February 2019. She also had a nephrostomy tube that was placed but that was removed by urology around that time. Denies kidney stones, dysuria, hematuria or incontinence or frequency. Of note, patient was recently admitted to the hospital for treatment for pneumonia and she was taking Levaquin at that time. Past Medical/Surgical History: PMH/PSH: Past Medical History: Diabetes-Type II, DECREASED L KIDNEY FUNCTION Past Surgical History: cyst on L kidney status post drainage in 2018 Allergies: Allergies: Coded Allergies: No Known Drug Allergies (Unverified , 03/14/19) Family History: Family History: Reviewed with no relevant findings Social History: Social History: Smoking Status: Former Smoker Alcohol Use: None Vitals Vitals Vital Signs Date Time Temp Pulse Resp B/P (MAP) Pulse Ox O2 Delivery O2 Flow Rate FiO2 10/31/20 07:00 97.5 68 18 157/80 (105) 97 Room Air 97.5 Physical Exam Physical Exam GEN: No apparent distress. Alert and oriented HEENT: Normal cephalic, atraumatic, external auditory canals are patent EYES: Extraocular muscles are intact, pupil are equally round and reactive to light and accommodation MUSCULOSKELETAL: Well developed , well nourished, good range of motion ENDOCRINE: No thyromegaly was palpated LYMPHATICS: No cervical chain or axillary nodes were noted HEMATOPOIETIC: No bruising NECK: Supple, no JVD, no thyromegaly was noted LUNGS: Clear to auscultation in all lung guerrero without rhonchi or wheezing HEART: RRR, S!, S2 present. Peripheral pulses intact, no obvious murmurs noted ABDOMEN: Soft, nontender. Positive bowel sounds, no organomegaly, normal bowel sounds EXTREMITIES: Without clubbing, cyanosis, or edema. Pedal pulses intact. Negative Homans sign NEUROLOGIC: Normal speech and tone. A&O x 3, moves all extremities, no obvious focal deficits PSYCHIATRIC: Normal affect, normal mood. Stable SKIN: No ulcerations or rashes, good skin turgor, no jaundice VASCULAR: Good capillary refill, neurovascular bundle appears to be intact General: Alert, Oriented X3, Cooperative, No acute distress Heart: Regular rate (SR), Normal S1, Normal S2, No murmurs Lungs: Clear Abdomen: Normal bowel sounds, Soft, No tenderness Extremities: No cyanosis, No edema Skin: No breakdown, No significant lesion Labs LABS Laboratory Tests Test 10/30/20 11:56 10/30/20 17:06 10/30/20 20:43 10/31/20 07:33 Glucose (Fingerstick) 309 mg/dL (70-99) 156 mg/dL (70-99) 156 mg/dL (70-99) 151 mg/dL (70-99) Test 10/31/20 08:10 White Blood Count 8.4 x10^3/uL (4.0-11.0) Red Blood Count 3.39 x10^6/uL (3.50-5.40) Hemoglobin 9.3 g/dL (12.0-15.5) Hematocrit 28.3 % (36.0-47.0) Mean Corpuscular Volume 83 fL (79-100) Mean Corpuscular Hemoglobin 27 pg (25-35) Mean Corpuscular Hemoglobin Concent 33 g/dL (31-37) Red Cell Distribution Width 15.6 % (11.5-14.5) Platelet Count 222 x10^3/uL (140-400) Sodium Level 138 mmol/L (136-145) Potassium Level 5.1 mmol/L (3.5-5.1) Chloride Level 106 mmol/L (98-107) Carbon Dioxide Level 17 mmol/L (21-32) Anion Gap 15 (6-14) Blood Urea Nitrogen 91 mg/dL (7-20) Creatinine 7.4 mg/dL (0.6-1.0) Estimated GFR (Cockcroft-Gault) 5.6 Glucose Level 149 mg/dL (70-99) Calcium Level 8.7 mg/dL (8.5-10.1) Phosphorus Level 6.0 mg/dL (2.6-4.7) Albumin 2.8 g/dL (3.4-5.0) Assessment and Plan Assessmemt and Plan Problems Medical Problems: (1) Acute pancreatitis Status: Acute (2) ARF (acute renal failure) Status: Acute Comment Review of Relevant I have reviewed the following items misha (where applicable) has been applied. Labs Laboratory Tests Test 10/29/20 16:51 10/29/20 20:28 10/30/20 07:46 10/30/20 09:37 Glucose (Fingerstick) 171 mg/dL (70-99) 162 mg/dL (70-99) 125 mg/dL (70-99) White Blood Count 6.9 x10^3/uL (4.0-11.0) Red Blood Count 3.30 x10^6/uL (3.50-5.40) Hemoglobin 9.1 g/dL (12.0-15.5) Hematocrit 27.6 % (36.0-47.0) Mean Corpuscular Volume 84 fL (79-100) Mean Corpuscular Hemoglobin 28 pg (25-35) Mean Corpuscular Hemoglobin Concent 33 g/dL (31-37) Red Cell Distribution Width 15.4 % (11.5-14.5) Platelet Count 217 x10^3/uL (140-400) Neutrophils (%) (Auto) 53 % (31-73) Lymphocytes (%) (Auto) 27 % (24-48) Monocytes (%) (Auto) 11 % (0-9) Eosinophils (%) (Auto) 7 % (0-3) Basophils (%) (Auto) 2 % (0-3) Neutrophils # (Auto) 3.7 x10^3/uL (1.8-7.7) Lymphocytes # (Auto) 1.9 x10^3/uL (1.0-4.8) Monocytes # (Auto) 0.8 x10^3/uL (0.0-1.1) Eosinophils # (Auto) 0.5 x10^3/uL (0.0-0.7) Basophils # (Auto) 0.1 x10^3/uL (0.0-0.2) Sodium Level 135 mmol/L (136-145) Potassium Level 4.9 mmol/L (3.5-5.1) Chloride Level 105 mmol/L (98-107) Carbon Dioxide Level 17 mmol/L (21-32) Anion Gap 13 (6-14) Blood Urea Nitrogen 100 mg/dL (7-20) Creatinine 7.4 mg/dL (0.6-1.0) Estimated GFR (Cockcroft-Gault) 5.6 BUN/Creatinine Ratio 14 (6-20) Glucose Level 255 mg/dL (70-99) Calcium Level 8.5 mg/dL (8.5-10.1) Phosphorus Level 6.1 mg/dL (2.6-4.7) Magnesium Level 1.8 mg/dL (1.8-2.4) Total Bilirubin 0.3 mg/dL (0.2-1.0) Aspartate Amino Transf (AST/SGOT) 12 U/L (15-37) Alanine Aminotransferase (ALT/SGPT) 15 U/L (14-59) Alkaline Phosphatase 51 U/L (46-116) Total Protein 6.4 g/dL (6.4-8.2) Albumin 2.7 g/dL (3.4-5.0) Albumin/Globulin Ratio 0.7 (1.0-1.7) Test 10/30/20 11:56 10/30/20 17:06 10/30/20 20:43 10/31/20 07:33 Glucose (Fingerstick) 309 mg/dL (70-99) 156 mg/dL (70-99) 156 mg/dL (70-99) 151 mg/dL (70-99) Test 10/31/20 08:10 White Blood Count 8.4 x10^3/uL (4.0-11.0) Red Blood Count 3.39 x10^6/uL (3.50-5.40) Hemoglobin 9.3 g/dL (12.0-15.5) Hematocrit 28.3 % (36.0-47.0) Mean Corpuscular Volume 83 fL (79-100) Mean Corpuscular Hemoglobin 27 pg (25-35) Mean Corpuscular Hemoglobin Concent 33 g/dL (31-37) Red Cell Distribution Width 15.6 % (11.5-14.5) Platelet Count 222 x10^3/uL (140-400) Sodium Level 138 mmol/L (136-145) Potassium Level 5.1 mmol/L (3.5-5.1) Chloride Level 106 mmol/L (98-107) Carbon Dioxide Level 17 mmol/L (21-32) Anion Gap 15 (6-14) Blood Urea Nitrogen 91 mg/dL (7-20) Creatinine 7.4 mg/dL (0.6-1.0) Estimated GFR (Cockcroft-Gault) 5.6 Glucose Level 149 mg/dL (70-99) Calcium Level 8.7 mg/dL (8.5-10.1) Phosphorus Level 6.0 mg/dL (2.6-4.7) Albumin 2.8 g/dL (3.4-5.0) Laboratory Tests Test 10/30/20 11:56 10/30/20 17:06 10/30/20 20:43 10/31/20 07:33 Glucose (Fingerstick) 309 mg/dL (70-99) 156 mg/dL (70-99) 156 mg/dL (70-99) 151 mg/dL (70-99) Test 10/31/20 08:10 White Blood Count 8.4 x10^3/uL (4.0-11.0) Red Blood Count 3.39 x10^6/uL (3.50-5.40) Hemoglobin 9.3 g/dL (12.0-15.5) Hematocrit 28.3 % (36.0-47.0) Mean Corpuscular Volume 83 fL (79-100) Mean Corpuscular Hemoglobin 27 pg (25-35) Mean Corpuscular Hemoglobin Concent 33 g/dL (31-37) Red Cell Distribution Width 15.6 % (11.5-14.5) Platelet Count 222 x10^3/uL (140-400) Sodium Level 138 mmol/L (136-145) Potassium Level 5.1 mmol/L (3.5-5.1) Chloride Level 106 mmol/L (98-107) Carbon Dioxide Level 17 mmol/L (21-32) Anion Gap 15 (6-14) Blood Urea Nitrogen 91 mg/dL (7-20) Creatinine 7.4 mg/dL (0.6-1.0) Estimated GFR (Cockcroft-Gault) 5.6 Glucose Level 149 mg/dL (70-99) Calcium Level 8.7 mg/dL (8.5-10.1) Phosphorus Level 6.0 mg/dL (2.6-4.7) Albumin 2.8 g/dL (3.4-5.0) Microbiology 10/26/20 Blood Culture - Preliminary, Resulted NO GROWTH AFTER 4 DAYS 10/26/20 Urine Culture - Final, Complete Medications Current Medications Sodium Chloride 1,000 ml @ 100 mls/hr 1X ONCE IV Last administered on 10/26/20at 11:28; Start 10/26/20 at 10:30; Stop 10/26/20 at 20:29; Status DC Ceftriaxone Sodium (Rocephin) 1 gm 1X ONCE IVP Last administered on 10/26/20at 11:28; Start 10/26/20 at 12:00; Stop 10/26/20 at 12:01; Status DC Pantoprazole Sodium (Protonix) 40 mg DAILYAC PO Last administered on 10/30/20at 09:20; Start 10/26/20 at 12:00 Polyethylene Glycol (miraLAX PACKET) 17 gm DAILY PO Last administered on 10/30/20at 09:21; Start 10/26/20 at 12:00 Bisacodyl (Dulcolax Tab) 5 mg PRN DAILY PRN PO CONSTIPATION; Start 10/26/20 at 12:00 Metoprolol Tartrate (Lopressor Vial) 5 mg PRN Q6HRS PRN IVP HYPERTENSION, 1ST CHOICE; Start 10/26/20 at 13:15; Stop 10/26/20 at 13:15; Status DC Labetalol HCl (Normodyne Iv Push) 20 mg PRN Q2HR PRN IVP HYPERTENSION; Start 10/26/20 at 13:15; Stop 10/26/20 at 13:20; Status DC Labetalol HCl (Normodyne Iv Push) 10 mg PRN Q2HR PRN IVP HYPERTENSION Last administered on 10/26/20at 13:27; Start 10/26/20 at 13:30; Stop 10/28/20 at 12:06; Status DC Insulin Human Lispro (HumaLOG) 0-9 UNITS TIDWMEALS SQ Last administered on 10/30/20at 17:27; Start 10/26/20 at 17:00 Dextrose (Dextrose 50%-Water Syringe) 12.5 gm PRN Q15MIN PRN IV SEE COMMENTS; Start 10/26/20 at 14:45; Stop 10/26/20 at 14:48; Status DC Sennosides (Senna) 17.2 mg PRN BID PRN PO CONSTIPATION; Start 10/26/20 at 14:45 Docusate Sodium (Colace) 100 mg PRN DAILY PRN PO HARD STOOLS; Start 10/26/20 at 14:45 Ondansetron HCl (Zofran) 4 mg PRN Q6HRS PRN IVP NAUSEA/VOMITING Last administered on 10/28/20 21:09; Start 10/26/20 at 14:45 Dextrose (Dextrose 50%-Water Syringe) 12.5 gm PRN Q15MIN PRN IV SEE COMMENTS; Start 10/26/20 at 14:45 Acetaminophen (Tylenol) 650 mg PRN Q4HRS PRN PO TEMP OVER 100.4F OR MILD PAIN; Start 10/26/20 at 14:45 Sodium Chloride 1,000 ml @ 60 mls/hr [id number] IV Last administered on 10/30/20 21:26; Start 10/26/20 at 17:30 Amlodipine Besylate (Norvasc) 5 mg DAILY PO Last administered on 10/29/20at 10:23; Start 10/27/20 at 13:00; Stop 10/29/20 at 12:33; Status DC Ceftriaxone Sodium (Rocephin) 1 gm Q24H IVP Last administered on 10/30/20at 16:08; Start 10/27/20 at 13:00 Lactobacillus Rhamnosus (Culturelle) 1 cap BID PO Last administered on 10/30/20 21:23; Start 10/27/20 at 21:00 Aspirin (Ecotrin) 81 mg DAILYWBKFT PO Last administered on 10/30/20at 09:21; S tart 10/27/20 at 17:00; Stop 10/30/20 at 14:59; Status DC Carvedilol (Coreg) 6.25 mg BIDWMEALS PO Last administered on 10/30/20at 16:08; Start 10/27/20 at 17:00 Labetalol HCl (Normodyne Iv Push) 20 mg PRN Q2HR PRN IVP HYPERTENSION; Start 10/27/20 at 16:30 Atorvastatin Calcium (Lipitor) 10 mg QHS PO Last administered on 10/30/20at 21:23; Start 10/28/20 at 21:00 Amlodipine Besylate (Norvasc) 5 mg [id number] PO Last administered on 10/30/20 16:08; Start 10/29/20 at 16:00 Furosemide (Lasix) 60 mg 1X ONCE IVP Last administered on 10/29/20at 16:52; Start 10/29/20 at 16:00; Stop 10/29/20 at 16:04; Status DC Sevelamer Carbonate (Renvela) 800 mg TIDWMEALS PO Last administered on 10/30/20at 16:07; Start 10/30/20 at 17:00 Vitamin B Complex/ Vitamin C (Sidra-Evens) 1 tab DAILY PO Last administered on 10/30/20at 16:07; Start 10/30/20 at 17:00 Darbepoetin Storm (ARANESP for DIALYSIS PTS) 60 mcg WEEKLYHS SQ Last administered on 10/30/20at 21:25; Start 10/30/20 at 21:00 Active Scripts Active Reported Aspir-Low (Aspirin) 81 Mg Tablet. 1 Tab PO DAILY Metformin Hcl Er (Metformin Hcl) 500 Mg Tab.er.24h 500 Mg PO BIDWMEALS Vitals/I & O Vital Sign - Last 24 Hours 10/30/20 10/30/20 10/30/20 10/30/20 11:00 14:00 16:08 16:08 Temp 97.9 97.8 97.9 97.8 Pulse 63 69 69 69 Resp 18 18 B/P (MAP) 152/66 (94) 151/75 (100) 151/75 151/75 Pulse Ox 98 98 O2 Delivery Room Air Room Air 10/30/20 10/30/20 10/30/20 10/31/20 19:00 20:23 23:00 03:05 Temp 98.0 97.7 98.2 98.0 97.7 98.2 Pulse 67 64 71 Resp 16 16 16 B/P (MAP) 144/61 (88) 157/76 (103) 164/84 (110) Pulse Ox 98 98 98 O2 Delivery Room Air Room Air Room Air Room Air 10/31/20 07:00 Temp 97.5 97.5 Pulse 68 Resp 18 B/P (MAP) 157/80 (105) Pulse Ox 97 O2 Delivery Room Air Intake and Output 10/30/20 10/30/20 10/31/20 15:00 23:00 07:00 Output Total 400 ml Balance -400 ml Justicifation of Admission Dx: Justifications for Admission: Justification of Admission Dx: Yes CHF: Hemodynamic Instability Acute Renal Failure: RF Can't Be Managed Outpt Chronic Renal Failure: Renail Failure RENARD DUENAS MD Oct 31, 2020 09:52
--- NOTE | 2020-10-31 10:00 | PDOC ---
DATE OF SERVICE DATE: 10/31/20 TIME: 09:59 SUBJECTIVE ROS Starting HD today (Ac vs Chronic), Temp HDc placed , S/P renal Bx as well Reports of puffiness around eyes OBJECTIVE Vital Signs Vital Signs Date Time Temp Pulse Resp B/P (MAP) Pulse Ox O2 Delivery O2 Flow Rate FiO2 10/31/20 07:00 97.5 68 18 157/80 (105) 97 Room Air 97.5 I & 0 Intake and Output 10/31/20 07:00 Output Total 400 ml Balance -400 ml Output Urine Total 400 ml # Voids 2 PHYSICAL EXAM Physical Exam General Appearance: no apparent distress HEEN puffiness around both eyes Skin: warm Respiratory: bilateral CTA Heart: S1S2 Abdomen: soft, bowel sounds present Extremities: pulses present, no edema Neurology: alert, oriented, follow commands Musculoskeletal: Osteoarthritis DIAGNOSIS/ASSESSMENT Assessment & Plan REESE-ATN/ per Nuc med scan , No improvement in renal function, dialysis today, seen during 1 st treatment today, No complaints. Discussed plan with Deya Rao Temp HDC CT scan Interval resolution of previously seen left hydroureteronephrosis with mild left renal atrophy. No hydronephrosis or nephrolithiasis is seen. Lt Hydtoureteronephrosis - resolved per CT. history of nephrostomy tube in 2019 at [facility] . Some mention of r/o malignancy by Urology at the time and recommended fu. Not sure if she is following with Urology HyperKalemia - resolved Anemia - stable Labile HTN DM II UTI COMMENT/RELEVANT DATA Meds Current Medications Medications (Trade) Dose Ordered Sig/Nilesh Start Time Stop Time Status Last Admin Dose Admin Acetaminophen (Tylenol) 650 mg PRN Q4HRS PRN 10/26/20 14:45 Amlodipine Besylate (Norvasc) 5 mg [id number] 10/29/20 16:00 10/30/20 16:08 5 MG Aspirin (Ecotrin) 81 mg DAILYWBKFT 10/27/20 17:00 10/30/20 14:59 DC 10/30/20 09:21 81 MG Atorvastatin Calcium (Lipitor) 10 mg QHS 10/28/20 21:00 10/30/20 21:23 10 MG Bisacodyl (Dulcolax Tab) 5 mg PRN DAILY PRN 10/26/20 12:00 Carvedilol (Coreg) 6.25 mg BIDWMEALS 10/27/20 17:00 10/30/20 16:08 6.25 MG Ceftriaxone Sodium (Rocephin) 1 gm Q24H 10/27/20 13:00 10/30/20 16:08 1 GM Darbepoetin Storm (ARANESP for DIALYSIS PTS) 60 mcg WEEKLYHS 10/30/20 21:00 10/30/20 21:25 60 MCG Dextrose (Dextrose 50%-Water Syringe) 12.5 gm PRN Q15MIN PRN 10/26/20 14:45 Docusate Sodium (Colace) 100 mg PRN DAILY PRN 10/26/20 14:45 Furosemide (Lasix) 60 mg 1X ONCE 10/29/20 16:00 10/29/20 16:04 DC 10/29/20 16:52 60 MG Insulin Human Lispro (HumaLOG) 0-9 UNITS TIDWMEALS 10/26/20 17:00 10/30/20 17:27 4 UNITS Labetalol HCl (Normodyne Iv Push) 20 mg PRN Q2HR PRN 10/27/20 16:30 Lactobacillus Rhamnosus (Culturelle) 1 cap BID 10/27/20 21:00 10/30/20 21:23 1 CAP Metoprolol Tartrate (Lopressor Vial) 5 mg PRN Q6HRS PRN 10/26/20 13:15 10/26/20 13:15 DC Ondansetron HCl (Zofran) 4 mg PRN Q6HRS PRN 10/26/20 14:45 10/28/20 21:09 4 MG Pantoprazole Sodium (Protonix) 40 mg DAILYAC 10/26/20 12:00 10/30/20 09:20 40 MG Polyethylene Glycol (miraLAX PACKET) 17 gm DAILY 10/26/20 12:00 10/30/20 09:21 17 GM Sennosides (Senna) 17.2 mg PRN BID PRN 10/26/20 14:45 Sevelamer Carbonate (Renvela) 800 mg TIDWMEALS 10/30/20 17:00 10/30/20 16:07 800 MG Sodium Chloride 1,000 ml @ 60 mls/hr [id number] 10/26/20 17:30 10/30/20 21:26 60 MLS/HR Vitamin B Complex/ Vitamin C (Sidra-Evens) 1 tab DAILY 10/30/20 17:00 10/30/20 16:07 1 TAB Lab Laboratory Tests Test 10/30/20 11:56 10/30/20 17:06 10/30/20 20:43 10/31/20 07:33 Glucose (Fingerstick) 309 mg/dL (70-99) 156 mg/dL (70-99) 156 mg/dL (70-99) 151 mg/dL (70-99) Test 10/31/20 08:10 White Blood Count 8.4 x10^3/uL (4.0-11.0) Red Blood Count 3.39 x10^6/uL (3.50-5.40) Hemoglobin 9.3 g/dL (12.0-15.5) Hematocrit 28.3 % (36.0-47.0) Mean Corpuscular Volume 83 fL (79-100) Mean Corpuscular Hemoglobin 27 pg (25-35) Mean Corpuscular Hemoglobin Concent 33 g/dL (31-37) Red Cell Distribution Width 15.6 % (11.5-14.5) Platelet Count 222 x10^3/uL (140-400) Sodium Level 138 mmol/L (136-145) Potassium Level 5.1 mmol/L (3.5-5.1) Chloride Level 106 mmol/L (98-107) Carbon Dioxide Level 17 mmol/L (21-32) Anion Gap 15 (6-14) Blood Urea Nitrogen 91 mg/dL (7-20) Creatinine 7.4 mg/dL (0.6-1.0) Estimated GFR (Cockcroft-Gault) 5.6 Glucose Level 149 mg/dL (70-99) Calcium Level 8.7 mg/dL (8.5-10.1) Phosphorus Level 6.0 mg/dL (2.6-4.7) Albumin 2.8 g/dL (3.4-5.0) Results All relevant outside records, renal labs, imaging studies, telemetry/EKG's were reviewed. Justicifation of Admission Dx: Justifications for Admission: Justification of Admission Dx: Yes CHF: Hemodynamic Instability Acute Renal Failure: RF Can't Be Managed Outpt Chronic Renal Failure: Renail Failure JOLYNN CHOI MD Oct 31, 2020 10:00
--- NOTE | 2020-10-31 10:50 | PDOC ---
Date of Service: DATE: 10/31/20 TIME: 10:46 Subjective: Subjective: Tolerating diet though NPO today. Denies abd pain. Objective: Vital Signs: Vital Signs Date Time Temp Pulse Resp B/P (MAP) Pulse Ox O2 Delivery O2 Flow Rate FiO2 10/31/20 07:00 97.5 68 18 157/80 (105) 97 Room Air 97.5 Labs: Laboratory Tests Test 10/30/20 11:56 10/30/20 17:06 10/30/20 20:43 10/31/20 07:33 Glucose (Fingerstick) 309 mg/dL 156 mg/dL 156 mg/dL 151 mg/dL Test 10/31/20 08:10 10/31/20 08:15 White Blood Count 8.4 x10^3/uL Red Blood Count 3.39 x10^6/uL Hemoglobin 9.3 g/dL Hematocrit 28.3 % Mean Corpuscular Volume 83 fL Mean Corpuscular Hemoglobin 27 pg Mean Corpuscular Hemoglobin Concent 33 g/dL Red Cell Distribution Width 15.6 % Platelet Count 222 x10^3/uL Prothrombin Time 13.0 SEC Prothromb Time International Ratio 1.0 Sodium Level 138 mmol/L Potassium Level 5.1 mmol/L Chloride Level 106 mmol/L Carbon Dioxide Level 17 mmol/L Anion Gap 15 Blood Urea Nitrogen 91 mg/dL Creatinine 7.4 mg/dL Estimated GFR (Cockcroft-Gault) 5.6 Glucose Level 149 mg/dL Calcium Level 8.7 mg/dL Phosphorus Level 6.0 mg/dL Albumin 2.8 g/dL Hepatitis B Surface Antigen Nonreactive Hepatitis B Core Total Antibody Nonreactive SARS-CoV-2 Antigen (Rapid) Negative BLOOD CULTURE Preliminary NO GROWTH AFTER 4 DAYS Imaging: Echo 10/28 <Conclusion> The left ventricle is normal size. The left ventricular systolic function is normal and the ejection fraction is within normal range. The Ejection Fraction is 50-55%. There is normal LV segmental wall motion. Doppler and Color Flow revealed trace aortic regurgitation. There is no significant aortic valvular stenosis. Doppler and Color-flow revealed trace mitral regurgitation. Doppler and Color Flow revealed trace tricuspid regurgitation with an estimated PAP of 27 mmHg. Renogram IMPRESSION: There is abnormal cortical retention of the right kidney without demonstrable clearance. There is abnormal mild clearance of the left kidney. No obstruction was seen on recent CT. Etiology may be acute tubular necrosis. PE: GEN: NAD LUNGS: CTAB HEART: RRR ABD: S/ND/NT EXTREMITY: face looks puffy NEURO/PSYCH: A & O 3 - more quiet today A/P: REESE Anemia (normal iron) GERD - on PPI Rapid COVID negative 10/31 -- Plans for renal biopsy and temp HD cath placement. Outpt scopes. Justicifation of Admission Dx: Justifications for Admission: Justification of Admission Dx: Yes CHF: Hemodynamic Instability Acute Renal Failure: RF Can't Be Managed Outpt Chronic Renal Failure: Renail Failure KIRTI JIMENEZ Oct 31, 2020 10:50
[2020-10-31 11:20] VITALS: BP 143/86
[2020-10-31] MEDS ORDERED: LIDOCAINE WITH 8.4% SOD BICARB 3 ML DISP.SYRIN. ONE (11:23)
[2020-10-31] MEDS ORDERED: LIDOCAINE WITH 8.4% SOD BICARB 3 ML DISP.SYRIN. INJ ONE (11:30)
[2020-10-31 11:40] LABS: CALCIUM PTH 8.3 mg/dL (8.7-10.3); PTH INTACT 103 pg/mL (15-65)
--- NOTE | 2020-10-31 11:43 | NUR ---
SW following. Discussed with RN, pt from home with , room air, renal diet. PT/OT recommending home. Pt having a renal biopsy today and a temp HD cath placed. SW will continue to follow.
[2020-10-31] MEDS ORDERED: diphenhydrAMINE 50 MG/ML VIAL IV PRN ×2 (12:45)
[2020-10-31] MEDS ORDERED: DIALYSIS PATIENT. MC PRN (12:45)
[2020-10-31] MEDS ORDERED: IV NORMAL SALINE 1000ML BAG 1,000 ML IV PRN ×2 (12:45)
--- NOTE | 2020-10-31 12:56 | RAD ---
Procedure: Temporary hemodialysis catheter placement under fluoroscopy Clinical Indication: Renal failure Fluoro Time: 0.2 minutes dose area product: 1 Gycm2 Contrast: None Sterility: All elements of maximal sterile barrier technique including the use of a cap, mask, sterile gown, sterile gloves, large sterile sheet, appropriate hand hygiene, and 2% chlorhexidine for cutaneous antisepsis (or acceptable alternative antiseptic per current guidelines) were followed for this procedure. Consent: The procedure was explained in its entirety to the patient or the patients designated collections representative by a member of the treatment team, including a discussion of the risks, benefits and commonly accepted alternatives to the procedure, as well as the expected consequences of no therapy whatsoever. Discussion of the risks included, but was not limited to, those that are most frequent and those that are rare but possibly severe or life-threatening, as well as the possibility of unforeseen complications. Technique and Findings: Following informed consent, the patient was prepped and draped in the usual sterile fashion. Ultrasound interrogation of the right neck revealed patency and compressibility of the right internal jugular vein. A 21-gauge micropuncture needle was used to gain access to this vein after 1% Lidocaine was used to achieve local anesthesia. A hardcopy ultrasound image was recorded. The needle was exchanged over a wire for serial dilators followed by a 20 cm temporary hemodialysis catheter which was deployed under fluoroscopic guidance such that the distal tip resided in the mid right atrium. The catheter flow rates were assessed manually and found to be excellent. The catheter was then flushed, packed with Heparin, capped, and sutured to the skin. Complications: No immediate Impression: 1. Ultrasound and fluoroscopic guided placement of a temporary hemodialysis catheter
[2020-10-31 13:11] LABS: UR PROTEIN 13.4 mg/dL (Not Estab.)
[2020-10-31 15:29] VITALS: BP 156/82
[2020-10-31] MEDS: cefTRIAXone IV Push 1 GM VIAL. IVP SCH (17:00)
[2020-10-31 19:00] VITALS: BP 138/73
[2020-10-31] MEDS: DOCUSATE SODIUM 100 MG CAPSULE. PO PRN (21:18)
[2020-10-31] MEDS: ATORVASTATIN CALCIUM 10 MG TABLET. PO SCH (21:19)
[2020-10-31] MEDS: IV NORMAL SALINE 1000ML BAG 1,000 ML IV SCH (22:08)
[2020-10-31 23:00] VITALS: BP 139/81
[2020-11-01 03:00] VITALS: BP 140/75
[2020-11-01 07:00] VITALS: BP 154/91
[2020-11-01 07:44] LABS: CALCIUM 8.6 mg/dL (8.5-10.1); CREATININE 4.8 mg/dL (0.6-1.0); GFR 9.2; POTASSIUM 4.3 mmol/L (3.5-5.1)
[2020-11-01] MEDS: POLYETHYLENE GLYCOL 3350 17 GM PACKET. PO SCH (09:00)
[2020-11-01] MEDS: LACTOBACILLUS RHAMNOSUS GG 1 CAPSULE. PO SCH ×2 (09:31→21:13)
[2020-11-01] MEDS: FOLIC/VIT B COMP W-C (RENAL) TABLET. PO SCH (09:32)
[2020-11-01] MEDS: PANTOPRAZOLE 40 MG TABLET.DR. PO SCH (09:32)
[2020-11-01] MEDS: SEVELAMER CARBONATE 800 MG TABLET. PO SCH ×3 (09:32→17:37)
[2020-11-01] MEDS: CARVEDILOL 6.25 MG TABLET. PO SCH ×2 (09:32→17:38)
[2020-11-01] MEDS: INSULIN LISPRO 300 UNITS/3 ML VIAL. SQ SCH ×3 (09:36→17:00)
--- NOTE | 2020-11-01 10:34 | PDOC ---
DATE OF SERVICE DATE: 11/01/20 TIME: 10:34 SUBJECTIVE ROS Pt reports feeling better after HD yesterday. Renal Bx was not done,scheduled for Saturday as pt was on ASA OBJECTIVE Vital Signs Vital Signs Date Time Temp Pulse Resp B/P (MAP) Pulse Ox O2 Delivery O2 Flow Rate FiO2 11/01/20 09:32 75 154/91 11/01/20 07:00 99.2 18 97 Room Air 99.2 I & 0 Intake and Output 11/01/20 07:00 Intake Total 180 ml Balance 180 ml Intake Oral 180 ml # Voids 3 PHYSICAL EXAM Physical Exam General Appearance: no apparent distress HEEN puffiness around both eyes Skin: warm Respiratory: bilateral CTA Heart: S1S2 Abdomen: soft, bowel sounds present Extremities: pulses present, no edema Neurology: alert, oriented, follow commands Musculoskeletal: Osteoarthritis DIAGNOSIS/ASSESSMENT Assessment & Plan REESE-ATN/ per Nuc med scan , No improvement in renal function, Initiated dialysis on 10/31 . Dialysis today as well 2nd treatment , discussed treatment plan with DRn Access Temp HDC CT scan Interval resolution of previously seen left hydroureteronephrosis with mild left renal atrophy. No hydronephrosis or nephrolithiasis is seen. Renal Bx cancelled and scheduled for Saturday by IR as pt was on ASA UOP has not been recorded , Strict I/O,Monitor for renal recovery ? UTI- Pt reports she was treated with Abx by her PCP 1 week prior to her hospitalization probably for UTI . She cant recall the name of the Abx Lt Hydtoureteronephrosis - resolved per CT. history of nephrostomy tube in 2019 at [facility] . Some mention of r/o malignancy by Urology at the time and recommended fu. Not sure if she is following with Urology HyperKalemia - resolved Anemia - stable Labile HTN DM II UTI COMMENT/RELEVANT DATA Meds Current Medications Medications (Trade) Dose Ordered Sig/Nilesh Start Time Stop Time Status Last Admin Dose Admin Acetaminophen (Tylenol) 650 mg PRN Q4HRS PRN 10/26/20 14:45 Amlodipine Besylate (Norvasc) 5 mg [id number] 10/29/20 16:00 11/01/20 09:32 5 MG Aspirin (Ecotrin) 81 mg DAILYWBKFT 10/27/20 17:00 10/30/20 14:59 DC 10/30/20 09:21 81 MG Atorvastatin Calcium (Lipitor) 10 mg QHS 10/28/20 21:00 10/31/20 21:19 10 MG Bisacodyl (Dulcolax Tab) 5 mg PRN DAILY PRN 10/26/20 12:00 Carvedilol (Coreg) 6.25 mg BIDWMEALS 10/27/20 17:00 11/01/20 09:32 6.25 MG Ceftriaxone Sodium (Rocephin) 1 gm Q24H 10/27/20 13:00 10/31/20 17:00 1 GM Darbepoetin Storm (ARANESP for DIALYSIS PTS) 60 mcg WEEKLYHS 10/30/20 21:00 10/30/20 21:25 60 MCG Dextrose (Dextrose 50%-Water Syringe) 12.5 gm PRN Q15MIN PRN 10/26/20 14:45 Diphenhydramine HCl (Benadryl) 25 mg 1X PRN PRN 10/31/20 12:45 11/01/20 12:44 Docusate Sodium (Colace) 100 mg PRN DAILY PRN 10/26/20 14:45 10/31/20 21:18 100 MG Furosemide (Lasix) 60 mg 1X ONCE 10/29/20 16:00 10/29/20 16:04 DC 10/29/20 16:52 60 MG Info (PHARMACY MONITORING -- do not chart) 1 each PRN DAILY PRN 10/31/20 12:45 Insulin Human Lispro (HumaLOG) 0-9 UNITS TIDWMEALS 10/26/20 17:00 11/01/20 09:36 4 UNITS Labetalol HCl (Normodyne Iv Push) 20 mg PRN Q2HR PRN 10/27/20 16:30 Lactobacillus Rhamnosus (Culturelle) 1 cap BID 10/27/20 21:00 11/01/20 09:31 1 CAP Lidocaine HCl (Buffered Lidocaine 1%) 6 ml 1X ONCE 10/31/20 11:30 10/31/20 11:32 DC 10/31/20 11:30 4 ML Metoprolol Tartrate (Lopressor Vial) 5 mg PRN Q6HRS PRN 10/26/20 13:15 10/26/20 13:15 DC Ondansetron HCl (Zofran) 4 mg PRN Q6HRS PRN 10/26/20 14:45 10/28/20 21:09 4 MG Pantoprazole Sodium (Protonix) 40 mg DAILYAC 10/26/20 12:00 11/01/20 09:32 40 MG Polyethylene Glycol (miraLAX PACKET) 17 gm DAILY 10/26/20 12:00 10/30/20 09:21 17 GM Sennosides (Senna) 17.2 mg PRN BID PRN 10/26/20 14:45 Sevelamer Carbonate (Renvela) 800 mg TIDWMEALS 10/30/20 17:00 11/01/20 09:32 800 MG Sodium Chloride 1,000 ml @ 400 mls/hr Q2H30M PRN 10/31/20 12:45 11/01/20 00:44 DC Vitamin B Complex/ Vitamin C (Sidra-Evens) 1 tab DAILY 10/30/20 17:00 11/01/20 09:32 1 TAB Lab Laboratory Tests Test 10/31/20 11:10 10/31/20 16:57 10/31/20 20:42 11/01/20 07:00 Glucose (Fingerstick) 149 mg/dL (70-99) 149 mg/dL (70-99) 282 mg/dL (70-99) Sodium Level 140 mmol/L (136-145) Potassium Level 4.3 mmol/L (3.5-5.1) Chloride Level 102 mmol/L (98-107) Carbon Dioxide Level 30 mmol/L (21-32) Anion Gap 8 (6-14) Blood Urea Nitrogen 41 mg/dL (7-20) Creatinine 4.8 mg/dL (0.6-1.0) Estimated GFR (Cockcroft-Gault) 9.2 Glucose Level 157 mg/dL (70-99) Calcium Level 8.6 mg/dL (8.5-10.1) Test 11/01/20 07:24 Glucose (Fingerstick) 163 mg/dL (70-99) Results All relevant outside records, renal labs, imaging studies, telemetry/EKG's were reviewed. Justicifation of Admission Dx: Justifications for Admission: Justification of Admission Dx: Yes CHF: Hemodynamic Instability Acute Renal Failure: RF Can't Be Managed Outpt Chronic Renal Failure: Renail Failure JOLYNN CHOI MD Nov 01, 2020 10:34
--- NOTE | 2020-11-01 10:56 | PDOC ---
Date of Service: DATE: 11/01/20 TIME: 10:54 Subjective: Subjective: No GI complaints. Eating and stooling without issue, no abd pain. Objective: Objective: Nurse present. Vital Signs: Vital Signs Date Time Temp Pulse Resp B/P (MAP) Pulse Ox O2 Delivery O2 Flow Rate FiO2 11/01/20 09:32 75 154/91 11/01/20 07:00 99.2 18 97 Room Air 99.2 Labs: Laboratory Tests Test 10/31/20 11:10 10/31/20 16:57 10/31/20 20:42 11/01/20 07:00 Glucose (Fingerstick) 149 mg/dL 149 mg/dL 282 mg/dL Sodium Level 140 mmol/L Potassium Level 4.3 mmol/L Chloride Level 102 mmol/L Carbon Dioxide Level 30 mmol/L Anion Gap 8 Blood Urea Nitrogen 41 mg/dL Creatinine 4.8 mg/dL Estimated GFR (Cockcroft-Gault) 9.2 Glucose Level 157 mg/dL Calcium Level 8.6 mg/dL Test 11/01/20 07:24 Glucose (Fingerstick) 163 mg/dL PE: GEN: NAD LUNGS: CTAB HEART: RRR ABD: NABS, S/ND/NT NEURO/PSYCH: A & O 3 A/P: REESE - getting HD Anemia (normal iron) GERD - on PPI Rapid COVID negative 10/31 -- Stable GI-calvo. Outpt scopes eventually. Justicifation of Admission Dx: Justifications for Admission: Justification of Admission Dx: Yes CHF: Hemodynamic Instability Acute Renal Failure: RF Can't Be Managed Outpt Chronic Renal Failure: Renail Failure KIRTI JIMENEZ Nov 01, 2020 10:55
[2020-11-01 11:00] VITALS: BP 148/90
--- NOTE | 2020-11-01 11:02 | PDOC ---
PROGRESS NOTES Date of Service: DATE: 11/01/20 TIME: 10:59 Chief Complaint Chief Complaint Impression Assessment/Plan Acute hypertensive emergency Acute renal failure remote history of a cyst drainage percutaneously done in February 2019. had a nephrostomy tube that was placed but that was removed by urology around that time. hyponatremia hyperkalemia Normocytic anemia Elevated lipase Cholelithiasis. diabetes stress test showed mixed perfusion defect involving the mid to distal anterior and anterolateral avalos consistent with small infarct and moderate amount of ischemia. 2019 Mid to distal anterior wall hypokinesis with ejection fraction calculated at 50%. on echo Uremia Anemia of chronic inflammation elevated lipase due to renal failure Diabetes mellitus type 2 RENAL BX scheduled for 10/31/2020 RENAL SCAN done and consistent with ATN plan Follow nephrology weight loss consultant recommendations R ISS and Accu-Cheks IV labetalol as needed for systolic blood pressure goals less than 180 Heparin for DVT prophylaxis ADA diet Full code Discussed with RN and SW Disposition inpatient management Surrogate decision maker is the consider renal bx if cr not improved cardiology consult 35 min pt exam, chart review, > 50% of time spent with exam, chart review, pt care coordination Justifications for Admission Justifications for Admission Other Justification ACUTE SEVERE RENAL FAILURE, RTN History of Present Illness History of Present Illness Chief Complaint: Chief Complain: dizziness and weakness History of Present Illness: HPI: Patient is a 60-year-old female with past medical history of diabetes mellitus type 2 who comes in with complaints of dizziness and weakness in her lower extremities. She also had some right-sided flank pain in which she had a injection trigger point last week and said that her pain improved slightly with that. However, she has been dealing with this dizziness for the past couple of weeks. Patient denies any fevers, chills, rashes, chest pain or shortness of breath or abdominal pain or dysuria. Patient does have a history of diabetes which she takes Metformin as she said that she takes other medications in which she said that she does not feel good taking them. Patient did have some outpatient lab work done at that is why she came because they stated that she had some renal failure. Patient does also have a remote history of a cyst drainage percutaneously done in February 2019. She also had a nephrostomy tube that was placed but that was removed by urology around that time. Denies kidney stones, dysuria, hematuria or incontinence or frequency. Of note, patient was recently admitted to the hospital for treatment for pneumonia and she was taking Levaquin at that time. 10-29 cr remains elevated at 7.1 , 700cc urine output 10-28 STABLE BUT RENAL FUNCTION NOT RECOVERING WELL CR 7.4 2-1 no acute events reported overnight, case discussed with nursing staff patient in no acute distress no complaints during my visit 2-2 Patient with no new complaints feeling better no concerns voiced during my encounter Vitals Vitals Vital Signs Date Time Temp Pulse Resp B/P (MAP) Pulse Ox O2 Delivery O2 Flow Rate FiO2 11/01/20 09:32 75 154/91 11/01/20 07:00 99.2 18 97 Room Air 99.2 Physical Exam Physical Exam GEN: No apparent distress. Alert and oriented HEENT: Normal cephalic, atraumatic, external auditory canals are patent EYES: Extraocular muscles are intact, pupil are equally round and reactive to light and accommodation MUSCULOSKELETAL: Well developed , well nourished, good range of motion ENDOCRINE: No thyromegaly was palpated LYMPHATICS: No cervical chain or axillary nodes were noted HEMATOPOIETIC: No bruising NECK: Supple, no JVD, no thyromegaly was noted LUNGS: Clear to auscultation in all lung guerrero without rhonchi or wheezing HEART: RRR, S!, S2 present. Peripheral pulses intact, no obvious murmurs noted ABDOMEN: Soft, nontender. Positive bowel sounds, no organomegaly, normal bowel sounds EXTREMITIES: Without clubbing, cyanosis, or edema. Pedal pulses intact. Negative Homans sign NEUROLOGIC: Normal speech and tone. A&O x 3, moves all extremities, no obvious focal deficits PSYCHIATRIC: Normal affect, normal mood. Stable SKIN: No ulcerations or rashes, good skin turgor, no jaundice VASCULAR: Good capillary refill, neurovascular bundle appears to be intact General: Alert, Oriented X3, Cooperative, No acute distress Heart: Regular rate (SR), Normal S1, Normal S2, No murmurs Lungs: Clear Abdomen: Normal bowel sounds, Soft, No tenderness Extremities: No cyanosis, No edema Skin: No breakdown, No significant lesion Labs LABS Laboratory Tests Test 10/31/20 11:10 10/31/20 16:57 10/31/20 20:42 11/01/20 07:00 Glucose (Fingerstick) 149 mg/dL (70-99) 149 mg/dL (70-99) 282 mg/dL (70-99) Sodium Level 140 mmol/L (136-145) Potassium Level 4.3 mmol/L (3.5-5.1) Chloride Level 102 mmol/L (98-107) Carbon Dioxide Level 30 mmol/L (21-32) Anion Gap 8 (6-14) Blood Urea Nitrogen 41 mg/dL (7-20) Creatinine 4.8 mg/dL (0.6-1.0) Estimated GFR (Cockcroft-Gault) 9.2 Glucose Level 157 mg/dL (70-99) Calcium Level 8.6 mg/dL (8.5-10.1) Test 11/01/20 07:24 Glucose (Fingerstick) 163 mg/dL (70-99) Review of Systems Review of Systems Review of systems pertinent as per HPI otherwise 14 point review of system is negative Assessment and Plan Assessmemt and Plan Problems Medical Problems: (1) Acute pancreatitis Status: Acute (2) ARF (acute renal failure) Status: Acute Comment Review of Relevant I have reviewed the following items misha (where applicable) has been applied. Labs Laboratory Tests Test 10/30/20 11:56 10/30/20 17:06 10/30/20 19:10 10/30/20 20:43 Glucose (Fingerstick) 309 mg/dL (70-99) 156 mg/dL (70-99) 156 mg/dL (70-99) Urine Protein 13.4 mg/dL (Not Estab.) Urine Protein 24 Hr Calculated 529 mg/24 hr (30-150) Test 10/31/20 07:33 10/31/20 08:10 10/31/20 08:15 10/31/20 11:10 Glucose (Fingerstick) 151 mg/dL (70-99) 149 mg/dL (70-99) White Blood Count 8.4 x10^3/uL (4.0-11.0) Red Blood Count 3.39 x10^6/uL (3.50-5.40) Hemoglobin 9.3 g/dL (12.0-15.5) Hematocrit 28.3 % (36.0-47.0) Mean Corpuscular Volume 83 fL (79-100) Mean Corpuscular Hemoglobin 27 pg (25-35) Mean Corpuscular Hemoglobin Concent 33 g/dL (31-37) Red Cell Distribution Width 15.6 % (11.5-14.5) Platelet Count 222 x10^3/uL (140-400) Prothrombin Time 13.0 SEC (11.7-14.0) Prothromb Time International Ratio 1.0 (0.8-1.1) Sodium Level 138 mmol/L (136-145) Potassium Level 5.1 mmol/L (3.5-5.1) Chloride Level 106 mmol/L (98-107) Carbon Dioxide Level 17 mmol/L (21-32) Anion Gap 15 (6-14) Blood Urea Nitrogen 91 mg/dL (7-20) Creatinine 7.4 mg/dL (0.6-1.0) Estimated GFR (Cockcroft-Gault) 5.6 Glucose Level 149 mg/dL (70-99) Calcium Level 8.7 mg/dL (8.5-10.1) Phosphorus Level 6.0 mg/dL (2.6-4.7) Albumin 2.8 g/dL (3.4-5.0) Hepatitis B Surface Antigen Nonreactive (Nonreactive) Hepatitis B Core Total Antibody Nonreactive (Nonreactive) SARS-CoV-2 Antigen (Rapid) Negative (NEGATIVE) Test 10/31/20 16:57 10/31/20 20:42 11/01/20 07:00 11/01/20 07:24 Glucose (Fingerstick) 149 mg/dL (70-99) 282 mg/dL (70-99) 163 mg/dL (70-99) Sodium Level 140 mmol/L (136-145) Potassium Level 4.3 mmol/L (3.5-5.1) Chloride Level 102 mmol/L (98-107) Carbon Dioxide Level 30 mmol/L (21-32) Anion Gap 8 (6-14) Blood Urea Nitrogen 41 mg/dL (7-20) Creatinine 4.8 mg/dL (0.6-1.0) Estimated GFR (Cockcroft-Gault) 9.2 Glucose Level 157 mg/dL (70-99) Calcium Level 8.6 mg/dL (8.5-10.1) Laboratory Tests Test 10/31/20 11:10 10/31/20 16:57 10/31/20 20:42 11/01/20 07:00 Glucose (Fingerstick) 149 mg/dL (70-99) 149 mg/dL (70-99) 282 mg/dL (70-99) Sodium Level 140 mmol/L (136-145) Potassium Level 4.3 mmol/L (3.5-5.1) Chloride Level 102 mmol/L (98-107) Carbon Dioxide Level 30 mmol/L (21-32) Anion Gap 8 (6-14) Blood Urea Nitrogen 41 mg/dL (7-20) Creatinine 4.8 mg/dL (0.6-1.0) Estimated GFR (Cockcroft-Gault) 9.2 Glucose Level 157 mg/dL (70-99) Calcium Level 8.6 mg/dL (8.5-10.1) Test 11/01/20 07:24 Glucose (Fingerstick) 163 mg/dL (70-99) Microbiology 10/26/20 Blood Culture - Final, Complete NO GROWTH AFTER 5 DAYS 10/26/20 Urine Culture - Final, Complete Medications Current Medications Sodium Chloride 1,000 ml @ 100 mls/hr 1X ONCE IV Last administered on 10/26/20at 11:28; Start 10/26/20 at 10:30; Stop 10/26/20 at 20:29; Status DC Ceftriaxone Sodium (Rocephin) 1 gm 1X ONCE IVP Last administered on 10/26/20at 11:28; Start 10/26/20 at 12:00; Stop 10/26/20 at 12:01; Status DC Pantoprazole Sodium (Protonix) 40 mg DAILYAC PO Last administered on 11/01/20at 09:32; Start 10/26/20 at 12:00 Polyethylene Glycol (miraLAX PACKET) 17 gm DAILY PO Last administered on 10/30/20at 09:21; Start 10/26/20 at 12:00 Bisacodyl (Dulcolax Tab) 5 mg PRN DAILY PRN PO CONSTIPATION, 2ND CHOICE; Start 10/26/20 at 12:00 Metoprolol Tartrate (Lopressor Vial) 5 mg PRN Q6HRS PRN IVP HYPERTENSION, 1ST CHOICE; Start 10/26/20 at 13:15; Stop 10/26/20 at 13:15; Status DC Labetalol HCl (Normodyne Iv Push) 20 mg PRN Q2HR PRN IVP HYPERTENSION; Start 10/26/20 at 13:15; Stop 10/26/20 at 13:20; Status DC Labetalol HCl (Normodyne Iv Push) 10 mg PRN Q2HR PRN IVP HYPERTENSION Last administered on 10/26/20at 13:27; Start 10/26/20 at 13:30; Stop 10/28/20 at 12:06; Status DC Insulin Human Lispro (HumaLOG) 0-9 UNITS TIDWMEALS SQ Last administered on 11/01/20at 09:36; Start 10/26/20 at 17:00 Dextrose (Dextrose 50%-Water Syringe) 12.5 gm PRN Q15MIN PRN IV SEE COMMENTS; Start 10/26/20 at 14:45; Stop 10/26/20 at 14:48; Status DC Sennosides (Senna) 17.2 mg PRN BID PRN PO CONSTIPATION. 1ST CHOICE; Start at 14:45 Docusate Sodium (Colace) 100 mg PRN DAILY PRN PO HARD STOOLS Last administered on 10/31/20at 21:18; Start 10/26/20 at 14:45 Ondansetron HCl (Zofran) 4 mg PRN Q6HRS PRN IVP NAUSEA/VOMITING Last administered on 10/28/20at 21:09; Start 10/26/20 at 14:45 Dextrose (Dextrose 50%-Water Syringe) 12.5 gm PRN Q15MIN PRN IV SEE COMMENTS; Start 10/26/20 at 14:45 Acetaminophen (Tylenol) 650 mg PRN Q4HRS PRN PO TEMP OVER 100.4F OR MILD PAIN; Start 10/26/20 at 14:45 Sodium Chloride 1,000 ml @ 60 mls/hr [id number] IV Last administered on 10/30/20at 21:26; Start 10/26/20 at 17:30 Amlodipine Besylate (Norvasc) 5 mg DAILY PO Last administered on 10/29/20at 10:23; Start 10/27/20 at 13:00; Stop 10/29/20 at 12:33; Status DC Ceftriaxone Sodium (Rocephin) 1 gm Q24H IVP Last administered on 10/31/20at 17:00; Start 10/27/20 at 13:00 Lactobacillus Rhamnosus (Culturelle) 1 cap BID PO Last administered on 11/01/20 09:31; Start 10/27/20 at 21:00 Aspirin (Ecotrin) 81 mg DAILYWBKFT PO Last administered on 10/30/20 09:21; Start 10/27/20 at 17:00; Stop 10/30/20 at 14:59; Status DC Carvedilol (Coreg) 6.25 mg BIDWMEALS PO Last administered on 11/01/20 09:32; Start 10/27/20 at 17:00 Labetalol HCl (Normodyne Iv Push) 20 mg PRN Q2HR PRN IVP HYPERTENSION; Start 10/27/20 at 16:30 Atorvastatin Calcium (Lipitor) 10 mg QHS PO Last administered on 10/31/20at 21:19; Start 10/28/20 at 21:00 Amlodipine Besylate (Norvasc) 5 mg BID94 PO Last administered on 11/01/20 09:32; Start 10/29/20 at 16:00 Furosemide (Lasix) 60 mg 1X ONCE IVP Last administered on 10/29/20at 16:52; Start 10/29/20 at 16:00; Stop 10/29/20 at 16:04; Status DC Sevelamer Carbonate (Renvela) 800 mg TIDWMEALS PO Last administered on 11/01/20 09:32; Start 10/30/20 at 17:00 Vitamin B Complex/ Vitamin C (Sidra-Evens) 1 tab DAILY PO Last administered on 11/01/20at 09:32; Start 10/30/20 at 17:00 Darbepoetin Storm (ARANESP for DIALYSIS PTS) 60 mcg WEEKLYHS SQ Last administered on 10/30/20at 21:25; Start 10/30/20 at 21:00 Lidocaine HCl (Buffered Lidocaine 1%) 3 ml STK-MED ONCE .ROUTE ; Start 10/31/20 at 11:23; Stop 10/31/20 at 11:23; Status DC Lidocaine HCl (Buffered Lidocaine 1%) 6 ml 1X ONCE INJ Last administered on 10/31/20at 11:30; Start 10/31/20 at 11:30; Stop 10/31/20 at 11:32; Status DC Sodium Chloride 1,000 ml @ 1,000 mls/hr Q1H PRN IV hypotension; Start 10/31/20 at 12:45; Stop 10/31/20 at 18:44; Status DC Diphenhydramine HCl (Benadryl) 25 mg 1X PRN PRN IV ITCHING; Start 10/31/20 at 12:45; Stop 11/01/20 at 12:44 Diphenhydramine HCl (Benadryl) 25 mg 1X PRN PRN IV ITCHING; Start 10/31/20 at 12:45; Stop 11/01/20 at 12:44 Sodium Chloride 1,000 ml @ 400 mls/hr Q2H30M PRN IV PATENCY; Start 10/31/20 at 12:45; Stop 11/01/20 at 00:44; Status DC Info (PHARMACY MONITORING -- do not chart) 1 each PRN DAILY PRN MC SEE COMMENTS; Start 10/31/20 at 12:45 Active Scripts Active Reported Aspir-Low (Aspirin) 81 Mg Tablet.dr 1 Tab PO DAILY Metformin Hcl Er (Metformin Hcl) 500 Mg Tab.er.24h 500 Mg PO BIDWMEALS Vitals/I & O Vital Sign - Last 24 Hours 10/31/20 10/31/20 10/31/20 10/31/20 11:20 15:29 16:59 16:59 Temp 98.2 97.8 98.2 97.8 Pulse 65 71 71 71 Resp 18 B/P (MAP) 143/86 (105) 156/82 (106) 156/82 156/82 Pulse Ox 94 O2 Delivery Room Air Room Air 10/31/20 10/31/20 11/01/20 11/01/20 19:00 23:00 03:00 07:00 Temp 98.0 97.8 98.9 99.2 98.0 97.8 98.9 99.2 Pulse 77 77 73 75 Resp 16 16 18 18 B/P (MAP) 138/73 (94) 139/81 (100) 140/75 (96) 154/91 (112) Pulse Ox 97 94 94 97 O2 Delivery Room Air 11/01/20 11/01/20 09:32 09:32 Pulse 75 75 B/P (MAP) 154/91 154/91 Intake and Output 10/31/20 10/31/20 11/01/20 15:00 23:00 07:00 Intake Total 180 ml Balance 180 ml Justicifation of Admission Dx: Justifications for Admission: Justification of Admission Dx: Yes CHF: Hemodynamic Instability Acute Renal Failure: RF Can't Be Managed Outpt Chronic Renal Failure: Renail Failure RENARD DUENAS MD Nov 01, 2020 11:02
[2020-11-01] MEDS: cefTRIAXone IV Push 1 GM VIAL. IVP SCH (12:14)
--- NOTE | 2020-11-01 13:06 | NUR ---
SW following for discharge planning. Spoke with RN and reviewed chart. Pt to have biopsy done out-patient. Spoke with nephrology and it is not clear yet if pt will need long-term dialysis. Pt has temp HD cath. SW following.
[2020-11-01] MEDS ORDERED: IV NORMAL SALINE 1000ML BAG 1,000 ML IV PRN ×2 (14:00)
[2020-11-01] MEDS ORDERED: ALBUMIN HUMAN 25% 200 ML IV PRN (14:00)
[2020-11-01] MEDS ORDERED: DIALYSIS PATIENT. MC PRN ×2 (14:00)
[2020-11-01] MEDS ORDERED: 0.9 % SODIUM CHLORIDE 10 ML DISP.SYRIN. IV PRN ×2 (14:00)
[2020-11-01] MEDS: IV NORMAL SALINE 1000ML BAG 1,000 ML IV SCH (14:48)
[2020-11-01 15:18] LABS: ALBUM 2.9 g/dL (2.9-4.4); ALPHA 1 0.2 g/dL (0.0-0.4); ALPHA 2 0.6 g/dL (0.4-1.0); BETA 0.8 g/dL (0.7-1.3); GAMMA 1.3 g/dL (0.4-1.8); PROTEIN TOTAL 5.8 g/dL (6.0-8.5)
[2020-11-01 19:00] VITALS: BP 138/75
[2020-11-01] MEDS: DOCUSATE SODIUM 100 MG CAPSULE. PO PRN (21:13)
[2020-11-01] MEDS: ATORVASTATIN CALCIUM 10 MG TABLET. PO SCH (21:13)
[2020-11-01 23:00] VITALS: BP 140/77
[2020-11-02 03:00] VITALS: BP 125/65
[2020-11-02 07:00] VITALS: BP 146/77
[2020-11-02] MEDS: IV NORMAL SALINE 1000ML BAG 1,000 ML IV SCH ×2 (07:28→23:18)
--- NOTE | 2020-11-02 07:30 | PDOC ---
PROGRESS NOTES Date of Service: DATE: 11/02/20 TIME: 07:28 Chief Complaint Chief Complaint Impression Assessment/Plan Acute hypertensive emergency Acute renal failure remote history of a cyst drainage percutaneously done in February 2019. had a nephrostomy tube that was placed but that was removed by urology around that time. hyponatremia hyperkalemia Normocytic anemia Elevated lipase Cholelithiasis. diabetes stress test showed mixed perfusion defect involving the mid to distal anterior and anterolateral avalos consistent with small infarct and moderate amount of ischemia. 2019 Mid to distal anterior wall hypokinesis with ejection fraction calculated at 50%. on echo Uremia Anemia of chronic inflammation elevated lipase due to renal failure Diabetes mellitus type 2 RENAL BX scheduled for 10/31/2020 RENAL SCAN done and consistent with ATN plan Follow nephrology data migration consultant recommendations, dialysis as per data migration consultant R ISS and Accu-Cheks IV labetalol as needed for systolic blood pressure goals less than 180 Heparin for DVT prophylaxis ADA diet Full code Discussed with RN and SW Disposition inpatient management Surrogate decision maker is the renal biopsy not done will follow recommendations from nephrology ayaz to pursue procedure 35 min pt exam, chart review, > 50% of time spent with exam, chart review, pt care coordination Justifications for Admission Justifications for Admission Other Justification ACUTE SEVERE RENAL FAILURE, RTN History of Present Illness History of Present Illness Chief Complaint: Chief Complain: dizziness and weakness History of Present Illness: HPI: Patient is a 60-year-old female with past medical history of diabetes mellitus type 2 who comes in with complaints of dizziness and weakness in her lower extremities. She also had some right-sided flank pain in which she had a injection trigger point last week and said that her pain improved slightly with that. However, she has been dealing with this dizziness for the past couple of weeks. Patient denies any fevers, chills, rashes, chest pain or shortness of breath or abdominal pain or dysuria. Patient does have a history of diabetes which she takes Metformin as she said that she takes other medications in which she said that she does not feel good taking them. Patient did have some outpatient lab work done at that is why she came because they stated that she had some renal failure. Patient does also have a remote history of a cyst drainage percutaneously done in February 2019. She also had a nephrostomy tube that was placed but that was removed by urology around that time. Denies kidney stones, dysuria, hematuria or incontinence or frequency. Of note, patient was recently admitted to the hospital for treatment for pneumonia and she was taking Levaquin at that time. 10-29 cr remains elevated at 7.1 , 700cc urine output 10-28 STABLE BUT RENAL FUNCTION NOT RECOVERING WELL CR 7.4 2-1 no acute events reported overnight, case discussed with nursing staff patient in no acute distress no complaints during my visit 2-2 Patient with no new complaints feeling better no concerns voiced during my encounter 2-3 no acute events reported overnight, case discussed with nursing staff patient in no acute distress no complaints during my visit Vitals Vitals Vital Signs Date Time Temp Pulse Resp B/P (MAP) Pulse Ox O2 Delivery O2 Flow Rate FiO2 11/02/20 03:00 99.0 73 18 125/65 (85) 97 Room Air 99.0 Physical Exam Physical Exam GEN: No apparent distress. Alert and oriented HEENT: Normal cephalic, atraumatic, external auditory canals are patent EYES: Extraocular muscles are intact, pupil are equally round and reactive to light and accommodation MUSCULOSKELETAL: Well developed , well nourished, good range of motion ENDOCRINE: No thyromegaly was palpated LYMPHATICS: No cervical chain or axillary nodes were noted HEMATOPOIETIC: No bruising NECK: Supple, no JVD, no thyromegaly was noted LUNGS: Clear to auscultation in all lung guerrero without rhonchi or wheezing HEART: RRR, S!, S2 present. Peripheral pulses intact, no obvious murmurs noted ABDOMEN: Soft, nontender. Positive bowel sounds, no organomegaly, normal bowel sounds EXTREMITIES: Without clubbing, cyanosis, or edema. Pedal pulses intact. Negative Homans sign NEUROLOGIC: Normal speech and tone. A&O x 3, moves all extremities, no obvious focal deficits PSYCHIATRIC: Normal affect, normal mood. Stable SKIN: No ulcerations or rashes, good skin turgor, no jaundice VASCULAR: Good capillary refill, neurovascular bundle appears to be intact General: Alert, Oriented X3, Cooperative, No acute distress Heart: Regular rate (SR), Normal S1, Normal S2, No murmurs Lungs: Clear Abdomen: Normal bowel sounds, Soft, No tenderness Extremities: No cyanosis, No edema Skin: No breakdown, No significant lesion Labs LABS Laboratory Tests Test 2/2/21 11:39 11/01/20 20:28 Glucose (Fingerstick) 185 mg/dL (70-99) 278 mg/dL (70-99) Review of Systems Review of Systems Review of systems pertinent as per HPI otherwise 14 point review of system is negative Assessment and Plan Assessmemt and Plan Problems Medical Problems: (1) Acute pancreatitis Status: Acute (2) ARF (acute renal failure) Status: Acute Comment Review of Relevant I have reviewed the following items misha (where applicable) has been applied. Labs Laboratory Tests Test 10/31/20 07:33 10/31/20 07:51 10/31/20 08:10 10/31/20 08:15 Glucose (Fingerstick) 151 mg/dL (70-99) Coronavirus (PCR) Not detected (Not Detected) White Blood Count 8.4 x10^3/uL (4.0-11.0) Red Blood Count 3.39 x10^6/uL (3.50-5.40) Hemoglobin 9.3 g/dL (12.0-15.5) Hematocrit 28.3 % (36.0-47.0) Mean Corpuscular Volume 83 fL (79-100) Mean Corpuscular Hemoglobin 27 pg (25-35) Mean Corpuscular Hemoglobin Concent 33 g/dL (31-37) Red Cell Distribution Width 15.6 % (11.5-14.5) Platelet Count 222 x10^3/uL (140-400) Prothrombin Time 13.0 SEC (11.7-14.0) Prothromb Time International Ratio 1.0 (0.8-1.1) Sodium Level 138 mmol/L (136-145) Potassium Level 5.1 mmol/L (3.5-5.1) Chloride Level 106 mmol/L (98-107) Carbon Dioxide Level 17 mmol/L (21-32) Anion Gap 15 (6-14) Blood Urea Nitrogen 91 mg/dL (7-20) Creatinine 7.4 mg/dL (0.6-1.0) Estimated GFR (Cockcroft-Gault) 5.6 Glucose Level 149 mg/dL (70-99) Calcium Level 8.7 mg/dL (8.5-10.1) Phosphorus Level 6.0 mg/dL (2.6-4.7) Albumin 2.8 g/dL (3.4-5.0) Hepatitis B Surface Antigen Nonreactive (Nonreactive) Hepatitis B Core Total Antibody Nonreactive (Nonreactive) SARS-CoV-2 Antigen (Rapid) Negative (NEGATIVE) Test 10/31/20 11:10 10/31/20 16:57 10/31/20 20:42 11/01/20 07:00 Glucose (Fingerstick) 149 mg/dL (70-99) 149 mg/dL (70-99) 282 mg/dL (70-99) Sodium Level 140 mmol/L (136-145) Potassium Level 4.3 mmol/L (3.5-5.1) Chloride Level 102 mmol/L (98-107) Carbon Dioxide Level 30 mmol/L (21-32) Anion Gap 8 (6-14) Blood Urea Nitrogen 41 mg/dL (7-20) Creatinine 4.8 mg/dL (0.6-1.0) Estimated GFR (Cockcroft-Gault) 9.2 Glucose Level 157 mg/dL (70-99) Calcium Level 8.6 mg/dL (8.5-10.1) Test 11/01/20 07:24 11/01/20 11:39 11/01/20 20:28 Glucose (Fingerstick) 163 mg/dL (70-99) 185 mg/dL (70-99) 278 mg/dL (70-99) Laboratory Tests Test 11/01/20 11:39 11/01/20 20:28 Glucose (Fingerstick) 185 mg/dL (70-99) 278 mg/dL (70-99) Microbiology 10/26/20 Blood Culture - Final, Complete NO GROWTH AFTER 5 DAYS 10/26/20 Urine Culture - Final, Complete Medications Current Medications Sodium Chloride 1,000 ml @ 100 mls/hr 1X ONCE IV Last administered on 10/26/20at 11:28; Start 10/26/20 at 10:30; Stop 10/26/20 at 20:29; Status DC Ceftriaxone Sodium (Rocephin) 1 gm 1X ONCE IVP Last administered on 10/26/20at 11:28; Start 10/26/20 at 12:00; Stop 10/26/20 at 12:01; Status DC Pantoprazole Sodium (Protonix) 40 mg DAILYAC PO Last administered on 11/01/20at 09:32; Start 10/26/20 at 12:00 Polyethylene Glycol (miraLAX PACKET) 17 gm DAILY PO Last administered on 10/30/20at 09:21; Start 10/26/20 at 12:00 Bisacodyl (Dulcolax Tab) 5 mg PRN DAILY PRN PO CONSTIPATION, 2ND CHOICE; Start 10/26/20 at 12:00 Metoprolol Tartrate (Lopressor Vial) 5 mg PRN Q6HRS PRN IVP HYPERTENSION, 1ST CHOICE; Start 10/26/20 at 13:15; Stop 10/26/20 at 13:15; Status DC Labetalol HCl (Normodyne Iv Push) 20 mg PRN Q2HR PRN IVP HYPERTENSION; Start 10/26/20 at 13:15; Stop 10/26/20 at 13:20; Status DC Labetalol HCl (Normodyne Iv Push) 10 mg PRN Q2HR PRN IVP HYPERTENSION Last administered on 10/26/20at 13:27; Start 10/26/20 at 13:30; Stop 10/28/20 at 12:06; Status DC Insulin Human Lispro (HumaLOG) 0-9 UNITS TIDWMEALS SQ Last administered on 11/01/20at 12:24; Start 10/26/20 at 17:00 Dextrose (Dextrose 50%-Water Syringe) 12.5 gm PRN Q15MIN PRN IV SEE COMMENTS; Start 10/26/20 at 14:45; Stop 10/26/20 at 14:48; Status DC Sennosides (Senna) 17.2 mg PRN BID PRN PO CONSTIPATION. 1ST CHOICE; Start 10/26/20 at 14:45 Docusate Sodium (Colace) 100 mg PRN DAILY PRN PO HARD STOOLS Last administered on 11/01/20at 21:13; Start 10/26/20 at 14:45 Ondansetron HCl (Zofran) 4 mg PRN Q6HRS PRN IVP NAUSEA/VOMITING Last administered on 10/28/20at 21:09; Start 10/26/20 at 14:45 Dextrose (Dextrose 50%-Water Syringe) 12.5 gm PRN Q15MIN PRN IV SEE COMMENTS; Start 10/26/20 at 14:45 Acetaminophen (Tylenol) 650 mg PRN Q4HRS PRN PO TEMP OVER 100.4F OR MILD PAIN; Start 10/26/20 at 14:45 Sodium Chloride 1,000 ml @ 60 mls/hr [id number] IV Last administered on 10/30/20at 21:26; Start 10/26/20 at 17:30 Amlodipine Besylate (Norvasc) 5 mg DAILY PO Last administered on 10/29/20at 10:23; Start 10/27/20 at 13:00; Stop 10/29/20 at 12:33; Status DC Ceftriaxone Sodium (Rocephin) 1 gm Q24H IVP Last administered on 11/01/20at 12:14; Start 10/27/20 at 13:00 Lactobacillus Rhamnosus (Culturelle) 1 cap BID PO Last administered on 11/01/20at 21:13; Start 10/27/20 at 21:00 Aspirin (Ecotrin) 81 mg DAILYWBKFT PO Last administered on 10/30/20at 09:21; Start 10/27/20 at 17:00; Stop 10/30/20 at 14:59; Status DC Carvedilol (Coreg) 6.25 mg BIDWMEALS PO Last administered on 11/01/20at 17:38; Start 10/27/20 at 17:00 Labetalol HCl (Normodyne Iv Push) 20 mg PRN Q2HR PRN IVP HYPERTENSION; Start 10/27/20 at 16:30 Atorvastatin Calcium (Lipitor) 10 mg QHS PO Last administered on 11/01/20at 21:13; Start 10/28/20 at 21:00 Amlodipine Besylate (Norvasc) 5 mg [id number] PO Last administered on 11/01/20at 17:38; Start 10/29/20 at 16:00 Furosemide (Lasix) 60 mg 1X ONCE IVP Last administered on 10/29/20at 16:52; Start 10/29/20 at 16:00; Stop 10/29/20 at 16:04; Status DC Sevelamer Carbonate (Renvela) 800 mg TIDWMEALS PO Last administered on 11/01/20 17:37; Start 10/30/20 at 17:00 Vitamin B Complex/ Vitamin C (Sidra-Evens) 1 tab DAILY PO Last administered on 11/01/20at 09:32; Start 10/30/20 at 17:00 Darbepoetin Storm (ARANESP for DIALYSIS PTS) 60 mcg WEEKLYHS SQ Last administered on 10/30/20at 21:25; Start 10/30/20 at 21:00 Lidocaine HCl (Buffered Lidocaine 1%) 3 ml STK-MED ONCE .ROUTE ; Start 10/31/20 at 11:23; Stop 10/31/20 at 11:23; Status DC Lidocaine HCl (Buffered Lidocaine 1%) 6 ml 1X ONCE INJ Last administered on 10/31/20at 11:30; Start 10/31/20 at 11:30; Stop 10/31/20 at 11:32; Status DC Sodium Chloride 1,000 ml @ 1,000 mls/hr Q1H PRN IV hypotension; Start 10/31/20 at 12:45; Stop 10/31/20 at 18:44; Status DC Diphenhydramine HCl (Benadryl) 25 mg 1X PRN PRN IV ITCHING; Start 10/31/20 at 12:45; Stop 11/01/20 at 12:44; Status DC Diphenhydramine HCl (Benadryl) 25 mg 1X PRN PRN IV ITCHING; Start 10/31/20 at 12:45; Stop 11/01/20 at 12:44; Status DC Sodium Chloride 1,000 ml @ 400 mls/hr Q2H30M PRN IV PATENCY; Start 10/31/20 at 12:45; Stop 11/01/20 at 00:44; Status DC Info (PHARMACY MONITORING -- do not chart) 1 each PRN DAILY PRN MC SEE COMMENTS; Start 10/31/20 at 12:45 Sodium Chloride 1,000 ml @ 1,000 mls/hr Q1H PRN IV hypotension; Start 11/01/20 at 14:00; Stop 11/01/20 at 19:59; Status DC Albumin Human 200 ml @ 200 mls/hr 1X PRN PRN IV Hypotension; Start 11/01/20 at 14:00; Stop 11/01/20 at 19:59; Status DC Sodium Chloride (Normal Saline Flush) 10 ml 1X PRN PRN IV AP catheter pack; S tart 11/01/20 at 14:00; Stop 11/02/20 at 13:59 Sodium Chloride (Normal Saline Flush) 10 ml 1X PRN PRN IV VISUAL MANAGER catheter pack; Start 11/01/20 at 14:00; Stop 11/02/20 at 13:59 Sodium Chloride 1,000 ml @ 400 mls/hr Q2H30M PRN IV PATENCY; Start 11/01/20 at 14:00; Stop 11/02/20 at 01:59; Status DC Info (PHARMACY MONITORING -- do not chart) 1 each PRN DAILY PRN MC SEE COMMENTS; Start 11/01/20 at 14:00 Info (PHARMACY MONITORING -- do not chart) 1 each PRN DAILY PRN MC SEE COMMENTS; Start 11/01/20 at 14:00 Active Scripts Active Reported Aspir-Low (Aspirin) 81 Mg Tablet.dr 1 Tab PO DAILY Metformin Hcl Er (Metformin Hcl) 500 Mg Tab.er.24h 500 Mg PO BIDWMEALS Vitals/I & O Vital Sign - Last 24 Hours 11/01/20 11/01/20 11/01/20 11/01/20 08:00 09:32 09:32 11:00 Temp 98.9 98.9 Pulse 75 75 72 Resp 20 B/P (MAP) 154/91 154/91 148/90 (109) Pulse Ox 98 O2 Delivery Room Air Room Air 11/01/20 11/01/20 11/01/20 11/01/20 17:38 17:38 19:00 20:10 Temp 98.6 98.6 Pulse 77 Resp 21 B/P (MAP) 144/80 144/80 138/75 (96) Pulse Ox 93 O2 Delivery Room Air Room Air 11/01/20 11/02/20 23:00 03:00 Temp 98.7 99.0 98.7 99.0 Pulse 76 73 Resp 18 18 B/P (MAP) 140/77 (98) 125/65 (85) Pulse Ox 97 97 O2 Delivery Room Air Room Air Intake and Output 11/01/20 11/01/20 11/02/20 15:00 23:00 07:00 Intake Total 120 ml Output Total 0 ml 0 ml Balance 120 ml 0 ml 0 ml Justicifation of Admission Dx: Justifications for Admission: Justification of Admission Dx: Yes CHF: Hemodynamic Instability Acute Renal Failure: RF Can't Be Managed Outpt Chronic Renal Failure: Renail Failure RENRAD DUENAS MD Nov 02, 2020 07:30
[2020-11-02] MEDS: INSULIN LISPRO 300 UNITS/3 ML VIAL. SQ SCH ×3 (07:57→17:47)
[2020-11-02 08:49] LABS: CALCIUM 9.1 mg/dL (8.5-10.1); CREATININE 4.3 mg/dL (0.6-1.0); GFR 10.4; POTASSIUM 4.2 mmol/L (3.5-5.1)
--- NOTE | 2020-11-02 09:39 | NUR ---
SW following. Discussed with RN, pt from home with , room air, renal diet. Pt had temp HD cath placed, will likely have biopsy as outpatient. 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 Pt wanting to go home. PT/OT recommending home. SW will continue to follow.
--- NOTE | 2020-11-02 09:39 | PDOC ---
Date of Service: DATE: 11/02/20 TIME: 09:37 Subjective: Subjective: Thinks she might get to go home today. No GI complaints. Objective: Vital Signs: Vital Signs Date Time Temp Pulse Resp B/P (MAP) Pulse Ox O2 Delivery O2 Flow Rate FiO2 11/02/20 07:00 98.8 70 18 146/77 (100) 94 Room Air 98.8 Labs: Laboratory Tests Test 11/01/20 11:39 11/01/20 20:28 11/02/20 07:24 11/02/20 08:01 Glucose (Fingerstick) 185 mg/dL 278 mg/dL 149 mg/dL Sodium Level 138 mmol/L Potassium Level 4.2 mmol/L Chloride Level 100 mmol/L Carbon Dioxide Level 27 mmol/L Anion Gap 11 Blood Urea Nitrogen 25 mg/dL Creatinine 4.3 mg/dL Estimated GFR (Cockcroft-Gault) 10.4 Glucose Level 180 mg/dL Calcium Level 9.1 mg/dL PE: GEN: NAD LUNGS: CTAB HEART: RRR ABD: NABS, S/ND/NT NEURO/PSYCH: A & O 3, flat A/P: REESE - getting HD (has temp cath) Anemia (normal iron) GERD - on PPI Rapid COVID negative 10/31 -- Continue per nephrology. Outpt scopes as able. Justicifation of Admission Dx: Justifications for Admission: Justification of Admission Dx: Yes CHF: Hemodynamic Instability Acute Renal Failure: RF Can't Be Managed Outpt Chronic Renal Failure: Renail Failure KIRTI JIMENEZ Nov 02, 2020 09:39
[2020-11-02] MEDS: POLYETHYLENE GLYCOL 3350 17 GM PACKET. PO SCH (10:19)
[2020-11-02] MEDS: SEVELAMER CARBONATE 800 MG TABLET. PO SCH ×3 (10:20→17:44)
[2020-11-02] MEDS: LACTOBACILLUS RHAMNOSUS GG 1 CAPSULE. PO SCH ×2 (10:20→20:44)
[2020-11-02] MEDS: CARVEDILOL 6.25 MG TABLET. PO SCH ×2 (10:20→17:44)
[2020-11-02] MEDS: FOLIC/VIT B COMP W-C (RENAL) TABLET. PO SCH (10:20)
[2020-11-02] MEDS: PANTOPRAZOLE 40 MG TABLET.DR. PO SCH (10:20)
--- NOTE | 2020-11-02 10:30 | PDOC ---
DATE OF SERVICE DATE: 11/02/20 TIME: 10:28 SUBJECTIVE ROS Renal Bx was not done,scheduled for Saturday as pt was on ASA OBJECTIVE Vital Signs Vital Signs Date Time Temp Pulse Resp B/P (MAP) Pulse Ox O2 Delivery O2 Flow Rate FiO2 11/02/20 10:20 70 146/77 11/02/20 07:00 98.8 18 94 Room Air 98.8 I & 0 Intake and Output 11/02/20 07:00 Intake Total 120 ml Output Total 0 ml Balance 120 ml Intake Oral 120 ml Output Urine Total 0 ml PHYSICAL EXAM Physical Exam General Appearance: no apparent distress HEEN puffiness around both eyes Skin: warm Respiratory: bilateral CTA Heart: S1S2 Abdomen: soft, bowel sounds present Extremities: pulses present, no edema Neurology: alert, oriented, follow commands Musculoskeletal: Osteoarthritis DIAGNOSIS/ASSESSMENT Assessment & Plan REESE-ATN/ per Nuc med scan , No improvement in renal function, Initiated dialysis on 10/31 . 2nd on 11/02 Hold off today , Monitor Access Temp HDC CT scan Interval resolution of previously seen left hydroureteronephrosis with mild left renal atrophy. No hydronephrosis or nephrolithiasis is seen. Renal Bx cancelled and scheduled for Saturday by IR as pt was on ASA Strict I/O (UOP has not been recorded) , 24 Ur protein low grade(No mention of 24 Ur Volume ) Monitor for renal recovery Explained to pt yesterday and today at great length ? UTI- Pt reports she was treated with Abx by her PCP 1 week prior to her hospitalization probably for UTI . She cant recall the name of the Abx Lt Hydtoureteronephrosis - resolved per CT. history of nephrostomy tube in 2019 at [facility] . Some mention of r/o malignancy by Urology at the time and recommended fu. Not sure if she is following with Urology HyperKalemia - resolved Anemia - stable Labile HTN DM II UTI COMMENT/RELEVANT DATA Meds Current Medications Medications (Trade) Dose Ordered Sig/Nilesh Start Time Stop Time Status Last Admin Dose Admin Acetaminophen (Tylenol) 650 mg PRN Q4HRS PRN 10/26/20 14:45 Albumin Human 200 ml @ 200 mls/hr 1X PRN PRN 11/01/20 14:00 11/01/20 19:59 DC Amlodipine Besylate (Norvasc) 5 mg [id number] 10/29/20 16:00 11/02/20 10:20 5 MG Aspirin (Ecotrin) 81 mg DAILYWBKFT 10/27/20 17:00 10/30/20 14:59 DC 10/30/20 09:21 81 MG Atorvastatin Calcium (Lipitor) 10 mg QHS 10/28/20 21:00 11/01/20 21:13 10 MG Bisacodyl (Dulcolax Tab) 5 mg PRN DAILY PRN 10/26/20 12:00 Carvedilol (Coreg) 6.25 mg BIDWMEALS 10/27/20 17:00 11/02/20 10:20 6.25 MG Ceftriaxone Sodium (Rocephin) 1 gm Q24H 10/27/20 13:00 11/01/20 12:14 1 GM Darbepoetin Storm (ARANESP for DIALYSIS PTS) 60 mcg WEEKLYHS 10/30/20 21:00 10/30/20 21:25 60 MCG Dextrose (Dextrose 50%-Water Syringe) 12.5 gm PRN Q15MIN PRN 10/26/20 14:45 Diphenhydramine HCl (Benadryl) 25 mg 1X PRN PRN 10/31/20 12:45 11/01/20 12:44 DC Docusate Sodium (Colace) 100 mg PRN DAILY PRN 10/26/20 14:45 11/01/20 21:13 100 MG Furosemide (Lasix) 60 mg 1X ONCE 10/29/20 16:00 10/29/20 16:04 DC 10/29/20 16:52 60 MG Info (PHARMACY MONITORING -- do not chart) 1 each PRN DAILY PRN 11/01/20 14:00 Insulin Human Lispro (HumaLOG) 0-9 UNITS TIDWMEALS 10/26/20 17:00 11/01/20 12:24 4 UNITS Labetalol HCl (Normodyne Iv Push) 20 mg PRN Q2HR PRN 10/27/20 16:30 Lactobacillus Rhamnosus (Culturelle) 1 cap BID 10/27/20 21:00 11/02/20 10:20 1 CAP Lidocaine HCl (Buffered Lidocaine 1%) 6 ml 1X ONCE 10/31/20 11:30 10/31/20 11:32 DC 10/31/20 11:30 4 ML Metoprolol Tartrate (Lopressor Vial) 5 mg PRN Q6HRS PRN 10/26/20 13:15 10/26/20 13:15 DC Ondansetron HCl (Zofran) 4 mg PRN Q6HRS PRN 10/26/20 14:45 10/28/20 21:09 4 MG Pantoprazole Sodium (Protonix) 40 mg DAILYAC 10/26/20 12:00 11/02/20 10:20 40 MG Polyethylene Glycol (miraLAX PACKET) 17 gm DAILY 10/26/20 12:00 11/02/20 10:19 17 GM Sennosides (Senna) 17.2 mg PRN BID PRN 10/26/20 14:45 Sevelamer Carbonate (Renvela) 800 mg TIDWMEALS 10/30/20 17:00 11/02/20 10:20 800 MG Sodium Chloride 1,000 ml @ 400 mls/hr Q2H30M PRN 11/01/20 14:00 11/02/20 01:59 DC Sodium Chloride (Normal Saline Flush) 10 ml 1X PRN PRN 11/01/20 14:00 11/02/20 13:59 Vitamin B Complex/ Vitamin C (Sidra-Evens) 1 tab DAILY 10/30/20 17:00 11/02/20 10:20 1 TAB Lab Laboratory Tests Test 11/01/20 11:39 11/01/20 20:28 11/02/20 07:24 11/02/20 08:01 Glucose (Fingerstick) 185 mg/dL (70-99) 278 mg/dL (70-99) 149 mg/dL (70-99) Sodium Level 138 mmol/L (136-145) Potassium Level 4.2 mmol/L (3.5-5.1) Chloride Level 100 mmol/L (98-107) Carbon Dioxide Level 27 mmol/L (21-32) Anion Gap 11 (6-14) Blood Urea Nitrogen 25 mg/dL (7-20) Creatinine 4.3 mg/dL (0.6-1.0) Estimated GFR (Cockcroft-Gault) 10.4 Glucose Level 180 mg/dL (70-99) Calcium Level 9.1 mg/dL (8.5-10.1) Results All relevant outside records, renal labs, imaging studies, telemetry/EKG's were reviewed. Justicifation of Admission Dx: Justifications for Admission: Justification of Admission Dx: Yes CHF: Hemodynamic Instability Acute Renal Failure: RF Can't Be Managed Outpt Chronic Renal Failure: Renail Failure JOLYNN CHOI MD Nov 02, 2020 10:30
[2020-11-02 11:00] VITALS: BP 134/74
[2020-11-02] MEDS: cefTRIAXone IV Push 1 GM VIAL. IVP SCH (14:27)
[2020-11-02 15:00] VITALS: BP 140/81
[2020-11-02 19:00] VITALS: BP 144/77
[2020-11-02] MEDS: ATORVASTATIN CALCIUM 10 MG TABLET. PO SCH (20:44)
[2020-11-02 22:59] VITALS: BP 143/81
[2020-11-03 02:33] VITALS: BP 128/72
[2020-11-03] MEDS: PANTOPRAZOLE 40 MG TABLET.DR. PO SCH (05:35)
[2020-11-03 07:00] VITALS: BP 128/74
[2020-11-03] MEDS: SEVELAMER CARBONATE 800 MG TABLET. PO SCH ×3 (08:27→16:58)
[2020-11-03] MEDS: POLYETHYLENE GLYCOL 3350 17 GM PACKET. PO SCH (08:27)
[2020-11-03] MEDS: INSULIN LISPRO 300 UNITS/3 ML VIAL. SQ SCH ×3 (08:31→17:03)
[2020-11-03 08:48] LABS: CALCIUM 9.3 mg/dL (8.5-10.1); CREATININE 5.4 mg/dL (0.6-1.0); POTASSIUM 4.1 mmol/L (3.5-5.1)
--- NOTE | 2020-11-03 09:15 | PDOC ---
DATE OF SERVICE DATE: 11/03/20 TIME: 09:15 SUBJECTIVE ROS No N/V . No SOB. States she wants to go home OBJECTIVE Vital Signs Vital Signs Date Time Temp Pulse Resp B/P (MAP) Pulse Ox O2 Delivery O2 Flow Rate FiO2 11/03/20 07:00 98.6 66 16 128/74 (92) 99 Room Air 98.6 I & 0 Intake and Output 11/03/20 07:00 Intake Total 120 ml Output Total 2 ml Balance 118 ml Intake Oral 120 ml Output Urine Total 2 ml PHYSICAL EXAM Physical Exam GEN: NAD HEEN puffiness around both eyes . OM moist Skin: warm, No rash Respiratory: bilateral CTA Heart: S1S2 Abdomen: soft, bowel sounds present Extremities: pulses present, no edema Neurology: alert, oriented,grossly normal DIAGNOSIS/ASSESSMENT Assessment & Plan REESE- ATN/ per Nuc med scan , Initiated dialysis on 10/31 . 2nd on 11/02 , Dialysis tomorrow CT scan Interval resolution of previously seen left hydroureteronephrosis with mild left renal atrophy. No hydronephrosis or nephrolithiasis is seen. Renal Bx cancelled and scheduled for Saturday by IR as pt was on ASA Strict I/O (UOP has not been recorded) , 24 Ur protein low grade(No mention of 24 Ur Volume ) Monitor for renal recovery Discussing with patient for past 3 days at great length . Renal function not improving., WILL NEED TUNNELLED HDC PRIOR TO DC AND OP Chair time . Renal Bx scheduled for tomorrow ? UTI- Pt reports she was treated with Abx by her PCP 1 week prior to her hospitalization probably for UTI . She cant recall the name of the Abx Lt Hydtoureteronephrosis - resolved per CT. history of nephrostomy tube in 2019 at [facility] . Some mention of r/o malignancy by Urology at the time and recommended fu. Not sure if she is following with Urology HyperKalemia - resolved Anemia - stable Labile HTN DM II UTI COMMENT/RELEVANT DATA Meds Current Medications Medications (Trade) Dose Ordered Sig/Nilesh Start Time Stop Time Status Last Admin Dose Admin Acetaminophen (Tylenol) 650 mg PRN Q4HRS PRN 10/26/20 14:45 Albumin Human 200 ml @ 200 mls/hr 1X PRN PRN 11/01/20 14:00 11/01/20 19:59 DC Amlodipine Besylate (Norvasc) 5 mg [id number] 10/29/20 16:00 11/02/20 17:44 5 MG Aspirin (Ecotrin) 81 mg DAILYWBKFT 10/27/20 17:00 10/30/20 14:59 DC 10/30/20 09:21 81 MG Atorvastatin Calcium (Lipitor) 10 mg QHS 10/28/20 21:00 11/02/20 20:44 10 MG Bisacodyl (Dulcolax Tab) 5 mg PRN DAILY PRN 10/26/20 12:00 Carvedilol (Coreg) 6.25 mg BIDWMEALS 10/27/20 17:00 11/02/20 17:44 6.25 MG Ceftriaxone Sodium (Rocephin) 1 gm Q24H 10/27/20 13:00 11/02/20 14:27 1 GM Darbepoetin Storm (ARANESP for DIALYSIS PTS) 60 mcg WEEKLYHS 10/30/20 21:00 10/30/20 21:25 60 MCG Dextrose (Dextrose 50%-Water Syringe) 12.5 gm PRN Q15MIN PRN 10/26/20 14:45 Diphenhydramine HCl (Benadryl) 25 mg 1X PRN PRN 10/31/20 12:45 11/01/20 12:44 DC Docusate Sodium (Colace) 100 mg PRN DAILY PRN 10/26/20 14:45 11/01/20 21:13 100 MG Furosemide (Lasix) 60 mg 1X ONCE 10/29/20 16:00 10/29/20 16:04 DC 10/29/20 16:52 60 MG Info (PHARMACY MONITORING -- do not chart) 1 each PRN DAILY PRN 11/01/20 14:00 Insulin Human Lispro (HumaLOG) 0-9 UNITS TIDWMEALS 10/26/20 17:00 11/03/20 08:31 4 UNITS Labetalol HCl (Normodyne Iv Push) 20 mg PRN Q2HR PRN 10/27/20 16:30 Lactobacillus Rhamnosus (Culturelle) 1 cap BID 10/27/20 21:00 11/02/20 20:44 1 CAP Lidocaine HCl (Buffered Lidocaine 1%) 6 ml 1X ONCE 10/31/20 11:30 10/31/20 11:32 DC 10/31/20 11:30 4 ML Metoprolol Tartrate (Lopressor Vial) 5 mg PRN Q6HRS PRN 10/26/20 13:15 10/26/20 13:15 DC Ondansetron HCl (Zofran) 4 mg PRN Q6HRS PRN 10/26/20 14:45 10/28/20 21:09 4 MG Pantoprazole Sodium (Protonix) 40 mg DAILYAC 10/26/20 12:00 11/03/20 05:35 40 MG Polyethylene Glycol (miraLAX PACKET) 17 gm DAILY 10/26/20 12:00 11/03/20 08:27 17 GM Sennosides (Senna) 17.2 mg PRN BID PRN 10/26/20 14:45 Sevelamer Carbonate (Renvela) 800 mg TIDWMEALS 10/30/20 17:00 11/03/20 08:27 800 MG Sodium Chloride 1,000 ml @ 400 mls/hr Q2H30M PRN 11/01/20 14:00 11/02/20 01:59 DC Sodium Chloride (Normal Saline Flush) 10 ml 1X PRN PRN 11/01/20 14:00 11/02/20 13:59 DC Vitamin B Complex/ Vitamin C (Sidra-Evens) 1 tab DAILY 10/30/20 17:00 11/02/20 10:20 1 TAB Lab Laboratory Tests Test 11/02/20 16:50 11/02/20 20:22 11/03/20 07:50 11/03/20 08:26 Glucose (Fingerstick) 220 mg/dL (70-99) 142 mg/dL (70-99) 160 mg/dL (70-99) Sodium Level 136 mmol/L (136-145) Potassium Level 4.1 mmol/L (3.5-5.1) Chloride Level 100 mmol/L (98-107) Carbon Dioxide Level 26 mmol/L (21-32) Anion Gap 10 (6-14) Blood Urea Nitrogen 32 mg/dL (7-20) Creatinine 5.4 mg/dL (0.6-1.0) Estimated GFR (Cockcroft-Gault) 8.0 Glucose Level 163 mg/dL (70-99) Calcium Level 9.3 mg/dL (8.5-10.1) Results All relevant outside records, renal labs, imaging studies, telemetry/EKG's were reviewed. Justicifation of Admission Dx: Justifications for Admission: Justification of Admission Dx: Yes CHF: Hemodynamic Instability Acute Renal Failure: RF Can't Be Managed Outpt Chronic Renal Failure: Renail Failure JOLYNN CHOI MD Nov 03, 2020 09:15
--- NOTE | 2020-11-03 09:21 | NUR ---
MIA following. Discussed with RN, pt from home with , room air, renal diet. Pt wanting to go home. Possible renal biopsy tomorrow (11/04/20). No definitive answer yet as to whether pt will need senior living dialysis or not. MIA will continue to follow. Addendum: 11/03/20 at 1216 by GOMEZ BELLAMY Pt needing chair time arranged for terminal manager dialysis. MIA met with pt, pt does not have a preference really, just somewhere near to her home. MIA faxed referral to [facility], awaiting chest xray. Pt getting permanent cath placed tomorrow (11/04/20). RN notified. MIA will continue to follow. Addendum: 11/03/20 at 1237 by GOMEZ BELLAMY [facility] contacted MIA with a tentative chair time pending the chest xray and approval from the [facility]. T, TH, SA, shift 1 at [facility] [address], [place], [address]. Awaiting chest xray report to fax to [facility]. RN notified. Addendum: 11/03/20 at 1515 by GOMEZ BELLAMY MIA faxed chest xray report to [facility] Admission. Awaiting confirmation of chair time. MIA will continue to follow. Addendum: 11/03/20 at 1622 by GOMEZ BELLAMY Pt requesting information on copays etc for dialysis. MIA contacted pt's insurance and verified pt has a $1300 deductible, once met [employer] will pay 80% and patient will pay 20%. Once out of pocket max of $3200 is met, [employer] will cover dialysis at 100%. SW provided this information to pt. Pt expressing concern about doing permanent dialysis when the doctors don't really know for certain if she needs that. Pt would prefer to do the renal biopsy, await the results and then do dialysis if that is what is recommended and the only treatment option. Pt reported she has been told she could recover, and wants to be able to "try" to recover without dialysis. Pt reported if the biopsy results indicate she has no choice but to do dialysis, then she will do it. RN notified. Dr. Nguyen will be notified tomorrow. MIA will continue to follow.
--- NOTE | 2020-11-03 10:26 | PDOC ---
Date of Service: DATE: 11/03/20 TIME: 10:24 Subjective: Subjective: Feels fine, would like to go home. Objective: Objective: D/w nurse - renal biopsy tomorrow? Vital Signs: Vital Signs Date Time Temp Pulse Resp B/P (MAP) Pulse Ox O2 Delivery O2 Flow Rate FiO2 11/03/20 07:00 98.6 66 16 128/74 (92) 99 Room Air 98.6 Labs: Laboratory Tests Test 11/02/20 16:50 11/02/20 20:22 11/03/20 07:50 11/03/20 08:26 Glucose (Fingerstick) 220 mg/dL 142 mg/dL 160 mg/dL Sodium Level 136 mmol/L Potassium Level 4.1 mmol/L Chloride Level 100 mmol/L Carbon Dioxide Level 26 mmol/L Anion Gap 10 Blood Urea Nitrogen 32 mg/dL Creatinine 5.4 mg/dL Estimated GFR (Cockcroft-Gault) 8.0 Glucose Level 163 mg/dL Calcium Level 9.3 mg/dL PE: GEN: NAD LUNGS: CTAB HEART: RRR ABD: NABS, S/ND/NT NEURO/PSYCH: A & O 3 A/P: REESE/CKD/ESRD Anemia (normal iron) - stable Elevated lipase on admission - unclear significance, normal pancreas on CT, no symptoms of pancreatitis GERD - on PPI Rapid COVID negative 10/31 -- Stable GI-calvo. Justicifation of Admission Dx: Justifications for Admission: Justification of Admission Dx: Yes CHF: Hemodynamic Instability Acute Renal Failure: RF Can't Be Managed Outpt Chronic Renal Failure: Renail Failure KIRTI JIMENEZ Nov 03, 2020 10:26
--- NOTE | 2020-11-03 10:43 | PDOC ---
PROGRESS NOTES Date of Service: DATE: 11/03/20 TIME: 10:33 Chief Complaint Chief Complaint Impression Assessment/Plan Acute hypertensive emergency Acute renal failure remote history of a cyst drainage percutaneously done in February 2019. had a nephrostomy tube that was placed but that was removed by urology around that time. hyponatremia hyperkalemia Normocytic anemia Elevated lipase Cholelithiasis. diabetes stress test showed mixed perfusion defect involving the mid to distal anterior and anterolateral avalos consistent with small infarct and moderate amount of ischemia. 2018 Mid to distal anterior wall hypokinesis with ejection fraction calculated at 50%. on echo Uremia Anemia of chronic inflammation elevated lipase due to renal failure Diabetes mellitus type 2 RENAL BX scheduled for 10/31/2020 has been rescheduled for RENAL SCAN done and consistent with ATN plan Follow nephrology business systems consultant recommendations, dialysis as per business systems consultant Scheduled for biopsy in the a.m. since patient has been on aspirin R ISS and Accu-Cheks IV labetalol as needed for systolic blood pressure goals less than 180 Heparin for DVT prophylaxis ADA diet Full code Discussed with RN and SW Disposition inpatient management Surrogate decision maker is the Hoping to be able to go home soon 35 min pt exam, chart review, > 50% of time spent with exam, chart review, pt care coordination Justifications for Admission Justifications for Admission Other Justification ACUTE SEVERE RENAL FAILURE, RTN History of Present Illness History of Present Illness Chief Complaint: Chief Complain: dizziness and weakness History of Present Illness: HPI: Patient is a 60-year-old female with past medical history of diabetes mellitus type 2 who comes in with complaints of dizziness and weakness in her lower extremities. She also had some right-sided flank pain in which she had a injection trigger point last week and said that her pain improved slightly with that. However, she has been dealing with this dizziness for the past couple of weeks. Patient denies any fevers, chills, rashes, chest pain or shortness of breath or abdominal pain or dysuria. Patient does have a history of diabetes which she takes Metformin as she said that she takes other medications in which she said that she does not feel good taking them. Patient did have some outpatient lab work done at that is why she came because they stated that she had some renal failure. Patient does also have a remote history of a cyst drainage percutaneously done in February 2019. She also had a nephrostomy tube that was placed but that was removed by urology around that time. Denies kidney stones, dysuria, hematuria or incontinence or frequency. Of note, patient was recently admitted to the hospital for treatment for pneumonia and she was taking Levaquin at that time. 30 cr remains elevated at 7.1 , 700cc urine output [id number] STABLE BUT RENAL FUNCTION NOT RECOVERING WELL CR 7.4 2-1 no acute events reported overnight, case discussed with nursing staff patient in no acute distress no complaints during my visit 2-2 Patient with no new complaints feeling better no concerns voiced during my encounter 2-3 no acute events reported overnight, case discussed with nursing staff patient in no acute distress no complaints during my visit 2-4 patient hoping to go home soon, patient denies any acute events reported overnight her urination has gotten better and she understands that her numbers are coming down. Plan of care explained in detail all concerns addressed to the best of my ability Vitals Vitals Vital Signs Date Time Temp Pulse Resp B/P (MAP) Pulse Ox O2 Delivery O2 Flow Rate FiO2 11/03/20 07:00 98.6 66 16 128/74 (92) 99 Room Air 98.6 Physical Exam Physical Exam GEN: No apparent distress. Alert and oriented HEENT: Normal cephalic, atraumatic, external auditory canals are patent EYES: Extraocular muscles are intact, pupil are equally round and reactive to light and accommodation MUSCULOSKELETAL: Well developed , well nourished, good range of motion ENDOCRINE: No thyromegaly was palpated LYMPHATICS: No cervical chain or axillary nodes were noted HEMATOPOIETIC: No bruising NECK: Supple, no JVD, no thyromegaly was noted LUNGS: Clear to auscultation in all lung guerrero without rhonchi or wheezing HEART: RRR, S!, S2 present. Peripheral pulses intact, no obvious murmurs noted ABDOMEN: Soft, nontender. Positive bowel sounds, no organomegaly, normal bowel sounds EXTREMITIES: Without clubbing, cyanosis, or edema. Pedal pulses intact. Negative Homans sign NEUROLOGIC: Normal speech and tone. A&O x 3, moves all extremities, no obvio us focal deficits PSYCHIATRIC: Normal affect, normal mood. Stable SKIN: No ulcerations or rashes, good skin turgor, no jaundice VASCULAR: Good capillary refill, neurovascular bundle appears to be intact General: Alert, Oriented X3, Cooperative, No acute distress Heart: Regular rate (SR), Normal S1, Normal S2, No murmurs Lungs: Clear Abdomen: Normal bowel sounds, Soft, No tenderness Extremities: No cyanosis, No edema Skin: No breakdown, No significant lesion Labs LABS Laboratory Tests Test 11/02/20 16:50 11/02/20 20:22 11/03/20 07:50 11/03/20 08:26 Glucose (Fingerstick) 220 mg/dL (70-99) 142 mg/dL (70-99) 160 mg/dL (70-99) Sodium Level 136 mmol/L (136-145) Potassium Level 4.1 mmol/L (3.5-5.1) Chloride Level 100 mmol/L (98-107) Carbon Dioxide Level 26 mmol/L (21-32) Anion Gap 10 (6-14) Blood Urea Nitrogen 32 mg/dL (7-20) Creatinine 5.4 mg/dL (0.6-1.0) Estimated GFR (Cockcroft-Gault) 8.0 Glucose Level 163 mg/dL (70-99) Calcium Level 9.3 mg/dL (8.5-10.1) Review of Systems Review of Systems Review of systems pertinent as per HPI otherwise 14 point review of system is negative Assessment and Plan Assessmemt and Plan Problems Medical Problems: (1) Acute pancreatitis Status: Acute (2) ARF (acute renal failure) Status: Acute Comment Review of Relevant I have reviewed the following items misha (where applicable) has been applied. Labs Laboratory Tests Test 11/01/20 11:39 11/01/20 20:28 11/02/20 07:24 11/02/20 08:01 Glucose (Fingerstick) 185 mg/dL (70-99) 278 mg/dL (70-99) 149 mg/dL (70-99) Sodium Level 138 mmol/L (136-145) Potassium Level 4.2 mmol/L (3.5-5.1) Chloride Level 100 mmol/L (98-107) Carbon Dioxide Level 27 mmol/L (21-32) Anion Gap 11 (6-14) Blood Urea Nitrogen 25 mg/dL (7-20) Creatinine 4.3 mg/dL (0.6-1.0) Estimated GFR (Cockcroft-Gault) 10.4 Glucose Level 180 mg/dL (70-99) Calcium Level 9.1 mg/dL (8.5-10.1) Test 11/02/20 16:50 11/02/20 20:22 11/03/20 07:50 11/03/20 08:26 Glucose (Fingerstick) 220 mg/dL (70-99) 142 mg/dL (70-99) 160 mg/dL (70-99) Sodium Level 136 mmol/L (136-145) Potassium Level 4.1 mmol/L (3.5-5.1) Chloride Level 100 mmol/L (98-107) Carbon Dioxide Level 26 mmol/L (21-32) Anion Gap 10 (6-14) Blood Urea Nitrogen 32 mg/dL (7-20) Creatinine 5.4 mg/dL (0.6-1.0) Estimated GFR (Cockcroft-Gault) 8.0 Glucose Level 163 mg/dL (70-99) Calcium Level 9.3 mg/dL (8.5-10.1) Laboratory Tests Test 11/02/20 16:50 11/02/20 20:22 11/03/20 07:50 11/03/20 08:26 Glucose (Fingerstick) 220 mg/dL (70-99) 142 mg/dL (70-99) 160 mg/dL (70-99) Sodium Level 136 mmol/L (136-145) Potassium Level 4.1 mmol/L (3.5-5.1) Chloride Level 100 mmol/L (98-107) Carbon Dioxide Level 26 mmol/L (21-32) Anion Gap 10 (6-14) Blood Urea Nitrogen 32 mg/dL (7-20) Creatinine 5.4 mg/dL (0.6-1.0) Estimated GFR (Cockcroft-Gault) 8.0 Glucose Level 163 mg/dL (70-99) Calcium Level 9.3 mg/dL (8.5-10.1) Microbiology 10/26/20 Blood Culture - Final, Complete NO GROWTH AFTER 5 DAYS 10/26/20 Urine Culture - Final, Complete Medications Current Medications Sodium Chloride 1,000 ml @ 100 mls/hr 1X ONCE IV Last administered on 10/26/20at 11:28; Start 10/26/20 at 10:30; Stop 10/26/20 at 20:29; Status DC Ceftriaxone Sodium (Rocephin) 1 gm 1X ONCE IVP Last administered on 10/26/20at 11:28; Start 10/26/20 at 12:00; Stop 10/26/20 at 12:01; Status DC Pantoprazole Sodium (Protonix) 40 mg DAILYAC PO Last administered on 11/03/20at 05:35; Start 10/26/20 at 12:00 Polyethylene Glycol (miraLAX PACKET) 17 gm DAILY PO Last administered on 11/03/20at 08:27; Start 10/26/20 at 12:00 Bisacodyl (Dulcolax Tab) 5 mg PRN DAILY PRN PO CONSTIPATION, 2ND CHOICE; Start 10/26/20 at 12:00 Metoprolol Tartrate (Lopressor Vial) 5 mg PRN Q6HRS PRN IVP HYPERTENSION, 1ST CHOICE; Start 10/26/20 at 13:15; Stop 10/26/20 at 13:15; Status DC Labetalol HCl (Normodyne Iv Push) 20 mg PRN Q2HR PRN IVP HYPERTENSION; Start 10/26/20 at 13:15; Stop 10/26/20 at 13:20; Status DC Labetalol HCl (Normodyne Iv Push) 10 mg PRN Q2HR PRN IVP HYPERTENSION Last administered on 10/26/20at 13:27; Start 10/26/20 at 13:30; Stop 10/28/20 at 12:06; Status DC Insulin Human Lispro (HumaLOG) 0-9 UNITS TIDWMEALS SQ Last administered on 11/03/20at 08:31; Start 10/26/20 at 17:00 Dextrose (Dextrose 50%-Water Syringe) 12.5 gm PRN Q15MIN PRN IV SEE COMMENTS; Start 10/26/20 at 14:45; Stop 10/26/20 at 14:48; Status DC Sennosides (Senna) 17.2 mg PRN BID PRN PO CONSTIPATION. 1ST CHOICE; Start 10/26/20 at 14:45 Docusate Sodium (Colace) 100 mg PRN DAILY PRN PO HARD STOOLS Last administered on 11/01/20at 21:13; Start 10/26/20 at 14:45 Ondansetron HCl (Zofran) 4 mg PRN Q6HRS PRN IVP NAUSEA/VOMITING Last administered on 10/28/20at 21:09; Start 10/26/20 at 14:45 Dextrose (Dextrose 50%-Water Syringe) 12.5 gm PRN Q15MIN PRN IV SEE COMMENTS; Start 10/26/20 at 14:45 Acetaminophen (Tylenol) 650 mg PRN Q4HRS PRN PO TEMP OVER 100.4F OR MILD PAIN; Start 10/26/20 at 14:45 Sodium Chloride 1,000 ml @ 60 mls/hr [id number] IV Last administered on 10/30/20at 21:26; Start 10/26/20 at 17:30 Amlodipine Besylate (Norvasc) 5 mg DAILY PO Last administered on 10/29/20at 10:23; Start 10/27/20 at 13:00; Stop 10/29/20 at 12:33; Status DC Ceftriaxone Sodium (Rocephin) 1 gm Q24H IVP Last administered on 11/02/20at 14:27; Start 10/27/20 at 13:00 Lactobacillus Rhamnosus (Culturelle) 1 cap BID PO Last administered on 11/02/20 20:44; Start 10/27/20 at 21:00 Aspirin (Ecotrin) 81 mg DAILYWBKFT PO Last administered on 10/30/20at 09:21; Start 10/27/20 at 17:00; Stop 10/30/20 at 14:59; Status DC Carvedilol (Coreg) 6.25 mg BIDWMEALS PO Last administered on 11/02/20at 17:44; Start 10/27/20 at 17:00 Labetalol HCl (Normodyne Iv Push) 20 mg PRN Q2HR PRN IVP HYPERTENSION; Start 10/27/20 at 16:30 Atorvastatin Calcium (Lipitor) 10 mg QHS PO Last administered on 11/02/20at 20:4 4; Start 10/28/20 at 21:00 Amlodipine Besylate (Norvasc) 5 mg [id number] PO Last administered on 11/02/20 17:44; Start 10/29/20 at 16:00 Furosemide (Lasix) 60 mg 1X ONCE IVP Last administered on 10/29/20at 16:52; Start 10/29/20 at 16:00; Stop 10/29/20 at 16:04; Status DC Sevelamer Carbonate (Renvela) 800 mg TIDWMEALS PO Last administered on 11/03/20at 08:27; Start 10/30/20 at 17:00 Vitamin B Complex/ Vitamin C (Sidra-Evens) 1 tab DAILY PO Last administered on 11/02/20at 10:20; Start 10/30/20 at 17:00 Darbepoetin Storm (ARANESP for DIALYSIS PTS) 60 mcg WEEKLYHS SQ Last administered on 10/30/20at 21:25; Start 10/30/20 at 21:00 Lidocaine HCl (Buffered Lidocaine 1%) 3 ml STK-MED ONCE .ROUTE ; Start 10/31/20 at 11:23; Stop 10/31/20 at 11:23; Status DC Lidocaine HCl (Buffered Lidocaine 1%) 6 ml 1X ONCE INJ Last administered on 10/31/20at 11:30; Start 10/31/20 at 11:30; Stop 10/31/20 at 11:32; Status DC Sodium Chloride 1,000 ml @ 1,000 mls/hr Q1H PRN IV hypotension; Start 10/31/20 at 12:45; Stop 10/31/20 at 18:44; Status DC Diphenhydramine HCl (Benadryl) 25 mg 1X PRN PRN IV ITCHING; Start 10/31/20 at 12:45; Stop 11/01/20 at 12:44; Status DC Diphenhydramine HCl (Benadryl) 25 mg 1X PRN PRN IV ITCHING; Start 10/31/20 at 12:45; Stop 11/01/20 at 12:44; Status DC Sodium Chloride 1,000 ml @ 400 mls/hr Q2H30M PRN IV PATENCY; Start 10/31/20 at 12:45; Stop 11/01/20 at 00:44; Status DC Info (PHARMACY MONITORING -- do not chart) 1 each PRN DAILY PRN MC SEE COMMENTS; Start 10/31/20 at 12:45; Stop 11/02/20 at 11:49; Status DC Sodium Chloride 1,000 ml @ 1,000 mls/hr Q1H PRN IV hypotension; Start 11/01/20 at 14:00; Stop 11/01/20 at 19:59; Status DC Albumin Human 200 ml @ 200 mls/hr 1X PRN PRN IV Hypotension; Start 11/01/20 at 14:00; Stop 11/01/20 at 19:59; Status DC Sodium Chloride (Normal Saline Flush) 10 ml 1X PRN PRN IV AP catheter pack; Start 11/01/20 at 14:00; Stop 11/02/20 at 13:59; Status DC Sodium Chloride (Normal Saline Flush) 10 ml 1X PRN PRN IV MANUSCRIPTS ARCHIVIST catheter pack; Start 11/01/20 at 14:00; Stop 11/02/20 at 13:59; Status DC Sodium Chloride 1,000 ml @ 400 mls/hr Q2H30M PRN IV PATENCY; Start 11/01/20 at 14:00; Stop 11/02/20 at 01:59; Status DC Info (PHARMACY MONITORING -- do not chart) 1 each PRN DAILY PRN MC SEE COMMENTS; Start 11/01/20 at 14:00; Stop 11/02/20 at 11:49; Status DC Info (PHARMACY MONITORING -- do not chart) 1 each PRN DAILY PRN MC SEE COMMENTS; Start 11/01/20 at 14:00 Active Scripts Active Reported Aspir-Low (Aspirin) 81 Mg Tablet.dr 1 Tab PO DAILY Metformin Hcl Er (Metformin Hcl) 500 Mg Tab.er.24h 500 Mg PO BIDWMEALS Vitals/I & O Vital Sign - Last 24 Hours 11/02/20 11/02/20 11/02/20 11/02/20 11:00 15:00 17:44 17:44 Temp 98.9 98.6 98.9 98.6 Pulse 75 76 76 76 Resp 18 18 B/P (MAP) 134/74 (94) 140/81 (100) 140/81 140/81 Pulse Ox 93 96 O2 Delivery Room Air Room Air 11/02/20 11/02/20 11/02/20 11/03/20 19:00 19:15 22:59 02:33 Temp 98.6 98.4 98.0 98.6 98.4 98.0 Pulse 73 71 66 Resp 20 18 18 B/P (MAP) 144/77 (99) 143/81 (101) 128/72 (90) Pulse Ox 97 94 97 O2 Delivery Room Air Room Air Room Air Room Air 11/03/20 07:00 Temp 98.6 98.6 Pulse 66 Resp 16 B/P (MAP) 128/74 (92) Pulse Ox 99 O2 Delivery Room Air l Intake and Output 11/02/20 11/02/20 11/03/20 15:00 23:00 07:00 Intake Total 120 ml Output Total 1 ml 1 ml Balance -1 ml 119 ml Justicifation of Admission Dx: Justifications for Admission: Justification of Admission Dx: Yes CHF: Hemodynamic Instability Acute Renal Failure: RF Can't Be Managed Outpt Chronic Renal Failure: Renail Failure RENARD DUENAS MD Nov 03, 2020 10:43
[2020-11-03 11:00] VITALS: BP 134/73
[2020-11-03] MEDS: FOLIC/VIT B COMP W-C (RENAL) TABLET. PO SCH (12:14)
[2020-11-03] MEDS: LACTOBACILLUS RHAMNOSUS GG 1 CAPSULE. PO SCH ×2 (12:14→21:50)
[2020-11-03] MEDS: CARVEDILOL 6.25 MG TABLET. PO SCH ×2 (12:14→16:59)
[2020-11-03] MEDS: cefTRIAXone IV Push 1 GM VIAL. IVP SCH (12:15)
--- NOTE | 2020-11-03 14:51 | RAD ---
Portable chest x-ray compared to similar radiographs dated October 182020 for dialysis placement. FINDINGS: IJ temporary hemodialysis catheter appropriately positioned suitable for use. Borderline cardiomegaly is stable. Small left basilar opacity appears grossly unchanged from October 18, 2019, and may refle ct scarring or atelectasis. No new lung parenchymal abnormalities. IMPRESSION: 1. New right IJ temporary hemodialysis catheter is suitable for use. Electronically signed by: Jose Larkin MD (11/03/2020 2:49 PM) [id number]
[2020-11-03 15:00] VITALS: BP 129/77
[2020-11-03] MEDS: IV NORMAL SALINE 1000ML BAG 1,000 ML IV SCH (16:48)
[2020-11-03 19:00] VITALS: BP 143/77
[2020-11-03] MEDS: ATORVASTATIN CALCIUM 10 MG TABLET. PO SCH (21:50)
[2020-11-03 23:00] VITALS: BP 113/61
[2020-11-04] VITALS (13 sets, daily range): BP systolic 100–150; BP diastolic 64–83
[2020-11-04] MEDS: PANTOPRAZOLE 40 MG TABLET.DR. PO SCH (07:30)
[2020-11-04] MEDS: INSULIN LISPRO 300 UNITS/3 ML VIAL. SQ SCH ×3 (08:00→17:39)
[2020-11-04] MEDS: CARVEDILOL 6.25 MG TABLET. PO SCH ×2 (08:00→16:38)
[2020-11-04] MEDS: SEVELAMER CARBONATE 800 MG TABLET. PO SCH ×3 (08:00→16:37)
[2020-11-04] MEDS ORDERED: ALBUMIN HUMAN 25% 200 ML IV PRN (08:15)
[2020-11-04] MEDS ORDERED: DIALYSIS PATIENT. MC PRN ×2 (08:15)
[2020-11-04] MEDS ORDERED: IV NORMAL SALINE 1000ML BAG 1,000 ML IV PRN ×2 (08:15)
[2020-11-04 08:43] LABS: ALBUMIN 3.1 g/dL (3.4-5.0); CALCIUM 9.4 mg/dL (8.5-10.1); CREATININE 6.5 mg/dL (0.6-1.0); GFR 6.5; POTASSIUM 4.2 mmol/L (3.5-5.1)
[2020-11-04] MEDS: FOLIC/VIT B COMP W-C (RENAL) TABLET. PO SCH (09:00)
[2020-11-04] MEDS: LACTOBACILLUS RHAMNOSUS GG 1 CAPSULE. PO SCH (09:00)
[2020-11-04] MEDS: POLYETHYLENE GLYCOL 3350 17 GM PACKET. PO SCH (09:00)
[2020-11-04] MEDS: ONDANSETRON PF 4 MG/2 ML VIAL. IVP PRN (09:16)
--- NOTE | 2020-11-04 09:26 | PDOC ---
Date of Service: DATE: 11/04/20 TIME: 09:23 Objective: Vital Signs: Vital Signs Date Time Temp Pulse Resp B/P (MAP) Pulse Ox O2 Delivery O2 Flow Rate FiO2 11/04/20 07:00 98.3 68 18 150/83 (105) 97 Room Air 98.3 Labs: Laboratory Tests Test 11/03/20 11:59 11/03/20 16:57 11/03/20 21:48 11/04/20 07:40 Glucose (Fingerstick) 192 mg/dL 156 mg/dL 182 mg/dL Sodium Level 136 mmol/L Potassium Level 4.2 mmol/L Chloride Level 99 mmol/L Carbon Dioxide Level 25 mmol/L Anion Gap 12 Blood Urea Nitrogen 36 mg/dL Creatinine 6.5 mg/dL Estimated GFR (Cockcroft-Gault) 6.5 Glucose Level 146 mg/dL Calcium Level 9.4 mg/dL Phosphorus Level 5.0 mg/dL Albumin 3.1 g/dL Test 11/04/20 07:52 Glucose (Fingerstick) 146 mg/dL Imaging: CXR 11/03 IMPRESSION: 1. New right IJ temporary hemodialysis catheter is suitable for use. PE: out of room A/P: REESE/ESRD Anemia (normal iron) GERD - on PPI Rapid COVID negative 10/31 -- Stable GI-calvo. Justicifation of Admission Dx: Justifications for Admission: Justification of Admission Dx: Yes CHF: Hemodynamic Instability Acute Renal Failure: RF Can't Be Managed Outpt Chronic Renal Failure: Renail Failure KIRTI JIMENEZ Nov 04, 2020 09:26
[2020-11-04] MEDS: IV NORMAL SALINE 1000ML BAG 1,000 ML IV SCH (09:28)
--- NOTE | 2020-11-04 09:29 | PDOC ---
DATE OF SERVICE DATE: 11/04/20 TIME: 09:28 SUBJECTIVE ROS No N/V . No SOB. States she wants to go home OBJECTIVE Vital Signs Vital Signs Date Time Temp Pulse Resp B/P (MAP) Pulse Ox O2 Delivery O2 Flow Rate FiO2 11/04/20 07:00 98.3 68 18 150/83 (105) 97 Room Air 98.3 I & 0 Intake and Output 11/04/20 07:00 Intake Total 1940 ml Output Total 200 ml Balance 1740 ml Intake Oral 1940 ml Output Urine Total 200 ml # Voids 4 PHYSICAL EXAM Physical Exam GEN: NAD HEEN puffiness around both eyes . OM moist Skin: warm, No rash Respiratory: bilateral CTA Heart: S1S2 Abdomen: soft, bowel sounds present Extremities: pulses present, no edema Neurology: alert, oriented,grossly normal DIAGNOSIS/ASSESSMENT Assessment & Plan REESE- ATN/ per Nuc med scan , Initiated dialysis on 10/31 . 2nd on 11/02 , seen on HD today(3 red treatment) tolerating well, continue as ordered , No renal recovery CT scan Interval resolution of previously seen left hydroureteronephrosis with mild left renal atrophy. No hydronephrosis or nephrolithiasis is seen. Strict I/O (UOP has not been recorded) , 24 Ur protein low grade(No mention of 24 Ur Volume ) Monitor for renal recovery Renal Bx and Permcath placement scheduled for today , OP chair time per SW, Monitor for renal recovery ? UTI- Pt reports she was treated with Abx by her PCP 1 week prior to her hospitalization probably for UTI . She cant recall the name of the Abx Lt Hydtoureteronephrosis - resolved per CT. history of nephrostomy tube in [address] [facility] . Some mention of r/o malignancy by Urology at the time and recommended fu. Not sure if she is following with Urology Anemia - stable Labile HTN DM II UTI COMMENT/RELEVANT DATA Meds Current Medications Medications (Trade) Dose Ordered Sig/Nilesh Start Time Stop Time Status Last Admin Dose Admin Acetaminophen (Tylenol) 650 mg PRN Q4HRS PRN 10/26/20 14:45 Albumin Human 200 ml @ 200 mls/hr 1X PRN PRN 11/04/20 08:15 11/04/20 14:14 Amlodipine Besylate (Norvasc) 5 mg [id number] 10/29/20 16:00 11/03/20 16:59 5 MG Aspirin (Ecotrin) 81 mg DAILYWBKFT 10/27/20 17:00 10/30/20 14:59 DC 10/30/20 09:21 81 MG Atorvastatin Calcium (Lipitor) 10 mg QHS 10/28/20 21:00 11/03/20 21:50 10 MG Bisacodyl (Dulcolax Tab) 5 mg PRN DAILY PRN 10/26/20 12:00 11/03/20 21:55 5 MG Carvedilol (Coreg) 6.25 mg BIDWMEALS 10/27/20 17:00 11/03/20 16:59 6.25 MG Ceftriaxone Sodium (Rocephin) 1 gm Q24H 10/27/20 13:00 11/03/20 12:15 1 GM Darbepoetin Storm (ARANESP for DIALYSIS PTS) 60 mcg WEEKLYHS 10/30/20 21:00 10/30/20 21:25 60 MCG Dextrose (Dextrose 50%-Water Syringe) 12.5 gm PRN Q15MIN PRN 10/26/20 14:45 Diphenhydramine HCl (Benadryl) 25 mg 1X PRN PRN 10/31/20 12:45 11/01/20 12:44 DC Docusate Sodium (Colace) 100 mg PRN DAILY PRN 10/26/20 14:45 11/01/20 21:13 100 MG Furosemide (Lasix) 60 mg 1X ONCE 10/29/20 16:00 10/29/20 16:04 DC 10/29/20 16:52 60 MG Info (PHARMACY MONITORING -- do not chart) 1 each PRN DAILY PRN 11/04/20 08:15 UNV Insulin Human Lispro (HumaLOG) 0-9 UNITS TIDWMEALS 10/26/20 17:00 11/03/20 17:03 4 UNITS Labetalol HCl (Normodyne Iv Push) 20 mg PRN Q2HR PRN 10/27/20 16:30 Lactobacillus Rhamnosus (Culturelle) 1 cap BID 10/27/20 21:00 11/03/20 21:50 1 CAP Lidocaine HCl (Buffered Lidocaine 1%) 6 ml 1X ONCE 10/31/20 11:30 10/31/20 11:32 DC 10/31/20 11:30 4 ML Metoprolol Tartrate (Lopressor Vial) 5 mg PRN Q6HRS PRN 10/26/20 13:15 10/26/20 13:15 DC Ondansetron HCl (Zofran) 4 mg PRN Q6HRS PRN 10/26/20 14:45 11/04/20 09:16 4 MG Pantoprazole Sodium (Protonix) 40 mg DAILYAC 10/26/20 12:00 11/03/20 05:35 40 MG Polyethylene Glycol (miraLAX PACKET) 17 gm DAILY 10/26/20 12:00 11/03/20 08:27 17 GM Sennosides (Senna) 17.2 mg PRN BID PRN 10/26/20 14:45 11/03/20 21:55 17.2 MG Sevelamer Carbonate (Renvela) 800 mg TIDWMEALS 10/30/20 17:00 11/03/20 16:58 800 MG Sodium Chloride 1,000 ml @ 400 mls/hr Q2H30M PRN 11/04/20 08:15 11/04/20 20:14 Sodium Chloride (Normal Saline Flush) 10 ml 1X PRN PRN 11/01/20 14:00 11/02/20 13:59 DC Vitamin B Complex/ Vitamin C (Sidra-Evens) 1 tab DAILY 10/30/20 17:00 11/03/20 12:14 1 TAB Lab Laboratory Tests Test 11/03/20 11:59 11/03/20 16:57 11/03/20 21:48 11/04/20 07:40 Glucose (Fingerstick) 192 mg/dL (70-99) 156 mg/dL (70-99) 182 mg/dL (70-99) Sodium Level 136 mmol/L (136-145) Potassium Level 4.2 mmol/L (3.5-5.1) Chloride Level 99 mmol/L (98-107) Carbon Dioxide Level 25 mmol/L (21-32) Anion Gap 12 (6-14) Blood Urea Nitrogen 36 mg/dL (7-20) Creatinine 6.5 mg/dL (0.6-1.0) Estimated GFR (Cockcroft-Gault) 6.5 Glucose Level 146 mg/dL (70-99) Calcium Level 9.4 mg/dL (8.5-10.1) Phosphorus Level 5.0 mg/dL (2.6-4.7) Albumin 3.1 g/dL (3.4-5.0) Test 11/04/20 07:52 Glucose (Fingerstick) 146 mg/dL (70-99) Results All relevant outside records, renal labs, imaging studies, telemetry/EKG's were reviewed. Justicifation of Admission Dx: Justifications for Admission: Justification of Admission Dx: Yes CHF: Hemodynamic Instability Acute Renal Failure: RF Can't Be Managed Outpt Chronic Renal Failure: Renail Failure JOLYNN CHOI MD Nov 04, 2020 09:29
--- NOTE | 2020-11-04 09:45 | NUR ---
MIA following. Discussed with RN, pt from home, room air, renal diet. Pt having a renal biopsy and dialysis today. Plans for pt to discharge home after this, pt declining outpatient dialysis at this time. Pt is a high risk readmission due to declining dialysis. MIA will continue to follow. Addendum: 11/04/20 at 1519 by GOMEZ BELLAMY MIA faxed tunneled cath placement report to [facility]. Pt's chair time is at [facility] starting tomorrow (11/05/20) at 0545am and after tomorrow it will be at 0600. RN and pt notified. Pt wanting to discharge home today. MIA sent message to Dr. Mckeon to notify. MIA will continue to follow. Addendum: 11/04/20 at 1539 by GOMEZ BELLAMY MIA notified [facility] of pt discharging. No further SW needs.
--- NOTE | 2020-11-04 10:17 | PDOC ---
PROGRESS NOTES Date of Service: DATE: 11/04/20 TIME: 10:16 Chief Complaint Chief Complaint Impression Assessment/Plan Acute hypertensive emergency Acute renal failure etioilgy undetermined, history of recent antibiotic use for UTI in the outpatient setting unknown name remote history of a cyst drainage percutaneously done in February 2019. had a nephrostomy tube that was placed but that was removed by urology around that time. hyponatremia hyperkalemia Normocytic anemia Elevated lipase Cholelithiasis. diabetes stress test showed mixed perfusion defect involving the mid to distal anterior and anterolateral avalos consistent with small infarct and moderate amount of ischemia. 2018 Mid to distal anterior wall hypokinesis with ejection fraction calculated at 50%. on echo Uremia Anemia of chronic inflammation elevated lipase due to renal failure Diabetes mellitus type 2 RENAL BX scheduled for 10/31/2020 has been rescheduled for RENAL SCAN done and consistent with ATN plan Follow nephrology managed services consultant recommendations, dialysis as per managed services consultant today Scheduled for biopsy and permacath placement, if cleared by consultants she may be discharged later in the day R ISS and Accu-Cheks IV labetalol as needed for systolic blood pressure goals less than 180 Heparin for DVT prophylaxis ADA diet Full code Discussed with RN and SW Disposition inpatient management Surrogate decision maker is the Hoping to be able to go home soon 35 min pt exam, chart review, > 50% of time spent with exam, chart review, pt care coordination Justifications for Admission Justifications for Admission Other Justification ACUTE SEVERE RENAL FAILURE, RTN History of Present Illness History of Present Illness Chief Complaint: Chief Complain: dizziness and weakness History of Present Illness: HPI: Patient is a 60-year-old female with past medical history of diabetes mellitus type 2 who comes in with complaints of dizziness and weakness in her lower extremities. She also had some right-sided flank pain in which she had a injection trigger point last week and said that her pain improved slightly with that. However, she has been dealing with this dizziness for the past couple of weeks. Patient denies any fevers, chills, rashes, chest pain or shortness of breath or abdominal pain or dysuria. Patient does have a history of diabetes which she takes Metformin as she said that she takes other medications in which she said that she does not feel good taking them. Patient did have some outpatient lab work done at that is why she came because they stated that she had some renal failure. Patient does also have a remote history of a cyst drainage percutaneously done in February 2019. She also had a nephrostomy tube that was placed but that was removed by urology around that time. Denies kidney stones, dysuria, hematuria or incontinence or frequency. Of note, patient was recently admitted to the hospital for treatment for pneumonia and she was taking Levaquin at that time. 10-29 cr remains elevated at 7.1 , 700cc urine output 10-28 STABLE BUT RENAL FUNCTION NOT RECOVERING WELL CR 7.4 2-1 no acute events reported overnight, case discussed with nursing staff patient in no acute distress no complaints during my visit 2-2 Patient with no new complaints feeling better no concerns voiced during my encounter 2-3 no acute events reported overnight, case discussed with nursing staff patient in no acute distress no complaints during my visit 2-4 patient hoping to go home soon, patient denies any acute events reported overnight her urination has gotten better and she understands that her numbers are coming down. Plan of care explained in detail all concerns addressed to the best of my ability Vitals Vitals Vital Signs Date Time Temp Pulse Resp B/P (MAP) Pulse Ox O2 Delivery O2 Flow Rate FiO2 11/04/20 07:00 98.3 68 18 150/83 (105) 97 Room Air 98.3 Physical Exam Physical Exam GEN: No apparent distress. Alert and oriented HEENT: Normal cephalic, atraumatic, external auditory canals are patent EYES: Extraocular muscles are intact, pupil are equally round and reactive to light and accommodation MUSCULOSKELETAL: Well developed , well nourished, good range of motion ENDOCRINE: No thyromegaly was palpated LYMPHATICS: No cervical chain or axillary nodes were noted HEMATOPOIETIC: No bruising NECK: Supple, no JVD, no thyromegaly was noted LUNGS: Clear to auscultation in all lung guerrero without rhonchi or wheezing HEART: RRR, S!, S2 present. Peripheral pulses intact, no obvious murmurs noted ABDOMEN: Soft, nontender. Positive bowel sounds, no organomegaly, normal bowel sounds EXTREMITIES: Without clubbing, cyanosis, or edema. Pedal pulses intact. Negative Homans sign NEUROLOGIC: Normal speech and tone. A&O x 3, moves all extremities, no obvious focal deficits PSYCHIATRIC: Normal affect, normal mood. Stable SKIN: No ulcerations or rashes, good skin turgor, no jaundice VASCULAR: Good capillary refill, neurovascular bundle appears to be intact General: Alert, Oriented X3, Cooperative, No acute distress Heart: Regular rate (SR), Normal S1, Normal S2, No murmurs Lungs: Clear Abdomen: Normal bowel sounds, Soft, No tenderness Extremities: No cyanosis, No edema Skin: No breakdown, No significant lesion Labs LABS Laboratory Tests Test 11/03/20 11:59 11/03/20 16:57 11/03/20 21:48 11/04/20 07:40 Glucose (Fingerstick) 192 mg/dL (70-99) 156 mg/dL (70-99) 182 mg/dL (70-99) Sodium Level 136 mmol/L (136-145) Potassium Level 4.2 mmol/L (3.5-5.1) Chloride Level 99 mmol/L (98-107) Carbon Dioxide Level 25 mmol/L (21-32) Anion Gap 12 (6-14) Blood Urea Nitrogen 36 mg/dL (7-20) Creatinine 6.5 mg/dL (0.6-1.0) Estimated GFR (Cockcroft-Gault) 6.5 Glucose Level 146 mg/dL (70-99) Calcium Level 9.4 mg/dL (8.5-10.1) Phosphorus Level 5.0 mg/dL (2.6-4.7) Albumin 3.1 g/dL (3.4-5.0) Test 11/04/20 07:52 Glucose (Fingerstick) 146 mg/dL (70-99) Assessment and Plan Assessmemt and Plan Problems Medical Problems: (1) Acute pancreatitis Status: Acute (2) ARF (acute renal failure) Status: Acute Comment Review of Relevant I have reviewed the following items misha (where applicable) has been applied. Labs Laboratory Tests Test 11/02/20 16:50 11/02/20 20:22 11/03/20 07:50 11/03/20 08:26 Glucose (Fingerstick) 220 mg/dL (70-99) 142 mg/dL (70-99) 160 mg/dL (70-99) Sodium Level 136 mmol/L (136-145) Potassium Level 4.1 mmol/L (3.5-5.1) Chloride Level 100 mmol/L (98-107) Carbon Dioxide Level 26 mmol/L (21-32) Anion Gap 10 (6-14) Blood Urea Nitrogen 32 mg/dL (7-20) Creatinine 5.4 mg/dL (0.6-1.0) Estimated GFR (Cockcroft-Gault) 8.0 Glucose Level 163 mg/dL (70-99) Calcium Level 9.3 mg/dL (8.5-10.1) Test 11/03/20 11:59 11/03/20 16:57 11/03/20 21:48 11/04/20 07:40 Glucose (Fingerstick) 192 mg/dL (70-99) 156 mg/dL (70-99) 182 mg/dL (70-99) Sodium Level 136 mmol/L (136-145) Potassium Level 4.2 mmol/L (3.5-5.1) Chloride Level 99 mmol/L (98-107) Carbon Dioxide Level 25 mmol/L (21-32) Anion Gap 12 (6-14) Blood Urea Nitrogen 36 mg/dL (7-20) Creatinine 6.5 mg/dL (0.6-1.0) Estimated GFR (Cockcroft-Gault) 6.5 Glucose Level 146 mg/dL (70-99) Calcium Level 9.4 mg/dL (8.5-10.1) Phosphorus Level 5.0 mg/dL (2.6-4.7) Albumin 3.1 g/dL (3.4-5.0) Test 11/04/20 07:52 Glucose (Fingerstick) 146 mg/dL (70-99) Laboratory Tests Test 11/03/20 11:59 11/03/20 16:57 11/03/20 21:48 11/04/20 07:40 Glucose (Fingerstick) 192 mg/dL (70-99) 156 mg/dL (70-99) 182 mg/dL (70-99) Sodium Level 136 mmol/L (136-145) Potassium Level 4.2 mmol/L (3.5-5.1) Chloride Level 99 mmol/L (98-107) Carbon Dioxide Level 25 mmol/L (21-32) Anion Gap 12 (6-14) Blood Urea Nitrogen 36 mg/dL (7-20) Creatinine 6.5 mg/dL (0.6-1.0) Estimated GFR (Cockcroft-Gault) 6.5 Glucose Level 146 mg/dL (70-99) Calcium Level 9.4 mg/dL (8.5-10.1) Phosphorus Level 5.0 mg/dL (2.6-4.7) Albumin 3.1 g/dL (3.4-5.0) Test 11/04/20 07:52 Glucose (Fingerstick) 146 mg/dL (70-99) Microbiology 10/26/20 Blood Culture - Final, Complete NO GROWTH AFTER 5 DAYS 10/26/20 Urine Culture - Final, Complete Medications Current Medications Sodium Chloride 1,000 ml @ 100 mls/hr 1X ONCE IV Last administered on 10/26/20at 11:28; Start 10/26/20 at 10:30; Stop 10/26/20 at 20:29; Status DC Ceftriaxone Sodium (Rocephin) 1 gm 1X ONCE IVP Last administered on 10/26/20at 11:28; Start 10/26/20 at 12:00; Stop 10/26/20 at 12:01; Status DC Pantoprazole Sodium (Protonix) 40 mg DAILYAC PO Last administered on 11/03/20at 05:35; Start 10/26/20 at 12:00 Polyethylene Glycol (miraLAX PACKET) 17 gm DAILY PO Last administered on 11/03/20at 08:27; Start 10/26/20 at 12:00 Bisacodyl (Dulcolax Tab) 5 mg PRN DAILY PRN PO CONSTIPATION, 2ND CHOICE Last administered on 11/03/20at 21:55; Start 10/26/20 at 12:00 Metoprolol Tartrate (Lopressor Vial) 5 mg PRN Q6HRS PRN IVP HYPERTENSION, 1ST CHOICE; Start 10/26/20 at 13:15; Stop 10/26/20 at 13:15; Status DC Labetalol HCl (Normodyne Iv Push) 20 mg PRN Q2HR PRN IVP HYPERTENSION; Start at 13:15; Stop 10/26/20 at 13:20; Status DC Labetalol HCl (Normodyne Iv Push) 10 mg PRN Q2HR PRN IVP HYPERTENSION Last administered on 10/26/20at 13:27; Start 10/26/20 at 13:30; Stop 10/28/20 at 12:06; Status DC Insulin Human Lispro (HumaLOG) 0-9 UNITS TIDWMEALS SQ Last administered on 11/03/20 17:03; Start 10/26/20 at 17:00 Dextrose (Dextrose 50%-Water Syringe) 12.5 gm PRN Q15MIN PRN IV SEE COMMENTS; Start 10/26/20 at 14:45; Stop 10/26/20 at 14:48; Status DC Sennosides (Senna) 17.2 mg PRN BID PRN PO CONSTIPATION. 1ST CHOICE Last administered on 11/03/20 21:55; Start 10/26/20 at 14:45 Docusate Sodium (Colace) 100 mg PRN DAILY PRN PO HARD STOOLS Last administered on 11/01/20at 21:13; Start 10/26/20 at 14:45 Ondansetron HCl (Zofran) 4 mg PRN Q6HRS PRN IVP NAUSEA/VOMITING Last administered on 11/04/20 09:16; Start 10/26/20 at 14:45 Dextrose (Dextrose 50%-Water Syringe) 12.5 gm PRN Q15MIN PRN IV SEE COMMENTS; Start 10/26/20 at 14:45 Acetaminophen (Tylenol) 650 mg PRN Q4HRS PRN PO TEMP OVER 100.4F OR MILD PAIN; Start 10/26/20 at 14:45 Sodium Chloride 1,000 ml @ 60 mls/hr [id number] IV Last administered on 10/30/20 21:26; Start 10/26/20 at 17:30 Amlodipine Besylate (Norvasc) 5 mg DAILY PO Last administered on 10/29/20at 10:23; Start 10/27/20 at 13:00; Stop 10/29/20 at 12:33; Status DC Ceftriaxone Sodium (Rocephin) 1 gm Q24H IVP Last administered on 11/03/20 12:15; Start 10/27/20 at 13:00 Lactobacillus Rhamnosus (Culturelle) 1 cap BID PO Last administered on 11/03/20 21:50; Start 10/27/20 at 21:00 Aspirin (Ecotrin) 81 mg DAILYWBKFT PO Last administered on 10/30/20at 09:21; Start 10/27/20 at 17:00; Stop 10/30/20 at 14:59; Status DC Carvedilol (Coreg) 6.25 mg BIDWMEALS PO Last administered on 11/03/20at 16:59; Start 10/27/20 at 17:00 Labetalol HCl (Normodyne Iv Push) 20 mg PRN Q2HR PRN IVP HYPERTENSION; Start 10/27/20 at 16:30 Atorvastatin Calcium (Lipitor) 10 mg QHS PO Last administered on 11/03/20at 21:50; Start 10/28/20 at 21:00 Amlodipine Besylate (Norvasc) 5 mg BID94 PO Last administered on 11/03/20 16:59; Start 10/29/20 at 16:00 Furosemide (Lasix) 60 mg 1X ONCE IVP Last administered on 10/29/20at 16:52; Start 10/29/20 at 16:00; Stop 10/29/20 at 16:04; Status DC Sevelamer Carbonate (Renvela) 800 mg TIDWMEALS PO Last administered on 11/03/20at 16:58; Start 10/30/20 at 17:00 Vitamin B Complex/ Vitamin C (Sidra-Evens) 1 tab DAILY PO Last administered on 11/03/20at 12:14; Start 10/30/20 at 17:00 Darbepoetin Storm (ARANESP for DIALYSIS PTS) 60 mcg WEEKLYHS SQ Last administered on 10/30/20at 21:25; Start 10/30/20 at 21:00 Lidocaine HCl (Buffered Lidocaine 1%) 3 ml STK-MED ONCE .ROUTE ; Start 10/31/20 at 11:23; Stop 10/31/20 at 11:23; Status DC Lidocaine HCl (Buffered Lidocaine 1%) 6 ml 1X ONCE INJ Last administered on 10/31/20at 11:30; Start 10/31/20 at 11:30; Stop 10/31/20 at 11:32; Status DC Sodium Chloride 1,000 ml @ 1,000 mls/hr Q1H PRN IV hypotension; Start 10/31/20 at 12:45; Stop 10/31/20 at 18:44; Status DC Diphenhydramine HCl (Benadryl) 25 mg 1X PRN PRN IV ITCHING; Start 10/31/20 at 12:45; Stop 11/01/20 at 12:44; Status DC Diphenhydramine HCl (Benadryl) 25 mg 1X PRN PRN IV ITCHING; Start 10/31/20 at 12:45; Stop 11/01/20 at 12:44; Status DC Sodium Chloride 1,000 ml @ 400 mls/hr Q2H30M PRN IV PATENCY; Start 10/31/20 at 12:45; Stop 11/01/20 at 00:44; Status DC Info (PHARMACY MONITORING -- do not chart) 1 each PRN DAILY PRN MC SEE COMMENTS; Start 10/31/20 at 12:45; Stop 11/02/20 at 11:49; Status DC Sodium Chloride 1,000 ml @ 1,000 mls/hr Q1H PRN IV hypotension; Start 11/01/20 at 14:00; Stop 11/01/20 at 19:59; Status DC Albumin Human 200 ml @ 200 mls/hr 1X PRN PRN IV Hypotension; Start 11/01/20 at 14:00; Stop 11/01/20 at 19:59; Status DC Sodium Chloride (Normal Saline Flush) 10 ml 1X PRN PRN IV AP catheter pack; Start 11/01/20 at 14:00; Stop 11/02/20 at 13:59; Status DC Sodium Chloride (Normal Saline Flush) 10 ml 1X PRN PRN IV PROCESSING SUPERVISOR catheter pack; Start 11/01/20 at 14:00; Stop 11/02/20 at 13:59; Status DC Sodium Chloride 1,000 ml @ 400 mls/hr Q2H30M PRN IV PATENCY; Start 11/01/20 at 14:00; Stop 11/02/20 at 01:59; Status DC Info (PHARMACY MONITORING -- do not chart) 1 each PRN DAILY PRN MC SEE COMMENTS; Start 11/01/20 at 14:00; Stop 11/02/20 at 11:49; Status DC Info (PHARMACY MONITORING -- do not chart) 1 each PRN DAILY PRN MC SEE COMMENTS; Start 11/01/20 at 14:00 Sodium Chloride 1,000 ml @ 1,000 mls/hr Q1H PRN IV hypotension; Start 11/04/20 at 08:15; Stop 11/04/20 at 14:14 Albumin Human 200 ml @ 200 mls/hr 1X PRN PRN IV Hypotension; Start 11/04/20 at 08:15; Stop 11/04/20 at 14:14 Sodium Chloride 1,000 ml @ 400 mls/hr Q2H30M PRN IV PATENCY; Start 11/04/20 at 08:15; Stop 11/04/20 at 20:14 Info (PHARMACY MONITORING -- do not chart) 1 each PRN DAILY PRN MC SEE COMMENTS; Start 11/04/20 at 08:15; Status UNV Info (PHARMACY MONITORING -- do not chart) 1 each PRN DAILY PRN MC SEE COMMENTS; Start 11/04/20 at 08:15; Status UNV Active Scripts Active Reported Aspir-Low (Aspirin) 81 Mg Tablet. 1 Tab PO DAILY Metformin Hcl Er (Metformin Hcl) 500 Mg Tab.er.24h 500 Mg PO BIDWMEALS Vitals/I & O Vital Sign - Last 24 Hours 11/03/20 11/03/20 11/03/20 11/03/20 11:00 12:14 12:15 15:00 Temp 98.5 97.5 98.5 97.5 Pulse 70 70 70 67 Resp 18 18 B/P (MAP) 134/73 (93) 134/73 134/73 129/77 (94) Pulse Ox 99 97 O2 Delivery Room Air Room Air 11/03/20 11/03/20 11/03/20 11/03/20 16:59 16:59 19:00 20:00 Temp 98.0 98.0 Pulse 65 65 69 Resp 18 B/P (MAP) 137/75 137/75 143/77 (99) Pulse Ox 94 O2 Delivery Room Air 11/03/20 11/04/20 11/04/20 23:00 03:00 07:00 Temp 98.8 98.5 98.3 98.8 98.5 98.3 Pulse 66 66 68 Resp 18 16 18 B/P (MAP) 113/61 (78) 138/74 (95) 150/83 (105) Pulse Ox 96 93 97 O2 Delivery Room Air Intake and Output 11/03/20 11/03/20 11/04/20 15:00 23:00 07:00 Intake Total 720 ml 980 ml 240 ml Output Total 200 ml Balance 720 ml 980 ml 40 ml Justicifation of Admission Dx: Justifications for Admission: Justification of Admission Dx: Yes CHF: Hemodynamic Instability Acute Renal Failure: RF Can't Be Managed Outpt Chronic Renal Failure: Renail Failure RENARD DUENAS MD Nov 04, 2020 10:17
[2020-11-04] MEDS ORDERED: LIDOCAINE WITH 8.4% SOD BICARB 3 ML DISP.SYRIN. ONE (13:05)
[2020-11-04] MEDS ORDERED: GELATIN SPONGE SIZE 12-7MM SPONGE. ONE (13:05)
[2020-11-04] MEDS ORDERED: LIDOCAINE 2%/EPI 1:100,000 20 ML VIAL. ONE (13:08)
[2020-11-04] MEDS ORDERED: MIDAZOLAM HCL/PF 2 MG/2 ML VIAL. ONE (13:24)
[2020-11-04] MEDS ORDERED: fentaNYL PF VIAL 100 MCG/2 ML VIAL ONE (13:24)
[2020-11-04] MEDS ORDERED: LIDOCAINE 2%/EPI 1:100,000 20 ML VIAL. IJ ONE (14:15)
[2020-11-04] MEDS ORDERED: fentaNYL PF VIAL 100 MCG/2 ML VIAL IV ONE (14:15)
[2020-11-04] MEDS ORDERED: LIDOCAINE WITH 8.4% SOD BICARB 3 ML DISP.SYRIN. IJ ONE (14:15)
[2020-11-04] MEDS ORDERED: MIDAZOLAM HCL/PF 2 MG/2 ML VIAL. IV ONE (14:15)
[2020-11-04] MEDS: cefTRIAXone IV Push 1 GM VIAL. IVP SCH (14:34)
--- NOTE | 2020-11-04 15:03 | RAD ---
Conversion of right internal jugular temporary dialysis catheter to a tunneled hemodialysis catheter Indication: Longer term dialysis access needed Procedure: The procedure was explained in its entirety to the patient or the patients designated patient registration representative by a member of the treatment team, including a discussion of the risks, benefits and commonly accepted alternatives to the procedure, as well as the expected consequences of no therapy whatsoever. Discussion of the risks included, but was not limited to, those that are most frequent and those that are rare but possibly severe or life-threatening, as well as the possibility of unforeseen complications. All elements of maximal sterile barrier technique including the use of a cap, mask, sterile gown, sterile gloves, large sterile sheet, appropriate hand hygiene, and 2% chlorhexidine for cutaneous antisepsis (or acceptable alternative antiseptic per current guidelines) were followed for this procedure. The pre-existing catheter was evaluated under fluoroscopy and found to be normal in position. A guidewire was advanced into the IVC. A 23 cm tip to cuff tunneled hemodialysis catheter was advanced from small dermatotomy, several centimeters inferior to the pre-existing catheter entry site, to the venotomy site. The pre-existing catheter was removed over the guidewire and a peel-away sheath placed. The new tunneled catheter was advanced through the peel-away sheath such that its tip was positioned in the proximal right atrium with the patient supine. The sheath was removed. The new catheter was found to flush and aspirate normally. Catheter was flushed, and secured in place. Sterile dressings were applied. No immediate complications were identified. Total fluoroscopy time: 1min Dose area product: 4 Gycm2 The procedure was performed under conscious sedation including continuous cardiopulmonary monitoring via dedicated sedation nurse. [id number] sedation time: 20 minutes Impression: Conversion of a right internal jugular temporary dialysis catheter to a tunneled dialysis catheter
--- NOTE | 2020-11-04 15:04 | RAD ---
11/04/2020 1:00 PM Procedure: Left renal biopsy Clinical Indication: REESE AND POSSIBLE ESRD Discussion: The procedure was explained in its entirety to the patient or the patients designated operations support representative by a member of the treatment team, including a discussion of the risks, benefits and commonly accepted alternatives to the procedure, as well as the expected consequences of no therapy whatsoever. Discussion of the risks included, but was not limited to, those that are most frequent and those that are rare but possibly severe or life-threatening, as well as the possibility of unforeseen complications. All elements of maximal sterile barrier technique including the use of a cap, mask, sterile gown, sterile gloves, large sterile sheet, appropriate hand hygiene, and 2% chlorhexidine for cutaneous antisepsis (or acceptable alternative antiseptic per current guidelines) were followed for this procedure. Ultrasound evaluation of the left kidney demonstrated morphology minimal biopsy. 1% lidocaine was administered for local anesthesia. A 17-gauge needle was advanced into the inferior left kidney. Core biopsy samples were obtained. Gelfoam embolization of the biopsy tract was performed as a guiding needle was removed. Repeat ultrasound demonstrated no significant hemorrhage or other immediate complication. The procedures performed under conscious sedation including continuous cardiopulmonary monitoring via dedicated sedation nurse. Dccx-cd-dyrt sedation time: 20 minutes Impression: Ultrasound-guided biopsy, left kidney
[2020-11-04] MEDS ORDERED: CARV6.2511 PO (15:35)
[2020-11-04] MEDS ORDERED: AMLO-186 PO (15:35)
[2020-11-04] MEDS ORDERED: PANT40TA77 PO (15:35)
[2020-11-04] MEDS ORDERED: INSU100I13 SQ (15:35)
[2020-11-04] MEDS ORDERED: ATOR10TA60 PO (15:35)
[2020-11-04] MEDS ORDERED: SEVE800T9 PO (15:35)
--- NOTE | 2020-11-04 15:45 | PDOC3 ---
Discharge Summary Visit Information Date of Admission: Oct 26, 2020 Date of Discharge: Nov 04, 2020 Admitting Diagnosis Comment: Acute hypertensive emergency Acute renal failure Hyponatremia Normocytic anemia Elevated lipase Final Diagnosis Problems Medical Problems: (1) Acute pancreatitis Status: Acute (2) ARF (acute renal failure) Status: Acute Brief Hospital Course Allergies Allergies Coded Allergies Type Severity Reaction Last Updated Verified No Known Drug Allergies 03/14/19 No Vital Signs Vital Signs Date Time Temp Pulse Resp B/P (MAP) Pulse Ox O2 Delivery O2 Flow Rate FiO2 11/04/20 15:13 Room Air 11/04/20 14:26 75 12 98 2.0 11/04/20 07:00 98.3 150/83 (105) 98.3 Lab Results Laboratory Tests Test 11/02/20 16:50 11/02/20 20:22 11/03/20 07:50 11/03/20 08:26 Glucose (Fingerstick) 220 mg/dL (70-99) 142 mg/dL (70-99) 160 mg/dL (70-99) Sodium Level 136 mmol/L (136-145) Potassium Level 4.1 mmol/L (3.5-5.1) Chloride Level 100 mmol/L (98-107) Carbon Dioxide Level 26 mmol/L (21-32) Anion Gap 10 (6-14) Blood Urea Nitrogen 32 mg/dL (7-20) Creatinine 5.4 mg/dL (0.6-1.0) Estimated GFR (Cockcroft-Gault) 8.0 Glucose Level 163 mg/dL (70-99) Calcium Level 9.3 mg/dL (8.5-10.1) Test 11/03/20 11:59 11/03/20 16:57 11/03/20 21:48 11/04/20 07:40 Glucose (Fingerstick) 192 mg/dL (70-99) 156 mg/dL (70-99) 182 mg/dL (70-99) Sodium Level 136 mmol/L (136-145) Potassium Level 4.2 mmol/L (3.5-5.1) Chloride Level 99 mmol/L (98-107) Carbon Dioxide Level 25 mmol/L (21-32) Anion Gap 12 (6-14) Blood Urea Nitrogen 36 mg/dL (7-20) Creatinine 6.5 mg/dL (0.6-1.0) Estimated GFR (Cockcroft-Gault) 6.5 Glucose Level 146 mg/dL (70-99) Calcium Level 9.4 mg/dL (8.5-10.1) Phosphorus Level 5.0 mg/dL (2.6-4.7) Albumin 3.1 g/dL (3.4-5.0) Test 11/04/20 07:52 11/04/20 11:47 Glucose (Fingerstick) 146 mg/dL (70-99) 89 mg/dL (70-99) Laboratory Tests Test 11/03/20 16:57 11/03/20 21:48 11/04/20 07:40 11/04/20 07:52 Glucose (Fingerstick) 156 mg/dL (70-99) 182 mg/dL (70-99) 146 mg/dL (70-99) Sodium Level 136 mmol/L (136-145) Potassium Level 4.2 mmol/L (3.5-5.1) Chloride Level 99 mmol/L (98-107) Carbon Dioxide Level 25 mmol/L (21-32) Anion Gap 12 (6-14) Blood Urea Nitrogen 36 mg/dL (7-20) Creatinine 6.5 mg/dL (0.6-1.0) Estimated GFR (Cockcroft-Gault) 6.5 Glucose Level 146 mg/dL (70-99) Calcium Level 9.4 mg/dL (8.5-10.1) Phosphorus Level 5.0 mg/dL (2.6-4.7) Albumin 3.1 g/dL (3.4-5.0) Test 11/04/20 11:47 Glucose (Fingerstick) 89 mg/dL (70-99) Brief Hospital Course HPI: Patient is a 60-year-old female with past medical history of diabetes mellitus type 2 who comes in with complaints of dizziness and weakness in her lower extremities. She also had some right-sided flank pain in which she had a injection trigger point last week and said that her pain improved slightly with that. However, she has been dealing with this dizziness for the past couple of weeks. Patient denies any fevers, chills, rashes, chest pain or shortness of breath or abdominal pain or dysuria. Patient does have a history of diabetes which she takes Metformin as she said that she takes other medications in which she said that she does not feel good taking them. Patient did have some outpatient lab work done at that is why she came because they stated that she had some renal failure. Patient does also have a remote history of a cyst drainage percutaneously done in February 2019. She also had a nephrostomy tube that was placed but that was removed by urology around that time. Denies kidney stones, dysuria, hematuria or incontinence or frequency. Of note, patient was recently admitted to the hospital for treatment for pneumonia and she was taking Levaquin at that time. 130 cr remains elevated at 7.1 , 700cc urine output 10-2831 STABLE BUT RENAL FUNCTION NOT RECOVERING WELL CR 7.4 2-1 no acute events reported overnight, case discussed with nursing staff patient in no acute distress no complaints during my visit 2-2 Patient with no new complaints feeling better no concerns voiced during my encounter 2-3 no acute events reported overnight, case discussed with nursing staff patient in no acute distress no complaints during my visit 2-4 patient hoping to go home soon, patient denies any acute events reported overnight her urination has gotten better and she understands that her numbers are coming down. Plan of care explained in detail all concerns addressed to the best of my ability 2-5 patient had dialysis today and she also had a permacath placed, patient continued to feel better compared to yesterday. Case management help arrange for an outpatient hemodialysis chair time. Signs and symptoms of concern and when to seek medical attention was discussed with the patient prior to discharge she was taking Metformin but at this point this will be discontinued and she will be put on Lantus. This hopefully will maintain her glycemia better, all her concerns were addressed to the best of my abilities General: Alert, Oriented X3, Cooperative, No acute distress Heart: Regular rate (SR), Normal S1, Normal S2, No murmurs Lungs: Clear Abdomen: Normal bowel sounds, Soft, No tenderness Extremities: No cyanosis, No edema Skin: No breakdown, No significant lesion Assessment Assessment IMAGING REPORT Signed PATIENT: CORTNEY RAMOS ACCOUNT: [id number] : 1960 LOCATION: [address] [place] [address] AGE: 60 SEX: F EXAM STATUS: ADM IN ORD. PHYSICIAN: MEI YEAGER MD REASON: REESE AND POSSIBLE ESRD PROCEDURE: [id number] PERCUTANEOUS RENAL BX 11/04/2020 1:00 PM Procedure: Left renal biopsy Clinical Indication: REESE AND POSSIBLE ESRD Discussion: The procedure was explained in its entirety to the patient or the patients designated community health representative by a member of the treatment team, including a discussion of the risks, benefits and commonly accepted alternatives to the procedure, as well as the expected consequences of no therapy whatsoever. Discussion of the risks included, but was not limited to, those that are most frequent and those that are rare but possibly severe or life-threatening, as well as the possibility of unforeseen complications. All elements of maximal sterile barrier technique including the use of a cap, mask, sterile gown, sterile gloves, large sterile sheet, appropriate hand hygiene, and 2% chlorhexidine for cutaneous antisepsis (or acceptable alternative antiseptic per current guidelines) were followed for this procedure. Ultrasound evaluation of the left kidney demonstrated morphology minimal biopsy. 1% lidocaine was administered for local anesthesia. A 17-gauge needle was advanced into the inferior left kidney. Core biopsy samples were obtained. Gelfoam embolization of the biopsy tract was performed as a guiding needle was removed. Repeat ultrasound demonstrated no significant hemorrhage or other immediate complication. The procedures performed under conscious sedation including continuous cardiopulmonary monitoring via dedicated sedation nurse. Udoe-fy-kfmg sedation time: 20 minutes Impression: Ultrasound-guided biopsy, left kidney IMAGING REPORT Signed PATIENT: CORTNEY RAMOS ACCOUNT: [id number] : 1960 LOCATION: [address] [place] [address] AGE: 60 SEX: F EXAM STATUS: ADM IN ORD. PHYSICIAN: JOLYNN CHOI MD REASON: REESE, RENAL FAILURE PROCEDURE: [id number] REPLCE TUNL CAT WO PORT Conversion of right internal jugular temporary dialysis catheter to a tunneled hemodialysis catheter Indication: Longer term dialysis access needed Procedure: The procedure was explained in its entirety to the patient or the patients designated community health representative by a member of the treatment team, including a discussion of the risks, benefits and commonly accepted alternatives to the procedure, as well as the expected consequences of no therapy whatsoever. Discussion of the risks included, but was not limited to, those that are most frequent and those that are rare but possibly severe or life-threatening, as well as the possibility of unforeseen complications. All elements of maximal sterile barrier technique including the use of a cap, mask, sterile gown, sterile gloves, large sterile sheet, appropriate hand hygiene, and 2% chlorhexidine for cutaneous antisepsis (or acceptable alternative antiseptic per current guidelines) were followed for this procedure. The pre-existing catheter was evaluated under fluoroscopy and found to be normal in position. A guidewire was advanced into the IVC. A 23 cm tip to cuff tunneled hemodialysis catheter was advanced from small dermatotomy, several centimeters inferior to the pre-existing catheter entry site, to the venotomy site. The pre-existing catheter was removed over the guidewire and a peel-away sheath placed. The new tunneled catheter was advanced through the peel-away sheath such that its tip was positioned in the proximal right atrium with the patient supine. The sheath was removed. The new catheter was found to flush and aspirate normally. Catheter was flushed, and secured in place. Sterile dressings were applied. No immediate complications were identified. Total fluoroscopy time: 1min Dose area product: 4 Gycm2 The procedure was performed under conscious sedation including continuous cardiopulmonary monitoring via dedicated sedation nurse. Uldg-ue-ctfd sedation time: 20 minutes Impression: Conversion of a right internal jugular temporary dialysis catheter to a tunneled dialysis catheter Discharge Information Condition at Discharge: Improved Follow Up: Weeks Disposition/Orders: D/C to Home Scheduled Amlodipine Besylate (Amlodipine Besylate) 5 Mg Tablet, 5 MG PO DAILY for htn for 30 Days, #30 Prescribed by: RENARD DUENAS MD on 11/04/20 1535 Aspirin (Aspir-Low) 81 Mg Tablet.dr, 1 TAB PO DAILY for prophylaxis, #30 Ref 3 (Reported) Entered as Reported by: MORENO PANIAGUA on 10/18/19 2215 Last Action: Reviewed on 10/26/20 1223 by SLOAN LAMBERT Atorvastatin Calcium (Atorvastatin Calcium) 10 Mg Tablet, 10 MG PO QHS for dyslipidemia for 30 Days, #30 Prescribed by: RENARD DUENAS MD on 11/04/20 1535 Carvedilol (Carvedilol ) 6.25 Mg Tablet, 6.25 MG PO BIDWMEALS for HTN for 30 Days, #60 Prescribed by: RENARD DUENAS MD on 11/04/20 1535 Insulin Glargine,Hum.rec.anlog (Lantus Solostar) 100 Unit/1 Ml Insuln.pen, 10 UNIT SQ QHS for DM, #15 Ref 3 Prescribed by: RENARD DUENAS MD on 11/04/20 1535 Pantoprazole Sodium (Pantoprazole Sodium ) 40 Mg Tablet.dr, 40 MG PO DAILYAC for GERD for 30 Days, #30 Prescribed by: RENARD DUENAS MD on 11/04/20 1535 Sevelamer Carbonate (Renvela) 800 Mg Tablet, 800 MG PO TIDWMEALS for binder for 30 Days, #90 Prescribed by: RENARD DUENAS MD on 11/04/20 1535 Discontinued Medications Metformin Hcl (Metformin Hcl Er) 500 Mg Tab.er.24h, 500 MG PO BIDWMEALS, (Reported) Entered as Reported by: CONTRERAS TRUJILLO on 10/18/19 1657 Last Action: Reviewed on 10/26/20 1223 by SLOAN LAMBERT Justicifation of Admission Dx: Justifications for Admission: Justification of Admission Dx: Yes CHF: Hemodynamic Instability Acute Renal Failure: RF Can't Be Managed Outpt Chronic Renal Failure: Renail Failure RENARD DUENAS MD Nov 04, 2020 15:45
--- NOTE | 2020-11-04 18:25 | NUR ---
Discharge Note: Patient was discharged home with self care. Patients IV was discontinued without any complications per RN. Patient was discharged home with tunneled right chest dialysis catheter. Patient was given information on her dialysis center and day and times. Patients spouse at the bedside at the time of discharge education. Patient was also given discharge summary/instructions, follow-ups, and educational material. Patient was educated on how to give herself insulin shots but refused to give herself the insulin shot at dinner time. Patients new prescriptions were sent to patients preferred pharmacy. Patient was give information on dialysis diet and restrictions. Patient was educate on how to care for dialysis catheter. Patients left kidney biopsy site was clean dry and intact, no complications. Patient was taken down to the ER entrance via wheelchair with all personal belongings accompanied by [facility], where her was waiting for her to take her home.
--- NOTE | 2020-11-08 16:09 | PATHOLOGY ---
[facility] Accession Number: [id number] . 01 Material submitted: . renal pelvis - LEFT RENAL BIOPSY. Modifiers: left . 01 Clinical history: . REESE RENAL FAILURE . 02 Diagnosis: Special studies report received from [facility], [address] [place] [address], [place] [address], on case [id number], labeled with their number [id number], dated 11/07/2020. . Specimen submitted: By Anni Nguyen MD For Kidney, biopsy . DIAGNOSIS: Acute and Chronic Tubular Injury. Mild Diabetic Glomerulopathy, RPS Class I. . Chronicity Summary Total Glomeruli- 38 Global Glomerulosclerosis- 2 Segmental Sclerosis- Absent Interstitial Fibrosis- Mild Tubular Atrophy- Mild Arterial Intimal Fibrosis- Mild Arteriolar Hyalinosis- Mild . Reference: Agueda TW, Valdez AL, Byron K, et al. Pathologic classification of diabetic nephropathy. J Am Soc Nephrol.2010;21:556-563. . Clinical History: The patient is a 60-year-old female with acute kidney injury occurring in the setting of chronic kidney disease. Her creatinine is currently 8, up from her baseline of 1.5 to 1.8. She has a history of diabetes. She recently had a UTI which was treated with Cipro. . Gross Description: Received from [facility] via [facility] are two specimen bottles; one bottle contains formalin and the other contains Jose Cruz's fixative. The bottles are labeled with the patient's name (Dina Teixeira) and date of (1960). Per the submitted paperwork, the outside number is [id number]. . Received in formalin is one piece of grover tissue measuring 2.0 x 0.1 x 0.1 cm (dissected). Two pieces are submitted for electron microscopy and the remainder of the tissue is submitted in its entirety for light microscopy. . Received in Jose Cruz's fixative is one piece of grover tissue measuring 1.4 x 0.1 x 0.1 cm. The specimen is submitted in its entirety for immunofluorescence microscopy. . Microscopic Description: . LIGHT MICROSCOPY: Sections reveal areas of renal tissue approximately 90% of which consist of renal cortex. Twenty glomeruli are present, one of which is globally sclerotic. The glomeruli are normocellular. The mesangial areas show mild matrix increase. Evidence of acute tubular injury is present. Scattered areas of mild interstitial inflammation are noted, predominantly in association with injured/ruptured tubules. Areas of mild interstitial fibrosis and tubular atrophy involve an estimated 20% of the submitted parenchyma. There is mild fibrointimal thickening of small arteries and mild hyalinosis of arterioles. A [place] red stain for amyloid is performed and is negative. Examination of two toluidine blue-stained sections prepared for electron microscopy reveals areas of renal cortex containing two glomeruli, one of which is globally sclerotic. . Standard of care requirements for proper analysis of renal biopsies mandates serial sections, and PAS, Barrera silver, trichrome and SMMT stains at multiple levels. PAS stains are used to evaluate various aspects of the glomerular, tubular, and vascular basement membranes. Barrera silver stains are used to evaluate thickening, reduplication, "spiking" or "bubbling" of the glomerular basement membrane. Toluidine blue stained sections highlight glomerular basement membranes and demonstrates unusual types of deposits. It also reveals details of tubular epithelial cells and aids in the analysis of vascular lesions. Janie trichrome stains are used to evaluate interstitial fibrosis and basement membrane deposits. The SMMT stain helps evaluate basement membrane changes, immune deposits and tubulointerstitial scarring. Controls are routinely run on all special stains and are verified for acceptability. A review of the technical quality of routine slides is made before results are reported. . IMMUNOFLUORESCENCE: The sections are stained for IgG, IgM, IgA, C3, C1q, albumin, fibrinogen, and kappa and lambda light chains. The renal parenchyma submitted consists of 80% cortex. Sixteen glomeruli are present for evaluation with one globally sclerotic. All stains are negative in glomeruli. There is no significant extraglomerular staining. [place] and lambda stain equally throughout the tubulointerstitium. . Performance of all immunofluorescence stains are verified for acceptability before results are reported. Internal antigens within the kidney parenchyma serve as positive and negative controls. . ELECTRON MICROSCOPY: Two blocks are prepared. Ultrastructural examination of the available intact glomerulus reveals segmental mild thickening of the glomerular basement membranes. The visceral epithelial cell foot processes are generally intact. No subepithelial, subendothelial, or mesangial electron-dense deposits are identified. . Special procedures including immunofluorescence and electron microscopy correlate with the light microscopy findings. . Note: Some of the tests reported here may have been developed and performance characteristics determined by [facility]. They have not been cleared or approved by the U.S. Food and Drug Administration (FDA). The FDA does not require this test to go through premarket FDA review. This test is used for clinical purposes. It should not be regarded as investigational or for research. [facility] is certified under the Clinical Laboratory Improvement Amendments of 1988 (CLIA) as qualified to perform high complexity clinical laboratory testing. . Physician/Physician's office called on 11/07/2020 at 4:18 PM Central. . *I have reviewed the clinical history, the pertinent gross findings, all microscopic materials, discussed the case with the clinician when appropriate, and have rendered the final diagnosis. . . Final Diagnosis performed by Abbie Sher M.D. Electronically signed 11/07/2020 6:01:09PM . . A complete copy of the report is on file. . Professional and technical services performed by [facility] at [address] [place] [address], [facility]. (JPM:duy 11/08/2020) QMS 11/08/2020 1155 Local . 02 Electronically signed: . Carlos Manuel Vasques MD, Pathologist NPI- [id number] . 01 Gross description: . The specimen is received in formalin, labeled "Dina Teixeira, left kidney". Received is a single needle core of pale grover tissue measuring 2.0 cm in length by 0.1 cm in diameter. The specimen is forwarded to an outside laboratory for further processing. . Also received is a container of Jose Cruz's fixative, labeled "Dina Teixeira, left kidney". Received is a single needle core of pale grover tissue measuring 1.2 cm in length by 0.1 cm in diameter. The specimen is forwarded to an outside laboratory for further processing. (CAA; 11/04/2020) QAC/QAC 11/04/2020 [facility] . 02 Pathologist provided ICD-10: N05.9 . 02 CPT . 988429 Specimen Comment: A courtesy copy of this report has been sent to [phone] Specimen Comment: Report sent to Performed at: 01 [facility] [address] [facility] [address], [place] [id number] MD Daryl Mcgowan MD Phone: [phone] Performed at: [address] [facility] [address] [place], [place] [id number] MD Calros Manuel Vasques MD Phone: [phone]
== END 2020-11-04 18:31 | disposition home or self-care (01) | DRG 674 ==
LOC: ER 09:06 → 5 NORTH 10:09
PROVIDERS: ADMIT Internal Medicine; ATTEND Internal Medicine
PROC: B548ZZA Ultrasonography of Superior Vena Cava, Guidance (ICD-10-PCS; 2020-10-31)
PROC: 02H633Z Insertion of Infusion Device into Right Atrium, Percutaneous Approach (ICD-10-PCS; 2020-10-31)
PROC: B5181ZA Fluoroscopy of Superior Vena Cava using Low Osmolar Contrast, Guidance (ICD-10-PCS; 2020-10-31)
PROC: 5A1D70Z Performance of Urinary Filtration, Intermittent, Less than 6 Hours Per Day (ICD-10-PCS; 2020-10-31)
PROC: 5A1D70Z Performance of Urinary Filtration, Intermittent, Less than 6 Hours Per Day (ICD-10-PCS; 2020-11-01)
PROC: 0JH63XZ Insertion of Tunneled Vascular Access Device into Chest Subcutaneous Tissue and Fascia, Percutaneous Approach (ICD-10-PCS; principal; 2020-11-04)
PROC: 0TB13ZX Excision of Left Kidney, Percutaneous Approach, Diagnostic (ICD-10-PCS; 2020-11-04)
PROC: 02H633Z Insertion of Infusion Device into Right Atrium, Percutaneous Approach (ICD-10-PCS; 2020-11-04)
PROC: B5181ZA Fluoroscopy of Superior Vena Cava using Low Osmolar Contrast, Guidance (ICD-10-PCS; 2020-11-04)
PROC: 02PAX3Z Removal of Infusion Device from Heart, External Approach (ICD-10-PCS; 2020-11-04)
PROC: 5A1D70Z Performance of Urinary Filtration, Intermittent, Less than 6 Hours Per Day (ICD-10-PCS; 2020-11-04)
DX: N17.0 Acute kidney failure with tubular necrosis (principal); I16.1 Hypertensive emergency; E87.1 Hypo-osmolality and hyponatremia; I50.42 Chronic combined systolic (congestive) and diastolic (congestive) heart failure; E87.2 Acidosis; I13.2 Hypertensive heart and chronic kidney disease with heart failure and with stage 5 chronic kidney disease, or end stage renal disease; N18.6 End stage renal disease; N13.6 Pyonephrosis; K21.9 Gastro-esophageal reflux disease without esophagitis; E11.22 Type 2 diabetes mellitus with diabetic chronic kidney disease; D63.1 Anemia in chronic kidney disease; E87.5 Hyperkalemia; K80.20 Calculus of gallbladder without cholecystitis without obstruction; K76.0 Fatty (change of) liver, not elsewhere classified; I25.5 Ischemic cardiomyopathy; Z20.822 Contact with and (suspected) exposure to COVID-19; E86.9 Volume depletion, unspecified; M19.90 Unspecified osteoarthritis, unspecified site; I25.10 Atherosclerotic heart disease of native coronary artery without angina pectoris; I25.2 Old myocardial infarction; K57.30 Diverticulosis of large intestine without perforation or abscess without bleeding; Z79.82 Long term (current) use of aspirin; Z80.9 Family history of malignant neoplasm, unspecified; Z82.49 Family history of ischemic heart disease and other diseases of the circulatory system; Z83.3 Family history of diabetes mellitus; Z87.891 Personal history of nicotine dependence; Z79.84 Long term (current) use of oral hypoglycemic drugs; Z99.2 Dependence on renal dialysis
CPT/HCPCS: 36415; 36556; 36558; 36581; 50200; 71045; 74176; 76937; 76942; 77001; 78707; 80048; 80053; 80061; 80069; 80076; 81001; 82436; 82962; 83036; 83540; 83550; 83605; 83690; 83735; 83970; 84100; 84133; 84156; 84165; 84300; 84484; 85025; 85027; 85610; 86317; 86704; 86705; 86709; 86803; 87040; 87086; 87340; 87426; 88300; 93005; 93306; 96361; 96374; 99152; 99153; A4215; A9562; C1750; C1892; J0696; J0882; J1815; J1940; J2250; J2405; J3010; J3490; J7030; U0003; 97110-GP; 97116-GP; 99285-25; G0378